=== PATIENT | female | born 1935 | race African-American/Black ===

== ENCOUNTER 2017-02-20 21:25 | Inpatient (IN) | payer OTHER ==
[2017-02-21] MEDS ORDERED: NS 1000 ML 1,000 ML ONE (01:34)
[2017-02-21] MEDS: NS 1000 ML 1,000 ML IV SCH ×3 (02:50→23:30)
[2017-02-21 07:20] VITALS: BMI 49.9
[2017-02-22] MEDS ORDERED: DUONEB 0.5 MG/3 MG IN PRN (09:04)
[2017-02-22] MEDS ORDERED: HumuLIN R SC PRN (09:04)
[2017-02-22] MEDS: NS 1000 ML 1,000 ML IV SCH ×3 (09:09→19:15)
[2017-02-22] MEDS ORDERED: PATIENT'S HOME MEDICATION RESPIRATORY (Losartan Potassium [Losartan Potassium] 25 MG) PO SCH (09:15)
[2017-02-22] MEDS: TAB-A-VITE PO SCH (10:04)
[2017-02-22] MEDS: COZAAR PO SCH (10:04)
[2017-02-22] MEDS: SYNTHROID 100 mcg TAB PO SCH (10:05)
[2017-02-22] MEDS: MIRALAX POWDER (1 DOSE 17GM) PO SCH (10:05)
[2017-02-22] MEDS: PROTONIX TAB 40 MG PO SCH (10:05)
[2017-02-22] MEDS: JUVEN PO SCH ×2 (10:05→20:39)
[2017-02-22] MEDS: ASPIRIN EC 81 MG PO SCH (10:05)
[2017-02-22] MEDS: ZYLOPRIM PO SCH (10:05)
[2017-02-22] MEDS: DUONEB 0.5 MG/3 MG IN PRN ×2 (12:30→17:22)
[2017-02-22 13:54] LABS: BASOPHILS % (AUTO) 0.7 % (0.2-1.0); EOSINOPHILS # (AUTO) 0.3 x10^3/uL (0.0-0.2); EOSINOPHILS % (AUTO) 5.8 % (0.9-2.9); LYMPHOCYTES # (AUTO) 1.3 X10^3/uL (1.3-2.9); MEAN CORPUSCULAR HEMOGLOBIN 26.5 pg (27.0-34.0); MEAN CORPUSCULAR HGB CONC 31.4 g/dL (33.0-35.0); MEAN CORPUSCULAR VOLUME 84.5 fL (80.0-100.0); MEAN PLATELET VOLUME 9.1 fL (7.4-11.0); MONOCYTES # (AUTO) 0.4 x10^3/uL (0.3-0.8); MONOCYTES % (AUTO) 8.6 % (0.0-13.0); NEUTROPHILS # (AUTO) 2.4 x10^3/uL (2.2-4.8); NEUTROPHILS % (AUTO) 54.9 % (42.0-75.0); PLATELET COUNT 179 X10^3/uL (150.0-450.0); RED BLOOD COUNT 3.79 X10^6/uL (3.5-5.4); RED CELL DISTRIBUTION WIDTH 18.9 % (11.6-16.5); WHITE BLOOD COUNT 4.3 X10^3/uL (3.6-10.0)
[2017-02-22 14:00] LABS: ALBUMIN 2.8 g/dL (3.4-5.0); CALCIUM 9.7 mg/dL (8.5-10.1); CARBON DIOXIDE 26.5 mmol/L (21-32); COR CA(FOR HYPOALB) 10.7 mg/dL (8.5-10.1); CREATININE 2.85 mg/dL (0.55-1.02); TOTAL PROTEIN 6.8 g/dL (6.4-8.2)
[2017-02-22] MEDS: LIPITOR TAB 40 MG PO SCH (20:36)
[2017-02-22] MEDS: COREG TAB 12.5 MG PO SCH (20:36)
[2017-02-22] MEDS: LEVEMIR SC SCH (20:38)
[2017-02-23 05:40] LABS: BASOPHILS % (AUTO) 0.5 % (0.2-1.0); EOSINOPHILS # (AUTO) 0.2 x10^3/uL (0.0-0.2); EOSINOPHILS % (AUTO) 5.8 % (0.9-2.9); HEMATOCRIT 29.7 % (36.0-47.0); HEMOGLOBIN 9.3 g/dL (12.0-16.0); LYMPHOCYTES # (AUTO) 1.1 X10^3/uL (1.3-2.9); MEAN CORPUSCULAR HEMOGLOBIN 26.6 pg (27.0-34.0); MEAN CORPUSCULAR HGB CONC 31.5 g/dL (33.0-35.0); MEAN CORPUSCULAR VOLUME 84.5 fL (80.0-100.0); MEAN PLATELET VOLUME 8.6 fL (7.4-11.0); MONOCYTES # (AUTO) 0.3 x10^3/uL (0.3-0.8); MONOCYTES % (AUTO) 7.9 % (0.0-13.0); NEUTROPHILS # (AUTO) 2.4 x10^3/uL (2.2-4.8); NEUTROPHILS % (AUTO) 58.8 % (42.0-75.0); PLATELET COUNT 173 X10^3/uL (150.0-450.0); RED BLOOD COUNT 3.51 X10^6/uL (3.5-5.4); RED CELL DISTRIBUTION WIDTH 19.1 % (11.6-16.5)
[2017-02-23 05:44] LABS: ALBUMIN 2.5 g/dL (3.4-5.0); CARBON DIOXIDE 25.6 mmol/L (21-32); COR CA(FOR HYPOALB) 10.2 mg/dL (8.5-10.1); CREATININE 2.6 mg/dL (0.55-1.02); TOTAL PROTEIN 6.1 g/dL (6.4-8.2)
[2017-02-23] MEDS: NS 1000 ML 1,000 ML IV SCH ×2 (05:46→17:23)
[2017-02-23] MEDS: COLACE CAP 100 MG PO SCH (09:38)
[2017-02-23] MEDS: ASPIRIN EC 81 MG PO SCH (09:38)
[2017-02-23] MEDS: COZAAR PO SCH (09:38)
[2017-02-23] MEDS: PROTONIX TAB 40 MG PO SCH (09:38)
[2017-02-23] MEDS: ZYLOPRIM PO SCH (09:38)
[2017-02-23] MEDS: TAB-A-VITE PO SCH (09:38)
[2017-02-23] MEDS: JUVEN PO SCH ×2 (09:39→20:51)
[2017-02-23] MEDS: SYNTHROID 100 mcg TAB PO SCH (09:39)
[2017-02-23] MEDS: MIRALAX POWDER (1 DOSE 17GM) PO SCH (09:39)
[2017-02-23] MEDS: COREG TAB 12.5 MG PO SCH ×2 (09:39→20:52)
[2017-02-23] MEDS: LEVEMIR SC SCH ×2 (09:41→20:53)
[2017-02-23] MEDS: PLAVIX PO SCH (09:42)
[2017-02-23] MEDS: DUONEB 0.5 MG/3 MG IN PRN (12:30)
[2017-02-23] MEDS: LIPITOR TAB 40 MG PO SCH (20:52)
[2017-02-24 05:27] LABS: BASOPHILS % (AUTO) 0.8 % (0.2-1.0); EOSINOPHILS # (AUTO) 0.3 x10^3/uL (0.0-0.2); EOSINOPHILS % (AUTO) 6.9 % (0.9-2.9); HEMATOCRIT 29.2 % (36.0-47.0); HEMOGLOBIN 9.3 g/dL (12.0-16.0); LYMPHOCYTES # (AUTO) 1.3 X10^3/uL (1.3-2.9); LYMPHOCYTES % (AUTO) 29.8 % (21.0-51.0); MEAN CORPUSCULAR HEMOGLOBIN 26.8 pg (27.0-34.0); MEAN CORPUSCULAR HGB CONC 31.8 g/dL (33.0-35.0); MEAN CORPUSCULAR VOLUME 84.3 fL (80.0-100.0); MEAN PLATELET VOLUME 9.2 fL (7.4-11.0); MONOCYTES # (AUTO) 0.3 x10^3/uL (0.3-0.8); MONOCYTES % (AUTO) 7.2 % (0.0-13.0); NEUTROPHILS # (AUTO) 2.4 x10^3/uL (2.2-4.8); NEUTROPHILS % (AUTO) 55.3 % (42.0-75.0); PLATELET COUNT 158 X10^3/uL (150.0-450.0); RED BLOOD COUNT 3.46 X10^6/uL (3.5-5.4); RED CELL DISTRIBUTION WIDTH 19.5 % (11.6-16.5); WHITE BLOOD COUNT 4.4 X10^3/uL (3.6-10.0)
[2017-02-24 05:38] LABS: ALBUMIN 2.4 g/dL (3.4-5.0); CALCIUM 8.9 mg/dL (8.5-10.1); CARBON DIOXIDE 25.7 mmol/L (21-32); COR CA(FOR HYPOALB) 10.2 mg/dL (8.5-10.1); CREATININE 2.29 mg/dL (0.55-1.02)
[2017-02-24] MEDS: NS 1000 ML 1,000 ML IV SCH ×2 (05:41→16:49)
[2017-02-24] MEDS: PLAVIX PO SCH (08:45)
[2017-02-24] MEDS: PROTONIX TAB 40 MG PO SCH (08:46)
[2017-02-24] MEDS: COREG TAB 12.5 MG PO SCH ×2 (08:46→21:43)
[2017-02-24] MEDS: TAB-A-VITE PO SCH (08:46)
[2017-02-24] MEDS: COZAAR PO SCH (08:47)
[2017-02-24] MEDS: SYNTHROID 100 mcg TAB PO SCH (08:47)
[2017-02-24] MEDS: COLACE CAP 100 MG PO SCH (08:49)
[2017-02-24] MEDS: ZYLOPRIM PO SCH (08:49)
[2017-02-24] MEDS: ASPIRIN EC 81 MG PO SCH (08:49)
[2017-02-24] MEDS: LEVEMIR SC SCH ×2 (08:50→21:46)
[2017-02-24] MEDS: JUVEN PO SCH ×2 (08:51→21:41)
[2017-02-24] MEDS: MIRALAX POWDER (1 DOSE 17GM) PO SCH (08:51)
[2017-02-24] MEDS: DUONEB 0.5 MG/3 MG IN PRN (11:34)
--- NOTE | 2017-02-24 18:00 | PCM.PROG ---
Progress Note - Progress Note for Day of Date: 02/24/17 - Subjective Subjective: patient is a 82-year-old black female who was admitted on 511 with acunic renal failur with lower extremity edema. Patient has had gradual improvement of BUN/creatinine with gentle IV hydration as well as improved lower extremity edema. Patient denies any respiratory distress or any new pain or symptoms. Patient resting quietly. Informed family we will continue gentle hydration for 2-3 more days as patient's renal function improves. Plan to repeat a.m. labs and chest x-ray - Past Medical Family Social History Past Med/Fam/Surg Hx: No changes since H&P Allergies: Allergies Tramadol [From Ultram] Allergy (Intermediate, Verified 11/20/16 10:06) hallucinations - Review of Systems ROS: No change since H&P - Vital Signs and I&O's Vital Signs: Temperature 97.6 F Pulse Rate [Right Brachial] 79 Respiratory Rate 20 Blood Pressure [Right Arm] 146/66 Blood Pressure [Left Arm] 120/67 Blood Pressure 120/67 O2 Sat by Pulse Oximetry 100 Intake and Output: Intake & Output 02/22/17 02/23/17 02/24/17 02/25/17 11:59 11:59 11:59 11:59 Intake Total 3315 2360 2135 480 Output Total 0 Balance 3315 2360 2135 480 - Physical Exam Oriented: Person Eyes: Normal Ear: Normal Nose: Normal Throat: Normal Respiratory: Diminished Cardiovascular: Edema (+1 BILATERAL LOWER EXTREMITY EDEMA TO [place]) Tenderness: Normal Skin: Decreased Turgur Musculoskeletal: Back:Lumbar, Motor Deficit (BILATERAL LOWER EXTREMITY WEAKNESS) Speech Pattern: Clear, Appropriate - Laboratory and Diagnostics Result Diagrams: 02/24/17 03:45 02/24/17 03:45 Labs: Laboratory WBC 4.4 X10^3/uL (3.6-10.0) 02/24/17 03:45 RBC 3.46 X10^6/uL (3.5-5.4) L 02/24/17 03:45 Hgb 9.3 g/dL (12.0-16.0) L 02/24/17 03:45 Hct 29.2 % (36.0-47.0) L 02/24/17 03:45 MCV 84.3 fL (80.0-100.0) 02/24/17 03:45 MCH 26.8 pg (27.0-34.0) L 02/24/17 03:45 MCHC 31.8 g/dL (33.0-35.0) L 02/24/17 03:45 RDW 19.5 % (11.6-16.5) H 02/24/17 03:45 Plt Count 158 X10^3/uL (150.0-450.0) 02/24/17 03:45 MPV 9.2 fL (7.4-11.0) 02/24/17 03:45 Neut % 55.3 % (42.0-75.0) 02/24/17 03:45 Lymph % 29.8 % (21.0-51.0) 02/24/17 03:45 [place] % 7.2 % (0.0-13.0) 02/24/17 03:45 Eos % 6.9 % (0.9-2.9) H 02/24/17 03:45 Baso % 0.8 % (0.2-1.0) 02/24/17 03:45 Neut # 2.4 x10^3/uL (2.2-4.8) 02/24/17 03:45 Lymph # 1.3 X10^3/uL (1.3-2.9) 02/24/17 03:45 [place] # 0.3 x10^3/uL (0.3-0.8) 02/24/17 03:45 Eos # 0.3 x10^3/uL (0.0-0.2) H 02/24/17 03:45 Baso # 0.0 X10^3/uL (0.0-0.1) 02/24/17 03:45 Absolute Nucleated RBC 0.1 /100WBC 02/24/17 03:45 Sodium 143 mmol/L (136-145) 02/24/17 03:45 Corrected Sodium 144 mmol/L (136-145) 02/24/17 03:45 Potassium 4.8 mmol/L (3.5-5.1) 02/24/17 03:45 Chloride 112 mmol/L (98-107) H 02/24/17 03:45 Carbon Dioxide 25.7 mmol/L (21-32) 02/24/17 03:45 BUN 104 mg/dL (7-18) H 02/24/17 03:45 Creatinine 2.29 mg/dL (0.55-1.02) H 02/24/17 03:45 Est GFR (MDRD) Af Amer 26 (>60) L 02/24/17 03:45 Est GFR (MDRD) Non-Af 22 (>60) L 02/24/17 03:45 Glucose 124 mg/dL (65-99) H 02/24/17 03:45 Calcium 8.9 mg/dL (8.5-10.1) 02/24/17 03:45 Corrected Calcium 10.2 mg/dL (8.5-10.1) H 02/24/17 03:45 Total Bilirubin 0.20 mg/dL (0.2-1.0) 02/24/17 03:45 AST 15 Units/L (15-37) 02/24/17 03:45 ALT 16 Units/L (12-78) 02/24/17 03:45 Alkaline Phosphatase 79 Units/L (46-116) 02/24/17 03:45 Total Protein 6.0 g/dL (6.4-8.2) L 02/24/17 03:45 Albumin 2.4 g/dL (3.4-5.0) L 02/24/17 03:45 Globulin 3.6 g/dL (2.5-4.5) 02/24/17 03:45 Albumin/Globulin Ratio 0.7 Ratio (1.1-2.1) L 02/24/17 03:45 - Plan (1) Acute on chronic renal failure Status: Acute Qualifiers: Acute renal failure type: A Chronic kidney disease stage: C Plan: CONTINUE GENTLY IV HYDRATION, REPEAT AM LABS, STRICT I & OS. AM CXR, CONTINUE CURRENT MEDICAITON. BP CONTROL (2) CHF (congestive heart failure) Status: Chronic Qualifiers: Congestive heart failure type: C Congestive heart failure chronicity: C (3) GERD (gastroesophageal reflux disease) Status: Chronic Qualifiers: Esophagitis presence: E (4) Hypertension Status: Chronic Qualifiers: Hypertension type: H
[2017-02-24] MEDS: SNACK - Diabetic Appropriate PO SCH (21:41)
[2017-02-24] MEDS: LIPITOR TAB 40 MG PO SCH (21:43)
[2017-02-25] MEDS: NS 1000 ML 1,000 ML IV SCH ×3 (05:53→19:08)
--- NOTE | 2017-02-25 06:06 | RAD ---
HISTORY: Chest pain, shortness of breath Study: Chest 1 view Comparison: November 26, 2016 Findings: The heart is enlarged. No congestive heart failure is noted. No acute alveolar infiltrates are ident ified. No pleural effusions are present. The bony thorax is unremarkable. IMPRESSION: Cardiomegaly without congestive heart failure Lungs clear Reported By:
[2017-02-25 06:21] LABS: BASOPHILS % (AUTO) 0.9 % (0.2-1.0); EOSINOPHILS # (AUTO) 0.3 x10^3/uL (0.0-0.2); EOSINOPHILS % (AUTO) 6.8 % (0.9-2.9); HEMATOCRIT 30.7 % (36.0-47.0); HEMOGLOBIN 9.5 g/dL (12.0-16.0); LYMPHOCYTES # (AUTO) 1.1 X10^3/uL (1.3-2.9); LYMPHOCYTES % (AUTO) 25.9 % (21.0-51.0); MEAN CORPUSCULAR HEMOGLOBIN 26.3 pg (27.0-34.0); MEAN CORPUSCULAR HGB CONC 30.9 g/dL (33.0-35.0); MEAN PLATELET VOLUME 9.2 fL (7.4-11.0); MONOCYTES # (AUTO) 0.3 x10^3/uL (0.3-0.8); MONOCYTES % (AUTO) 7.1 % (0.0-13.0); NEUTROPHILS # (AUTO) 2.5 x10^3/uL (2.2-4.8); NEUTROPHILS % (AUTO) 59.3 % (42.0-75.0); PLATELET COUNT 162 X10^3/uL (150.0-450.0); RED BLOOD COUNT 3.61 X10^6/uL (3.5-5.4); RED CELL DISTRIBUTION WIDTH 18.7 % (11.6-16.5); WHITE BLOOD COUNT 4.3 X10^3/uL (3.6-10.0)
[2017-02-25 06:45] LABS: ALBUMIN 2.4 g/dL (3.4-5.0); CARBON DIOXIDE 23.7 mmol/L (21-32); COR CA(FOR HYPOALB) 10.3 mg/dL (8.5-10.1); CREATININE 2.2 mg/dL (0.55-1.02); TOTAL PROTEIN 5.9 g/dL (6.4-8.2)
[2017-02-25] MEDS: TAB-A-VITE PO SCH (08:49)
[2017-02-25] MEDS: MIRALAX POWDER (1 DOSE 17GM) PO SCH (08:49)
[2017-02-25] MEDS: COREG TAB 12.5 MG PO SCH ×2 (08:49→22:14)
[2017-02-25] MEDS: COZAAR PO SCH (08:49)
[2017-02-25] MEDS: SYNTHROID 100 mcg TAB PO SCH (08:49)
[2017-02-25] MEDS: PROTONIX TAB 40 MG PO SCH (08:50)
[2017-02-25] MEDS: ASPIRIN EC 81 MG PO SCH (08:50)
[2017-02-25] MEDS: ZYLOPRIM PO SCH (08:50)
[2017-02-25] MEDS: COLACE CAP 100 MG PO SCH (08:50)
[2017-02-25] MEDS: JUVEN PO SCH ×2 (08:51→22:17)
[2017-02-25] MEDS: PLAVIX PO SCH (08:52)
[2017-02-25] MEDS: LEVEMIR SC SCH ×2 (09:01→22:17)
[2017-02-25] MEDS: DUONEB 0.5 MG/3 MG IN PRN (11:31)
--- NOTE | 2017-02-25 17:30 | PCM.PROG ---
Progress Note - Subjective Subjective: patient is a 82-year-old black female who was admitted on 511 with chronic renal failure with lower extremity edema. Patient has had gradual improvement of BUN/creatinine with gentle IV hydration as well as improved lower extremity edema. Patient denies any respiratory distress or any new pain or symptoms. Patient resting quietly. Informed family we will continue gentle hydration. Plan to repeat a.m. labs and chest x-ray - Past Medical Family Social History Past Med/Fam/Surg Hx: No changes since H&P Allergies: Allergies Tramadol [From Ultram] Allergy (Intermediate, Verified 11/20/16 10:06) hallucinations - Review of Systems ROS: No change since H&P - Vital Signs and I&O's Vital Signs: Temperature 97.8 F Pulse Rate [Right Brachial] 78 Pulse Rate 90 Respiratory Rate 18 Blood Pressure [Right Arm] 144/63 Blood Pressure [Left Arm] 120/67 Blood Pressure 120/67 O2 Sat by Pulse Oximetry 98 Intake and Output: Intake & Output 02/23/17 02/24/17 02/25/17 02/26/17 11:59 11:59 11:59 11:59 Intake Total 2360 2135 1050 600 Output Total 0 Balance 2360 2135 1050 600 - Physical Exam Oriented: Person Eyes: Normal Ear: Normal Nose: Normal Throat: Normal Respiratory: Diminished Cardiovascular: Edema (+1 BILATERAL LOWER EXTREMITY EDEMA TO [place]) Tenderness: Normal Skin: Decreased Turgur Musculoskeletal: Back:Lumbar, Motor Deficit (BILATERAL LOWER EXTREMITY WEAKNESS) Speech Pattern: Clear, Appropriate - Laboratory and Diagnostics Result Diagrams: 02/25/17 04:40 02/25/17 04:40 Labs: Laboratory WBC 4.3 X10^3/uL (3.6-10.0) 02/25/17 04:40 RBC 3.61 X10^6/uL (3.5-5.4) 02/25/17 04:40 Hgb 9.5 g/dL (12.0-16.0) L 02/25/17 04:40 Hct 30.7 % (36.0-47.0) L 02/25/17 04:40 MCV 85.0 fL (80.0-100.0) 02/25/17 04:40 MCH 26.3 pg (27.0-34.0) L 02/25/17 04:40 MCHC 30.9 g/dL (33.0-35.0) L 02/25/17 04:40 RDW 18.7 % (11.6-16.5) H 02/25/17 04:40 Plt Count 162 X10^3/uL (150.0-450.0) 02/25/17 04:40 MPV 9.2 fL (7.4-11.0) 02/25/17 04:40 Neut % 59.3 % (42.0-75.0) 02/25/17 04:40 Lymph % 25.9 % (21.0-51.0) 02/25/17 04:40 [place] % 7.1 % (0.0-13.0) 02/25/17 04:40 Eos % 6.8 % (0.9-2.9) H 02/25/17 04:40 Baso % 0.9 % (0.2-1.0) 02/25/17 04:40 Neut # 2.5 x10^3/uL (2.2-4.8) 02/25/17 04:40 Lymph # 1.1 X10^3/uL (1.3-2.9) L 02/25/17 04:40 [place] # 0.3 x10^3/uL (0.3-0.8) 02/25/17 04:40 Eos # 0.3 x10^3/uL (0.0-0.2) H 02/25/17 04:40 Baso # 0.0 X10^3/uL (0.0-0.1) 02/25/17 04:40 Absolute Nucleated RBC 0.1 /100WBC 02/25/17 04:40 Sodium 144 mmol/L (136-145) 02/25/17 04:40 Corrected Sodium 145 mmol/L (136-145) 02/25/17 04:40 Potassium 4.9 mmol/L (3.5-5.1) 02/25/17 04:40 Chloride 113 mmol/L (98-107) H 02/25/17 04:40 Carbon Dioxide 23.7 mmol/L (21-32) 02/25/17 04:40 BUN 88 mg/dL (7-18) H 02/25/17 04:40 Creatinine 2.20 mg/dL (0.55-1.02) H 02/25/17 04:40 Est GFR (MDRD) Af Amer 27 (>60) L 02/25/17 04:40 Est GFR (MDRD) Non-Af 23 (>60) L 02/25/17 04:40 Glucose 161 mg/dL (65-99) H 02/25/17 04:40 Calcium 9.0 mg/dL (8.5-10.1) 02/25/17 04:40 Corrected Calcium 10.3 mg/dL (8.5-10.1) H 02/25/17 04:40 Total Bilirubin 0.20 mg/dL (0.2-1.0) 02/25/17 04:40 AST 18 Units/L (15-37) 02/25/17 04:40 ALT 17 Units/L (12-78) 02/25/17 04:40 Alkaline Phosphatase 82 Units/L (46-116) 02/25/17 04:40 Total Protein 5.9 g/dL (6.4-8.2) L 02/25/17 04:40 Albumin 2.4 g/dL (3.4-5.0) L 02/25/17 04:40 Globulin 3.5 g/dL (2.5-4.5) 02/25/17 04:40 Albumin/Globulin Ratio 0.7 Ratio (1.1-2.1) L 02/25/17 04:40 - Plan (1) Acute on chronic renal failure Status: Acute Qualifiers: Acute renal failure type: A Chronic kidney disease stage: C Plan: CONTINUE GENTLY IV HYDRATION, REPEAT AM LABS, STRICT I & OS. AM CXR, CONTINUE CURRENT MEDICAITON. BP CONTROL (2) CHF (congestive heart failure) Status: Chronic Qualifiers: Congestive heart failure type: C Congestive heart failure chronicity: C Plan: continue bp and lipid control. repeat am cxr (3) GERD (gastroesophageal reflux disease) Status: Chronic Qualifiers: Esophagitis presence: E (4) Hypertension Status: Chronic Qualifiers: Hypertension type: H
[2017-02-25] MEDS: SNACK - Diabetic Appropriate PO SCH (22:12)
[2017-02-25] MEDS: LIPITOR TAB 40 MG PO SCH (22:14)
[2017-02-26] MEDS ORDERED: ROBITUSSIN DM PO PRN (05:44)
--- NOTE | 2017-02-26 06:26 | RAD ---
HISTORY: Follow up congestive heart failure, chest pain, shortness of breath Study: Chest one view Comparison: February 25, 2017 Findings: The patient is rotated to the right. The heart is enlarged. No congestive heart failure is noted. No acute alveolar infiltrates or pleural effusions are identified. The bony thorax is unremarkable. IMPRESSION: Cardiomegaly without congestive heart failure Lungs clear Reported By:
[2017-02-26 06:52] LABS: BASOPHILS % (AUTO) 0.7 % (0.2-1.0); EOSINOPHILS # (AUTO) 0.3 x10^3/uL (0.0-0.2); EOSINOPHILS % (AUTO) 6.8 % (0.9-2.9); HEMATOCRIT 29.8 % (36.0-47.0); HEMOGLOBIN 9.3 g/dL (12.0-16.0); LYMPHOCYTES # (AUTO) 1.3 X10^3/uL (1.3-2.9); LYMPHOCYTES % (AUTO) 26.3 % (21.0-51.0); MEAN CORPUSCULAR HEMOGLOBIN 26.5 pg (27.0-34.0); MEAN CORPUSCULAR HGB CONC 31.2 g/dL (33.0-35.0); MEAN PLATELET VOLUME 9.2 fL (7.4-11.0); MONOCYTES # (AUTO) 0.3 x10^3/uL (0.3-0.8); MONOCYTES % (AUTO) 6.4 % (0.0-13.0); NEUTROPHILS % (AUTO) 59.8 % (42.0-75.0); PLATELET COUNT 139 X10^3/uL (150.0-450.0); RED CELL DISTRIBUTION WIDTH 19.3 % (11.6-16.5)
[2017-02-26 07:01] LABS: ALBUMIN 2.3 g/dL (3.4-5.0); CALCIUM 9.1 mg/dL (8.5-10.1); CARBON DIOXIDE 23.4 mmol/L (21-32); COR CA(FOR HYPOALB) 10.5 mg/dL (8.5-10.1); CREATININE 2.07 mg/dL (0.55-1.02); TOTAL PROTEIN 5.8 g/dL (6.4-8.2)
[2017-02-26 07:35] LABS: WHITE BLOOD COUNT 5.1 X10^3/uL (3.6-10.0)
[2017-02-26 07:36] LABS: PLATELET MORPHOLOGY COMMENT NORMAL (NORMAL)
[2017-02-26] MEDS: TAB-A-VITE PO SCH (09:01)
[2017-02-26] MEDS: PROTONIX TAB 40 MG PO SCH (09:01)
[2017-02-26] MEDS: COZAAR PO SCH (09:01)
[2017-02-26] MEDS: COLACE CAP 100 MG PO SCH (09:01)
[2017-02-26] MEDS: SYNTHROID 100 mcg TAB PO SCH (09:02)
[2017-02-26] MEDS: ZYLOPRIM PO SCH (09:02)
[2017-02-26] MEDS: COREG TAB 12.5 MG PO SCH (09:02)
[2017-02-26] MEDS: ASPIRIN EC 81 MG PO SCH (09:02)
[2017-02-26] MEDS: PLAVIX PO SCH (09:03)
[2017-02-26] MEDS: MIRALAX POWDER (1 DOSE 17GM) PO SCH (09:03)
[2017-02-26] MEDS: JUVEN PO SCH (09:03)
[2017-02-26] MEDS: NS 1000 ML 1,000 ML IV SCH (09:08)
[2017-02-26] MEDS: LEVEMIR SC SCH ×2 (09:09→09:10)
[2017-02-26] MEDS: DUONEB 0.5 MG/3 MG IN PRN (12:59)
[2017-02-26 14:36] VITALS: BP 127/66
== END 2017-02-26 14:00 | DRG 684 ==
LOC: MED/SURG 21:25 → UNDOADMIN 21:25 → MED/SURG 02-21 01:30 → UNDODISIN 02-26 14:00
PROVIDERS: ADMIT Internal Medicine; ATTEND Internal Medicine
DX: N17.8 Other acute kidney failure (principal); R60.0 Localized edema; N18.9 Chronic kidney disease, unspecified; R68.89 Other general symptoms and signs; I50.9 Heart failure, unspecified; K21.9 Gastro-esophageal reflux disease without esophagitis; I12.9 Hypertensive chronic kidney disease with stage 1 through stage 4 chronic kidney disease, or unspecified chronic kidney disease; R26.89 Other abnormalities of gait and mobility
CPT/HCPCS: 36415; 71010; 80053; 85025; 94640; A4222; 1956; J1815; J7620

== ENCOUNTER → 2017-03-31 | Outpatient (CLI) | payer OTHER ==
--- NOTE | 2017-04-01 07:52 | RAD ---
HISTORY: Chest pain, congestion Study: Chest one view Comparison: February 26, 2017 Findings: The trachea is midline. The cardiac silhouette is upper limits normal in size. No congestive heart failure is noted. The aorta is ectatic.. The lungs are clear without focal infiltrate or effusion. The bony thorax is unremarkable. IMPRESSION: 1. No acute cardiopulmonary disease. Reported By:
--- NOTE | 2017-04-01 07:54 | RAD ---
HISTORY: Left shoulder pain, nontraumatic Study: Left shoulder three view Comparison: None Technique kevyn positioning is nonstandard. Findings: The clavicle, scapula, and proximal humerus appear intact as do the left upper ribs. There is poor v isualization of the AC joint. There is marked superior humeral migration suggestive of chronic rotat or cuff disease. There is degenerative joint disease in the glenohumeral joint. IMPRESSION: Superior humeral migration suggestive of chronic rotator cuff disease Glenohumeral degenerative joint disease Reported By:
== END ==
LOC: RAD 16:05
PROVIDERS: ATTEND Internal Medicine
DX: R07.89 Other chest pain (principal); R09.89 Other specified symptoms and signs involving the circulatory and respiratory systems
CPT/HCPCS: 71010; 73030

== ENCOUNTER → 2017-04-09 | Outpatient (CLI) | payer OTHER, MEDICAID ==
--- NOTE | 2017-04-10 08:17 | VAS ---
HISTORY: Right foot wound. Study: Bilateral lower extremity arterial ultrasound. Comparison: None. Technique: Multiple fernandes scale and color flow Doppler images of the right and left lower extremity a rterial system were obtained. Interrogation of the common femoral artery, superficial femoral arter y, popliteal artery, and tibial arteries was performed. Findings: Triphasic waveforms are seen throughout the right and left lower extremity from the common femoral a rterial system to the superficial femoral artery. Monophasic waveforms are seen from the popliteal a rtery down to the dorsalis pedis artery bilaterally with associated calcified plaque. This correspon ds to approximately 20-50% stenosis. The technology sales specialist was unable to obtain the ABIs secondary to technical difficulties. IMPRESSION: 1. Normal sonographic evaluation of the right and left lower extremity arterial system from the com mon femoral arteries to the superficial femoral arteries. 2. Approximately 20-50% stenosis from the bilateral popliteal arteries to the bilateral dorsalis ped is arteries. Reported By:
== END | disposition home or self-care (01) ==
LOC: RAD 12:08
PROVIDERS: ATTEND Nurse Practitioner Family
DX: S91.301A Unspecified open wound, right foot, initial encounter (principal); X58.XXXA Exposure to other specified factors, initial encounter; I70.8 Atherosclerosis of other arteries; M79.89 Other specified soft tissue disorders
CPT/HCPCS: 93925

== ENCOUNTER 2017-06-09 17:34 | Inpatient (IN) | payer OTHER, MEDICAID ==
[2017-06-09 21:00] VITALS: BMI 46.5
[2017-06-09] MEDS: PROTONIX INJ 40 MG VIAL IVP SCH (21:14)
[2017-06-09] MEDS: NS 1000 ML 1,000 ML IV SCH (21:15)
[2017-06-09 21:21] LABS: ALBUMIN 2.9 g/dL (3.4-5.0); CALCIUM 9.1 mg/dL (8.5-10.1); CARBON DIOXIDE 27.5 mmol/L (21-32); CREATININE 3.45 mg/dL (0.55-1.02); MAGNESIUM 1.9 mg/dL (1.7-2.9); TOTAL PROTEIN 6.8 g/dL (6.4-8.2)
[2017-06-09 21:36] LABS: BASOPHILS % (AUTO) 0.6 % (0.2-1.0); EOSINOPHILS # (AUTO) 0.3 x10^3/uL (0.0-0.2); HEMATOCRIT 31.9 % (36.0-47.0); HEMOGLOBIN 10.2 g/dL (12.0-16.0); LYMPHOCYTES # (AUTO) 1.1 X10^3/uL (1.3-2.9); LYMPHOCYTES % (AUTO) 21.6 % (21.0-51.0); MEAN CORPUSCULAR HEMOGLOBIN 28.1 pg (27.0-34.0); MEAN CORPUSCULAR HGB CONC 31.8 g/dL (33.0-35.0); MEAN CORPUSCULAR VOLUME 88.3 fL (80.0-100.0); MEAN PLATELET VOLUME 8.8 fL (7.4-11.0); MONOCYTES # (AUTO) 0.4 x10^3/uL (0.3-0.8); MONOCYTES % (AUTO) 8.1 % (0.0-13.0); NEUTROPHILS # (AUTO) 3.3 x10^3/uL (2.2-4.8); NEUTROPHILS % (AUTO) 64.7 % (42.0-75.0); PLATELET COUNT 224 X10^3/uL (150.0-450.0); RED BLOOD COUNT 3.62 X10^6/uL (3.5-5.4); WHITE BLOOD COUNT 5.1 X10^3/uL (3.6-10.0)
[2017-06-09] MEDS: HumuLIN R SUBCUT PRN (22:13)
[2017-06-09] MEDS: SNACK - Diabetic Appropriate PO SCH (22:14)
[2017-06-10] MEDS: TYLENOL #3 TAB (W/CODEINE) PO PRN ×2 (00:11→14:18)
[2017-06-10 00:35] LABS: BILIRUBIN,URINE NEGATIVE (NEGATIVE); BLOOD/HEMOGLOBIN,URINE NEGATIVE (NEGATIVE); GLUCOSE, URINE NEGATIVE (NEGATIVE); KETONES,URINE NEGATIVE (NEGATIVE); LEUKOCYTE ESTERASE ,URINE 2+ (NEGATIVE); NITRITES,URINE NEGATIVE (NEGATIVE); PROTEIN,URINE NEGATIVE (NEGATIVE); UROBILINOGEN,URINE NORMAL (NORMAL)
[2017-06-10 00:47] LABS: COLOR,URINE PALE YELLOW (YELLOW)
[2017-06-10 00:48] LABS: APPEARANCE,URINE CLEAR (CLEAR); BACTERIA,URINE 2+ /HPF (NEGATIVE); RBC,URINE NONE SEEN /HPF (NEGATIVE); SQUAMOUS EPITHELIAL CELL,UR RARE /HPF (NEGATIVE)
[2017-06-10 05:24] LABS: BASOPHILS % (AUTO) 0.7 % (0.2-1.0); EOSINOPHILS # (AUTO) 0.3 x10^3/uL (0.0-0.2); EOSINOPHILS % (AUTO) 5.3 % (0.9-2.9); HEMATOCRIT 29.6 % (36.0-47.0); HEMOGLOBIN 9.5 g/dL (12.0-16.0); LYMPHOCYTES # (AUTO) 1.3 X10^3/uL (1.3-2.9); LYMPHOCYTES % (AUTO) 27.6 % (21.0-51.0); MEAN CORPUSCULAR HEMOGLOBIN 28.2 pg (27.0-34.0); MEAN CORPUSCULAR VOLUME 87.9 fL (80.0-100.0); MEAN PLATELET VOLUME 8.6 fL (7.4-11.0); MONOCYTES # (AUTO) 0.4 x10^3/uL (0.3-0.8); MONOCYTES % (AUTO) 8.6 % (0.0-13.0); NEUTROPHILS # (AUTO) 2.8 x10^3/uL (2.2-4.8); NEUTROPHILS % (AUTO) 57.8 % (42.0-75.0); PLATELET COUNT 194 X10^3/uL (150.0-450.0); RED BLOOD COUNT 3.37 X10^6/uL (3.5-5.4); RED CELL DISTRIBUTION WIDTH 15.2 % (11.6-16.5); WHITE BLOOD COUNT 4.9 X10^3/uL (3.6-10.0)
[2017-06-10 05:33] LABS: ALBUMIN 2.7 g/dL (3.4-5.0); CALCIUM 8.9 mg/dL (8.5-10.1); CARBON DIOXIDE 28.9 mmol/L (21-32); COR CA(FOR HYPOALB) 9.9 mg/dL (8.5-10.1); CREATININE 3.26 mg/dL (0.55-1.02); TOTAL PROTEIN 6.3 g/dL (6.4-8.2)
[2017-06-10] MEDS: HumuLIN R SUBCUT PRN ×4 (05:49→21:06)
--- NOTE | 2017-06-10 06:13 | RAD ---
HISTORY: Abdominal pain Study: KUB Comparison: None Findings: Examination is underpenetrated. The abdominal gas pattern is nonspecific and nonobstructive. No defin ite abnormal masses are identified. No definite abnormal calcifications are identified although small calcifications would be difficult to detect on this under penetrated examination. The bones are oste openic. IMPRESSION: Suboptimal examination technically No definite acute intra-abdominal abnormality Reported By:
--- NOTE | 2017-06-10 06:14 | RAD ---
HISTORY: Abdominal pain Study: AP chest Comparison: None Findings: The heart is enlarged. No congestive heart failure is noted. The aorta is calcified and mildly ectati c. The lung [place] are clear. No pleural effusions are identified. The bony thorax is unremarkable wi th the exception of chronic rotator cuff disease on the left. IMPRESSION: Cardiomegaly without congestive heart failure Lungs clear Reported By:
[2017-06-10] MEDS: PROTONIX INJ 40 MG VIAL IVP SCH (08:07)
[2017-06-10] MEDS: NS 1000 ML 1,000 ML IV SCH ×2 (08:08→17:50)
[2017-06-10] MEDS ORDERED: TYLENOL #3 TAB (W/CODEINE) PO PRN (09:27)
[2017-06-10] MEDS ORDERED: BUMETANIDE 2 MG PO SCH (09:30)
--- NOTE | 2017-06-10 13:31 | DR.H&P ---
H&P - History & Physical for Day of: H&P Date: 06/09/17 - Chief Complaint Chief Complaint: NAUSEA AND VOMITING, EPIGASTRIC PAIN, UTI - Allergies Allergies/Adverse Reactions: Allergies Allergy/AdvReac Type Severity Reaction Status Date / Time tramadol AdvReac Verified 04/28/17 14:27 - History of Present Illness History of Present Illness: 82 BF RESIDENT OF [facility] DIRECT ADMIT FOR TREATMENT OF N/V AND ABDOMINAL PAIN, RESULTING IN DEHYDRATION AND ACUTE ON CHRONIC RENAL FAILURE, PT HAS HX OF CHF WELL. PT HAS BEEN TREATED WITH ZOFRAN AT TO AND HAD ABD SERIES ONE WEEK AGO, HER LABS REVEALED INCREAED BUN CREAT FROM BASELINE. PLAN TO ADMIT FOR GENTLY IV HYDRATION, TREATMENT OF UTI AND FURTHER EVALUATION OF N/V ABDOMINAL PAIN - Past Medical History Past Medical History: Arthritis, Diabetes, Hypertension, Renal Disease - Past Surgical History Surgical History: Cholecystectomy, Ortho Surgery - Social History Does patient currently use any type of tobacco product: No Have you used tobacco products in the last 12 months: No Type of Tobacco Use: None Does any household member use tobacco: No Alcohol Use: None Drug Use: None - Medications Home Medications: Acetaminophen with Codeine [Tylenol with Codeine #3 Tablet] 1 tab PO BID PRN [History Confirmed 06/09/17] Amlodipine Besylate [NORVASC 5 MG *] 5 mg PO HS 06/09/17 [History Confirmed ] Bumetanide 2 mg PO DAILY 06/09/17 [History Confirmed 06/09/17] Ondansetron HCl [ZOFRAN TAB 4 MG *] 4 mg PO BID PRN 06/09/17 [History Confirmed 06/09/17] - Review of Systems Constitutional: Weakness Eyes: No Symptoms Reported ENT: No Symptoms Reported Respiratory: Shortness of Breath Cardiovascular: Edema Gastrointestinal: Nausea, Vomiting, Abdominal Pain Genitourinary: Incontinence Musculoskeletal: Back Pain, Leg Pain Skin: No Symptoms Reported Neurological: Weakness - Physical Exam Vital Signs: Temperature 97.5 F Pulse Rate [Right Brachial] 74 Pulse Rate [Left Brachial] 86 Respiratory Rate 20 Blood Pressure [Right Arm] 140/60 Blood Pressure [Left Arm] 120/67 Blood Pressure 127/66 O2 Sat by Pulse Oximetry 98 Oriented: Normal Eyes: Normal Ear: Normal Nose: Normal Throat: Normal Respiratory: RLL Diminished, LLL Diminished Cardiovascular: Normal, Edema : Normal Auscultation: Bowel Sounds: Normal Palpation: Normal Tenderness: RUQ, Epigastric Skin: Decreased Turgur Musculoskeletal: Back:Thoracic, Back:Lumbar, Motor Deficit Mood Description: Calm Speech Pattern: Clear, Appropriate - Assessment/Plan (1) Acute on chronic renal failure Status: Acute Plan: PLAN TO ADMIT FOR GENTLY IV HYDRATION, TREATMENT OF UTI AND FURTHER EVALUATION OF N/V ABDOMINAL PAIN. RESUME HOME MEDS. BLOOD SUGAR CONTROL (2) CHF (congestive heart failure) Status: Chronic (3) Nausea & vomiting Status: Acute (4) Dementia Status: Chronic (5) Diabetes Status: Chronic (6) GERD (gastroesophageal reflux disease) Status: Chronic (7) Hypertension Status: Chronic
--- NOTE | 2017-06-10 13:36 | PCM.PROG ---
Progress Note - Progress Note for Day of Date: 06/10/17 - Subjective Subjective: IMPROVING NAUSEA, CONTINUED EPIGASTRIC PAIN. WILL CONTINUE PPI THERAPY, IV ROCEPHIN FOR UIT, GENTLY HYDRATION - Past Medical Family Social History Past Med/Fam/Surg Hx: No changes since H&P Allergies: Allergies tramadol Adverse Reaction (Verified 04/28/17 14:27) - Vital Signs and I&O's Vital Signs: Temperature 97.5 F Pulse Rate [Right Brachial] 74 Pulse Rate [Left Brachial] 86 Respiratory Rate 20 Blood Pressure [Right Arm] 140/60 Blood Pressure [Left Arm] 120/67 Blood Pressure 127/66 O2 Sat by Pulse Oximetry 98 Intake and Output: Intake & Output 06/08/17 06/09/17 06/10/17 06/11/17 11:59 11:59 11:59 11:59 Intake Total 382 Balance 382 - Physical Exam Oriented: Normal Eyes: Normal Ear: Normal Nose: Normal Throat: Normal Respiratory: Diminished Cardiovascular: Normal, Edema : Normal Auscultation: Bowel Sounds: Normal Tenderness: RUQ, Epigastric Skin: Decreased Turgur Musculoskeletal: Back:Thoracic, Back:Lumbar, Motor Deficit Mood Description: Calm Speech Pattern: Clear, Appropriate - Laboratory and Diagnostics Result Diagrams: 06/10/17 05:00 06/10/17 05:00 Labs: Laboratory WBC 4.9 X10^3/uL (3.6-10.0) 06/10/17 05:00 RBC 3.37 X10^6/uL (3.5-5.4) L 06/10/17 05:00 Hgb 9.5 g/dL (12.0-16.0) L 06/10/17 05:00 Hct 29.6 % (36.0-47.0) L 06/10/17 05:00 MCV 87.9 fL (80.0-100.0) 06/10/17 05:00 MCH 28.2 pg (27.0-34.0) 06/10/17 05:00 MCHC 32.0 g/dL (33.0-35.0) L 06/10/17 05:00 RDW 15.2 % (11.6-16.5) 06/10/17 05:00 Plt Count 194 X10^3/uL (150.0-450.0) 06/10/17 05:00 MPV 8.6 fL (7.4-11.0) 06/10/17 05:00 Neut % 57.8 % (42.0-75.0) 06/10/17 05:00 Lymph % 27.6 % (21.0-51.0) 06/10/17 05:00 [place] % 8.6 % (0.0-13.0) 06/10/17 05:00 Eos % 5.3 % (0.9-2.9) H 06/10/17 05:00 Baso % 0.7 % (0.2-1.0) 06/10/17 05:00 Neut # 2.8 x10^3/uL (2.2-4.8) 06/10/17 05:00 Lymph # 1.3 X10^3/uL (1.3-2.9) 06/10/17 05:00 [place] # 0.4 x10^3/uL (0.3-0.8) 06/10/17 05:00 Eos # 0.3 x10^3/uL (0.0-0.2) H 06/10/17 05:00 Baso # 0.0 X10^3/uL (0.0-0.1) 06/10/17 05:00 Absolute Nucleated RBC 0.0 /100WBC 06/10/17 05:00 Sodium 137 mmol/L (136-145) 06/10/17 05:00 Corrected Sodium 138 mmol/L (136-145) 06/10/17 05:00 Potassium 4.9 mmol/L (3.5-5.1) 06/10/17 05:00 Chloride 101 mmol/L (98-107) 06/10/17 05:00 Carbon Dioxide 28.9 mmol/L (21-32) 06/10/17 05:00 BUN 87 mg/dL (7-18) H 06/10/17 05:00 Creatinine 3.26 mg/dL (0.55-1.02) H 06/10/17 05:00 Est GFR (MDRD) Af Amer 17 (>60) L 06/10/17 05:00 Est GFR (MDRD) Non-Af 14 (>60) L 06/10/17 05:00 Glucose 161 mg/dL (65-99) H 06/10/17 05:00 Calcium 8.9 mg/dL (8.5-10.1) 06/10/17 05:00 Corrected Calcium 9.9 mg/dL (8.5-10.1) 06/10/17 05:00 Magnesium 1.9 mg/dL (1.7-2.9) 06/09/17 20:59 Total Bilirubin 0.30 mg/dL (0.2-1.0) 06/10/17 05:00 AST 15 Units/L (15-37) 06/10/17 05:00 ALT 14 Units/L (12-78) 06/10/17 05:00 Alkaline Phosphatase 97 Units/L (46-116) 06/10/17 05:00 Total Protein 6.3 g/dL (6.4-8.2) L 06/10/17 05:00 Albumin 2.7 g/dL (3.4-5.0) L 06/10/17 05:00 Globulin 3.6 g/dL (2.5-4.5) 06/10/17 05:00 Albumin/Globulin Ratio 0.8 Ratio (1.1-2.1) L 06/10/17 05:00 Specimen Type Catherized urine 06/10/17 00:19 Urine Color Pale yellow (YELLOW) 06/10/17 00:19 Urine Appearance Clear (CLEAR) 06/10/17 00:19 Urine pH 7.0 (5.0 - 8.0) 06/10/17 00:19 Ur Specific [place] 1.010 (1.000-1.030) 06/10/17 00:19 Urine Protein Negative (NEGATIVE) 06/10/17 00:19 Urine Glucose (UA) Negative (NEGATIVE) 06/10/17 00:19 Urine Ketones Negative (NEGATIVE) 06/10/17 00:19 Urine Occult Blood Negative (NEGATIVE) 06/10/17 00:19 Urine Nitrite Negative (NEGATIVE) 06/10/17 00:19 Urine Bilirubin Negative (NEGATIVE) 06/10/17 00:19 Urine Urobilinogen Normal (NORMAL) 06/10/17 00:19 Ur Leukocyte Esterase 2+ (NEGATIVE) 06/10/17 00:19 Urine RBC None seen /HPF (NEGATIVE) 06/10/17 00:19 Urine WBC 6-8 /HPF (NEGATIVE) 06/10/17 00:19 Ur Squamous Epith Cells Rare /HPF (NEGATIVE) 06/10/17 00:19 Urine Bacteria 2+ /HPF (NEGATIVE) 06/10/17 00:19 Ur Culture Indicated? Yes/culture set up 06/10/17 00:19 - Plan (1) Acute on chronic renal failure Status: Acute Plan: GENTLY IV HYDRATION, REPEAT AM LABS. i & OS (2) CHF (congestive heart failure) Status: Chronic Plan: BP CONTROL AND CXR, SUPPLEMENTAL O2 (3) Nausea & vomiting Status: Acute Plan: ABD SERIES (4) Dementia Status: Chronic (5) Diabetes Status: Chronic (6) GERD (gastroesophageal reflux disease) Status: Chronic (7) Hypertension Status: Chronic
[2017-06-10] MEDS: ROCEPHIN VIAL 1 GM 1 GM in NS 50 ML IV + SPIKE MINIBAG* 50 ML IV SCH (14:18)
[2017-06-10] MEDS ORDERED: ZOFRAN INJ 4 MG VIAL IVP PRN (17:40)
[2017-06-10] MEDS: COREG TAB 12.5 MG PO SCH (20:15)
[2017-06-10] MEDS: BUMEX TAB 1 MG PO SCH (20:15)
[2017-06-10] MEDS: NORVASC TAB 5 MG PO SCH (20:15)
[2017-06-10] MEDS: SNACK - Diabetic Appropriate PO SCH (21:00)
[2017-06-11] MEDS: HumuLIN R SUBCUT PRN ×4 (05:41→20:32)
[2017-06-11] MEDS: NS 1000 ML 1,000 ML IV SCH ×2 (06:22→17:47)
[2017-06-11 06:27] LABS: ALBUMIN 2.5 g/dL (3.4-5.0); CALCIUM 8.8 mg/dL (8.5-10.1); CARBON DIOXIDE 28.9 mmol/L (21-32); CREATININE 3.12 mg/dL (0.55-1.02); TOTAL PROTEIN 6.1 g/dL (6.4-8.2)
[2017-06-11 06:54] LABS: BASOPHILS % (AUTO) 0.8 % (0.2-1.0); EOSINOPHILS # (AUTO) 0.3 x10^3/uL (0.0-0.2); EOSINOPHILS % (AUTO) 6.4 % (0.9-2.9); HEMATOCRIT 29.8 % (36.0-47.0); HEMOGLOBIN 9.6 g/dL (12.0-16.0); LYMPHOCYTES % (AUTO) 23.1 % (21.0-51.0); MEAN CORPUSCULAR HEMOGLOBIN 28.3 pg (27.0-34.0); MEAN CORPUSCULAR HGB CONC 32.1 g/dL (33.0-35.0); MEAN CORPUSCULAR VOLUME 88.2 fL (80.0-100.0); MEAN PLATELET VOLUME 8.9 fL (7.4-11.0); MONOCYTES # (AUTO) 0.3 x10^3/uL (0.3-0.8); MONOCYTES % (AUTO) 7.6 % (0.0-13.0); NEUTROPHILS # (AUTO) 2.7 x10^3/uL (2.2-4.8); NEUTROPHILS % (AUTO) 62.1 % (42.0-75.0); PLATELET COUNT 178 X10^3/uL (150.0-450.0); RED BLOOD COUNT 3.37 X10^6/uL (3.5-5.4); RED CELL DISTRIBUTION WIDTH 14.9 % (11.6-16.5); WHITE BLOOD COUNT 4.4 X10^3/uL (3.6-10.0)
[2017-06-11] MEDS: COZAAR PO SCH (08:19)
[2017-06-11] MEDS: ZYLOPRIM PO SCH (08:20)
[2017-06-11] MEDS: SYNTHROID 100 mcg TAB PO SCH (08:20)
[2017-06-11] MEDS: COREG TAB 12.5 MG PO SCH ×2 (08:20→20:31)
[2017-06-11] MEDS: PROTONIX INJ 40 MG VIAL IVP SCH (08:21)
[2017-06-11] MEDS: ROCEPHIN VIAL 1 GM 1 GM in NS 50 ML IV + SPIKE MINIBAG* 50 ML IV SCH (08:21)
[2017-06-11] MEDS: BUMEX TAB 1 MG PO SCH ×2 (08:21→20:31)
[2017-06-11] MEDS: LEVEMIR SC SCH (08:21)
[2017-06-11] MEDS: PLAVIX PO SCH (08:21)
[2017-06-11] MEDS: TYLENOL #3 TAB (W/CODEINE) PO PRN ×2 (08:23→20:31)
[2017-06-11] MEDS ORDERED: PATIENT'S HOME MEDICATION (Losartan Potassium [Losartan Potassium] 25 MG) PO SCH (09:00)
--- NOTE | 2017-06-11 10:04 | RAD ---
HISTORY: Cough Study: Single view of the chest Comparison: Date 08/29 Findings: The trachea is midline. The cardiac silhouette is unremarkable. Interstitial changes and mild bronc hial wall thickening are again noted within both lungs.. The aorta is partially calcified and tort uous IMPRESSION: 1. Cardiomegaly. 2. Interstitial changes and mild bronchial wall thickening. Reported By:
[2017-06-11] MEDS: NORVASC TAB 5 MG PO SCH (20:31)
[2017-06-11] MEDS: SNACK - Diabetic Appropriate PO SCH (20:36)
[2017-06-12] MEDS: NS 1000 ML 1,000 ML IV SCH ×2 (04:39→22:30)
[2017-06-12 06:08] LABS: BASOPHILS % (AUTO) 0.6 % (0.2-1.0); EOSINOPHILS # (AUTO) 0.3 x10^3/uL (0.0-0.2); EOSINOPHILS % (AUTO) 6.4 % (0.9-2.9); HEMATOCRIT 29.9 % (36.0-47.0); HEMOGLOBIN 9.5 g/dL (12.0-16.0); LYMPHOCYTES # (AUTO) 1.2 X10^3/uL (1.3-2.9); MEAN CORPUSCULAR HGB CONC 31.6 g/dL (33.0-35.0); MEAN CORPUSCULAR VOLUME 88.4 fL (80.0-100.0); MEAN PLATELET VOLUME 8.9 fL (7.4-11.0); MONOCYTES # (AUTO) 0.4 x10^3/uL (0.3-0.8); MONOCYTES % (AUTO) 9.1 % (0.0-13.0); NEUTROPHILS # (AUTO) 2.6 x10^3/uL (2.2-4.8); NEUTROPHILS % (AUTO) 57.9 % (42.0-75.0); PLATELET COUNT 195 X10^3/uL (150.0-450.0); RED BLOOD COUNT 3.38 X10^6/uL (3.5-5.4); RED CELL DISTRIBUTION WIDTH 15.1 % (11.6-16.5); WHITE BLOOD COUNT 4.5 X10^3/uL (3.6-10.0)
[2017-06-12 06:27] LABS: ALBUMIN 2.6 g/dL (3.4-5.0); CARBON DIOXIDE 28.7 mmol/L (21-32); COR CA(FOR HYPOALB) 10.1 mg/dL (8.5-10.1); CREATININE 3.08 mg/dL (0.55-1.02); TOTAL PROTEIN 6.2 g/dL (6.4-8.2)
[2017-06-12] MEDS: BUMEX TAB 1 MG PO SCH ×2 (08:31→20:45)
[2017-06-12] MEDS: COZAAR PO SCH (08:31)
[2017-06-12] MEDS: COREG TAB 12.5 MG PO SCH ×2 (08:31→20:46)
[2017-06-12] MEDS: PROTONIX INJ 40 MG VIAL IVP SCH (08:32)
[2017-06-12] MEDS: PLAVIX PO SCH (08:32)
[2017-06-12] MEDS: SYNTHROID 100 mcg TAB PO SCH (08:32)
[2017-06-12] MEDS: ZYLOPRIM PO SCH (08:32)
[2017-06-12] MEDS: LEVEMIR SC SCH (08:32)
[2017-06-12] MEDS: ROCEPHIN VIAL 1 GM 1 GM in NS 50 ML IV + SPIKE MINIBAG* 50 ML IV SCH (08:32)
[2017-06-12] MEDS ORDERED: DUONEB 0.5 MG/3 MG NEB PRN (09:42)
[2017-06-12] MEDS ORDERED: CONSULT PHARMACY - ANTIBIOTIC XX SCH (10:00)
[2017-06-12] MEDS: TYLENOL #3 TAB (W/CODEINE) PO PRN (10:14)
[2017-06-12] MEDS: INVANZ INJ 1 GM VIAL 0.5 GM in NS 50 ML IV 50 ML IV SCH (10:14)
[2017-06-12] MEDS: HumuLIN R SUBCUT PRN (11:34)
[2017-06-12] MEDS ORDERED: ZOFRAN TAB 4 MG PO PRN (16:38)
[2017-06-12] MEDS ORDERED: DUONEB 0.5 MG/3 MG IN PRN (16:38)
[2017-06-12] MEDS: ASPIRIN EC 81 MG PO SCH (18:10)
[2017-06-12] MEDS: TAB-A-VITE PO SCH (18:10)
[2017-06-12] MEDS: PROTONIX TAB 40 MG PO SCH (18:10)
[2017-06-12] MEDS: NORVASC TAB 5 MG PO SCH (20:46)
[2017-06-12] MEDS ORDERED: LIPITOR TAB 40 MG PO SCH (21:00)
[2017-06-12] MEDS: HumuLIN R SC PRN (21:19)
[2017-06-12] MEDS: SNACK - Diabetic Appropriate PO SCH (21:23)
[2017-06-13 05:48] LABS: ALBUMIN 2.6 g/dL (3.4-5.0); CALCIUM 9.1 mg/dL (8.5-10.1); CARBON DIOXIDE 27.4 mmol/L (21-32); COR CA(FOR HYPOALB) 10.2 mg/dL (8.5-10.1); CREATININE 2.98 mg/dL (0.55-1.02); TOTAL PROTEIN 6.1 g/dL (6.4-8.2)
[2017-06-13 05:50] LABS: BASOPHILS % (AUTO) 0.7 % (0.2-1.0); EOSINOPHILS # (AUTO) 0.3 x10^3/uL (0.0-0.2); HEMATOCRIT 28.5 % (36.0-47.0); HEMOGLOBIN 9.3 g/dL (12.0-16.0); LYMPHOCYTES # (AUTO) 1.3 X10^3/uL (1.3-2.9); LYMPHOCYTES % (AUTO) 27.9 % (21.0-51.0); MEAN CORPUSCULAR HEMOGLOBIN 28.6 pg (27.0-34.0); MEAN CORPUSCULAR HGB CONC 32.5 g/dL (33.0-35.0); MEAN CORPUSCULAR VOLUME 88.1 fL (80.0-100.0); MEAN PLATELET VOLUME 8.9 fL (7.4-11.0); MONOCYTES # (AUTO) 0.4 x10^3/uL (0.3-0.8); MONOCYTES % (AUTO) 8.6 % (0.0-13.0); NEUTROPHILS # (AUTO) 2.7 x10^3/uL (2.2-4.8); NEUTROPHILS % (AUTO) 56.8 % (42.0-75.0); PLATELET COUNT 190 X10^3/uL (150.0-450.0); RED BLOOD COUNT 3.23 X10^6/uL (3.5-5.4); RED CELL DISTRIBUTION WIDTH 14.7 % (11.6-16.5); WHITE BLOOD COUNT 4.8 X10^3/uL (3.6-10.0)
[2017-06-13] MEDS: NS 1000 ML 1,000 ML IV SCH (06:01)
[2017-06-13] MEDS: HumuLIN R SC PRN (06:04)
[2017-06-13] MEDS ORDERED: BUMEX TAB 1 MG PO SCH (09:00)
[2017-06-13] MEDS ORDERED: MIRALAX POWDER (1 DOSE 17GM) PO SCH (09:00)
[2017-06-13] MEDS ORDERED: COLACE CAP 100 MG PO SCH (09:00)
[2017-06-13] MEDS: ROCEPHIN VIAL 1 GM 1 GM in NS 50 ML IV + SPIKE MINIBAG* 50 ML IV SCH (09:44)
[2017-06-13] MEDS: INVANZ INJ 1 GM VIAL 0.5 GM in NS 50 ML IV 50 ML IV SCH (09:44)
[2017-06-13] MEDS: PLAVIX PO SCH (09:45)
[2017-06-13] MEDS: ZYLOPRIM PO SCH (09:45)
[2017-06-13] MEDS: ASPIRIN EC 81 MG PO SCH (09:45)
[2017-06-13] MEDS: PROTONIX TAB 40 MG PO SCH (09:46)
[2017-06-13] MEDS: TAB-A-VITE PO SCH (09:46)
[2017-06-13] MEDS: COREG TAB 12.5 MG PO SCH (09:46)
[2017-06-13] MEDS: SYNTHROID 100 mcg TAB PO SCH (09:46)
[2017-06-13] MEDS: COZAAR PO SCH (09:46)
[2017-06-13] MEDS: LEVEMIR SC SCH (09:47)
[2017-06-13] MEDS: BUMEX TAB 1 MG PO SCH (09:47)
[2017-06-13 10:07] VITALS: BP 125/62
== END 2017-06-13 12:48 | DRG 683 ==
LOC: MED/SURG 17:34
PROVIDERS: ADMIT Internal Medicine; ATTEND Internal Medicine
DX: N17.8 Other acute kidney failure (principal); N18.9 Chronic kidney disease, unspecified; R11.2 Nausea with vomiting, unspecified; R10.13 Epigastric pain; N39.0 Urinary tract infection, site not specified; B96.29 Other Escherichia coli [E. coli] as the cause of diseases classified elsewhere; R94.4 Abnormal results of kidney function studies; R26.89 Other abnormalities of gait and mobility; E86.0 Dehydration; M13.89 Other specified arthritis, multiple sites; E11.65 Type 2 diabetes mellitus with hyperglycemia; I12.9 Hypertensive chronic kidney disease with stage 1 through stage 4 chronic kidney disease, or unspecified chronic kidney disease; K21.9 Gastro-esophageal reflux disease without esophagitis; F03.90 Unspecified dementia, unspecified severity, without behavioral disturbance, psychotic disturbance, mood disturbance, and anxiety; I50.9 Heart failure, unspecified; E66.01 Morbid (severe) obesity due to excess calories; E03.8 Other specified hypothyroidism
CPT/HCPCS: 36415; 71010; 74000; 80053; 81001; 83735; 85025; 86677; 87086; 87088; 87186; 93005; 93010; 94760; 97535; A4222; C9113; 1956; J0696; J1335; J1815; J2405

== ENCOUNTER 2017-06-16 09:02 | Emergency (ER) | payer OTHER, MEDICAID ==
--- NOTE | 2017-06-16 09:39 | DR.AMS ---
HPI - Time Seen Time seen: 08:30 - Complaint Cheif Complaint Doctors Comments: History as stated. Patient referred to r/o intracranial abnormality Chief Complaint:: HUGO CALLED AND STAFF STATES " PT IS HAVING SLURRED SPEECH AND AMS".. - Source History Provided: [facility] - Mode of Arrival Mode of Arrival: Ambulatory - Timing Onset of Chief Complaint: 06/16/17 PMH - PMH Past Medical History: Yes Past Medical History: Arthritis, Diabetes, Hypertension, Renal Disease Past Surgical History: Yes Surgical History: Cholecystectomy, Ortho Surgery - Family History History of Family Medical Conditions: No - Social History Does patient currently use any type of tobacco product: No Have you used tobacco products in the last 12 months: No Type of Tobacco Use: None Does any household member use tobacco: No Alcohol Use: Rarely Do you use any recreational Drugs:: No Lives Where: [facility] - infectious screening In the last 2 months have you had wt loss of >10#?: NO Have you had fever, night sweats or hemotysis?: No Have you traveled outside the country in the last 6 months?: No Isolation: Standard ROS - Review of Systems Constitutional: No Symptoms Reported Eyes: No Symptoms Reported ENTM: No Symptoms Reported Respiratoy: No Symptoms Reported Cardiovascular: No Symptoms Reported Gastrointestinal/Abdominal: No Symptoms Reported Genitourinary: No Symptoms Reported Neurological: No Symptoms Reported Musculoskeletal: No Symptoms Reported Integumentary: No Symptoms Reported Hematologic/Lymphatic: No Symptoms Reported Endocrine: No Symptoms Reported Psychiatric: Other (AMS) All Other Systems: Reviewed and Negative PE - Vitals Vital Signs: Temp Pulse Pulse Resp BP BP BP 06/16/17 10:59 81 22 94/48 06/16/17 09:03 97.3 F L 86 18 118/58 06/13/17 08:00 125/62 125/62 06/11/17 16:00 127/62 Pulse Ox 06/16/17 10:59 96 06/16/17 09:03 92 L 06/13/17 08:00 06/11/17 16:00 - General Limitations: No Limitations General Appearance: Alert, In No Apparent Distress - Head Head Exam: Normal Inspection, Atraumatic Head Exam Physical: negative: Laceration, Abrasion, Contusion, Hematoma, Raccoon Eyes, Emerson's Sign, Tenderness of Temporal Artery, CSF Rhinorrhea, CSF Otorrhea, Other - Eyes Eye exam: Normal Appearance Pupils: Regular, Round: Bilateral - ENT ENT Exam: Normal Exam, Normal Oropharynx External Ear Exam: Normal External Inspection TM/Canal Exam: Bilateral Normal Mouth Exam: Normal Inspection Throat Exam: Normal Inspection - Neck Neck Exam: Normal Inspection, Full ROM - Chest Chest Inspection: Normal Inspection - Respiratory Respiratory Exam: Normal Lung Sounds Bilat Respiratory Exam: Bilateral Clear to Auscultation - Cardiovascular Cardiovascular Exam: Regular Rate, Normal Rhythm - Abdominal Exam Abdominal Exam: Normal Inspection Abdominal Tenderness: negative: RUQ, RLQ, LUQ, LLQ, Epigastrium, Suprapubic, Diffuse, Mild, Moderate, Severe, Other - Back Back Exam: Normal Inspection, Full ROM - Neurological Neurological Exam: Alert, Oriented X3, CN II-XII Intact Course - Reevaluation 1st: Unchanged - Consultation Called: 11:00 (Agreed to admit for further evaluation) ROR - Labs Reviewed Laboratory Results Reviewed?: Yes (Bun/Cr elevated, potassium upper limits of nl ) Result Diagrams: 06/16/17 10:05 06/16/17 10:05 Laboratory: WBC 5.6 X10^3/uL (3.6-10.0) 06/16/17 10:05 RBC 3.43 X10^6/uL (3.5-5.4) L 06/16/17 10:05 Hgb 9.7 g/dL (12.0-16.0) L 06/16/17 10:05 Hct 30.3 % (36.0-47.0) L 06/16/17 10:05 MCV 88.2 fL (80.0-100.0) 06/16/17 10:05 MCH 28.2 pg (27.0-34.0) 06/16/17 10:05 MCHC 31.9 g/dL (33.0-35.0) L 06/16/17 10:05 RDW 14.7 % (11.6-16.5) 06/16/17 10:05 Plt Count 185 X10^3/uL (150.0-450.0) 06/16/17 10:05 MPV 8.7 fL (7.4-11.0) 06/16/17 10:05 Neut % 72.7 % (42.0-75.0) 06/16/17 10:05 Lymph % 10.9 % (21.0-51.0) L 06/16/17 10:05 Wallace % 9.3 % (0.0-13.0) 06/16/17 10:05 Eos % 6.5 % (0.9-2.9) H 06/16/17 10:05 Baso % 0.6 % (0.2-1.0) 06/16/17 10:05 Neut # 4.1 x10^3/uL (2.2-4.8) 06/16/17 10:05 Lymph # 0.6 X10^3/uL (1.3-2.9) L 06/16/17 10:05 Wallace # 0.5 x10^3/uL (0.3-0.8) 06/16/17 10:05 Eos # 0.4 x10^3/uL (0.0-0.2) H 06/16/17 10:05 Baso # 0.0 X10^3/uL (0.0-0.1) 06/16/17 10:05 Absolute Nucleated RBC 0.2 /100WBC 06/16/17 10:05 Sodium 136 mmol/L (136-145) 06/16/17 10:05 Corrected Sodium TNP 06/16/17 10:05 Potassium 5.1 mmol/L (3.5-5.1) 06/16/17 10:05 Chloride 101 mmol/L (98-107) 06/16/17 10:05 Carbon Dioxide 26.8 mmol/L (21-32) 06/16/17 10:05 BUN 82 mg/dL (7-18) H 06/16/17 10:05 Creatinine 4.54 mg/dL (0.55-1.02) H 06/16/17 10:05 Est GFR (MDRD) Af Amer 12 (>60) L 06/16/17 10:05 Est GFR (MDRD) Non-Af 10 (>60) L 06/16/17 10:05 Glucose 77 mg/dL (65-99) 06/16/17 10:05 Calcium 8.8 mg/dL (8.5-10.1) 06/16/17 10:05 Corrected Calcium 9.7 mg/dL (8.5-10.1) 06/16/17 10:05 Total Bilirubin 0.40 mg/dL (0.2-1.0) 06/16/17 10:05 AST 20 Units/L (15-37) 06/16/17 10:05 ALT 15 Units/L (12-78) 06/16/17 10:05 Alkaline Phosphatase 94 Units/L (46-116) 06/16/17 10:05 Total Protein 6.8 g/dL (6.4-8.2) 06/16/17 10:05 Albumin 2.9 g/dL (3.4-5.0) L 06/16/17 10:05 Globulin 3.9 g/dL (2.5-4.5) 06/16/17 10:05 Albumin/Globulin Ratio 0.7 Ratio (1.1-2.1) L 06/16/17 10:05 - XRAY XRAY Interpreted by: Self - Diagnosis Discharge Problem: Dehydration Altered mental status, unspecified Qualifiers: Altered mental status type: unspecified Qualified Code(s): R41.82 - Altered mental status, unspecified - Discharge Plan Condition: Stable - Follow ups/Referrals Follow ups/Referrals: NFD,None [Primary Care Provider] - 3 days - Instructions
[2017-06-16 09:45] VITALS: BMI 32.3
--- NOTE | 2017-06-16 10:13 | CT ---
HISTORY: Altered mental status, right-sided facial drooping Study: CT brain without contrast Comparison: 11/22/2016 Technique: Multiple axial images of the brain were obtained from the skull base to the vertex without administra tion of IV contrast. Dose reduction techniques including Automated Exposure Control (AEC) and adjust ment of mA and kV were utilized. Findings: There is moderate chronic atrophy and nonspecific white matter hypoattenuation likely related to micr ovascular ischemic changes. Chronic mineralization is seen in the ventral bessy. No evidence of acute hemorrhage, midline shift, mass effect or abnormal extra-axial fluid collection. The ventricular sys tem is symmetric and nondilated. The soft tissues and osseous structures are unremarkable. The visua lized paranasal sinuses are clear. IMPRESSION: 1. Stable chronic volume loss and microvascular ischemic changes. No evidence of acute intracranial a bnormality. Reported By:
[2017-06-16 10:17] LABS: BASOPHILS % (AUTO) 0.6 % (0.2-1.0); EOSINOPHILS # (AUTO) 0.4 x10^3/uL (0.0-0.2); EOSINOPHILS % (AUTO) 6.5 % (0.9-2.9); HEMATOCRIT 30.3 % (36.0-47.0); HEMOGLOBIN 9.7 g/dL (12.0-16.0); LYMPHOCYTES # (AUTO) 0.6 X10^3/uL (1.3-2.9); LYMPHOCYTES % (AUTO) 10.9 % (21.0-51.0); MEAN CORPUSCULAR HEMOGLOBIN 28.2 pg (27.0-34.0); MEAN CORPUSCULAR HGB CONC 31.9 g/dL (33.0-35.0); MEAN CORPUSCULAR VOLUME 88.2 fL (80.0-100.0); MEAN PLATELET VOLUME 8.7 fL (7.4-11.0); MONOCYTES # (AUTO) 0.5 x10^3/uL (0.3-0.8); MONOCYTES % (AUTO) 9.3 % (0.0-13.0); NEUTROPHILS # (AUTO) 4.1 x10^3/uL (2.2-4.8); NEUTROPHILS % (AUTO) 72.7 % (42.0-75.0); PLATELET COUNT 185 X10^3/uL (150.0-450.0); RED BLOOD COUNT 3.43 X10^6/uL (3.5-5.4); RED CELL DISTRIBUTION WIDTH 14.7 % (11.6-16.5); WHITE BLOOD COUNT 5.6 X10^3/uL (3.6-10.0)
[2017-06-16 10:27] LABS: ALANINE AMINOTRANSFERASE 15 Units/L (12-78); ALBUMIN 2.9 g/dL (3.4-5.0); ALKALINE PHOSPHATASE 94 Units/L (46-116); ASPARTATE AMINO TRANSFERASE 20 Units/L (15-37); BLOOD UREA NITROGEN 82 mg/dL (7-18); CALCIUM 8.8 mg/dL (8.5-10.1); CARBON DIOXIDE 26.8 mmol/L (21-32); CHLORIDE 101 mmol/L (98-107); COR CA(FOR HYPOALB) 9.7 mg/dL (8.5-10.1); CREATININE 4.54 mg/dL (0.55-1.02); SODIUM 136 mmol/L (136-145); TOTAL PROTEIN 6.8 g/dL (6.4-8.2); eGFR BLACK RACES 12 (>60); eGFR NON BLACK RACES 10 (>60)
[2017-06-16] MEDS ORDERED: DUONEB 0.5 MG/3 MG ONE (10:43)
[2017-06-16] MEDS ORDERED: DUONEB 0.5 MG/3 MG NEB ONE ×2 (10:58→18:00)
[2017-06-16] MEDS ORDERED: NS 1000 ML 1,000 ML ONE (11:04)
[2017-06-16] MEDS ORDERED: ZOFRAN TAB 4 MG PO PRN (11:24)
[2017-06-16] MEDS ORDERED: HumuLIN R SC PRN (11:24)
[2017-06-16] MEDS ORDERED: DUONEB 0.5 MG/3 MG IN PRN (11:24)
[2017-06-16] MEDS ORDERED: TYLENOL #3 TAB (W/CODEINE) PO PRN ×2 (11:24→17:55)
[2017-06-16] MEDS ORDERED: DUONEB 0.5 MG/3 MG NEB PRN ×2 (12:00→17:53)
[2017-06-16] MEDS ORDERED: NS 1000 ML 1,000 ML IV SCH (12:00)
--- NOTE | 2017-06-16 13:31 | RAD ---
HISTORY: Congestive heart failure Study: Single view of the chest. Comparison: 06/11/2017 Findings: Cardiomegaly and pulmonary edema. No focal consolidations, pleural effusions or pneumothorax. Osseous structures demonstrate no acute abnormality. IMPRESSION: 1. Cardiomegaly and pulmonary edema Reported By:
[2017-06-16] MEDS ORDERED: LASIX IVP ONE (13:53)
[2017-06-16 15:12] LABS: BILIRUBIN,URINE NEGATIVE (NEGATIVE); BLOOD/HEMOGLOBIN,URINE NEGATIVE (NEGATIVE); GLUCOSE, URINE NEGATIVE (NEGATIVE); KETONES,URINE NEGATIVE (NEGATIVE); LEUKOCYTE ESTERASE ,URINE NEGATIVE (NEGATIVE); NITRITES,URINE NEGATIVE (NEGATIVE); PROTEIN,URINE NEGATIVE (NEGATIVE); UROBILINOGEN,URINE NORMAL (NORMAL)
[2017-06-16 15:19] LABS: APPEARANCE,URINE CLEAR (CLEAR); BACTERIA,URINE NEGATIVE /HPF (NEGATIVE); COLOR,URINE YELLOW (YELLOW); RBC,URINE NONE SEEN /HPF (NEGATIVE); SQUAMOUS EPITHELIAL CELL,UR RARE /HPF (NEGATIVE)
[2017-06-16] MEDS ORDERED: BACTRIM DS TAB PO SCH (21:00)
[2017-06-16] MEDS: NS 1000 ML 1,000 ML IV SCH (21:22)
[2017-06-16] MEDS: INVANZ INJ 1 GM VIAL 0.5 GM in NS 50 ML IV 50 ML IV SCH (21:22)
[2017-06-16] MEDS: COREG TAB 12.5 MG PO SCH (21:22)
[2017-06-16] MEDS: LIPITOR TAB 40 MG PO SCH (21:23)
[2017-06-16] MEDS: LEVEMIR SC SCH (21:23)
[2017-06-17 05:20] LABS: BASOPHILS % (AUTO) 0.6 % (0.2-1.0); EOSINOPHILS # (AUTO) 0.4 x10^3/uL (0.0-0.2); EOSINOPHILS % (AUTO) 8.7 % (0.9-2.9); HEMATOCRIT 28.7 % (36.0-47.0); HEMOGLOBIN 9.1 g/dL (12.0-16.0); LYMPHOCYTES # (AUTO) 0.5 X10^3/uL (1.3-2.9); LYMPHOCYTES % (AUTO) 11.7 % (21.0-51.0); MEAN CORPUSCULAR HEMOGLOBIN 28.5 pg (27.0-34.0); MEAN CORPUSCULAR HGB CONC 31.9 g/dL (33.0-35.0); MEAN CORPUSCULAR VOLUME 89.6 fL (80.0-100.0); MONOCYTES # (AUTO) 0.5 x10^3/uL (0.3-0.8); MONOCYTES % (AUTO) 10.9 % (0.0-13.0); NEUTROPHILS % (AUTO) 68.1 % (42.0-75.0); PLATELET COUNT 161 X10^3/uL (150.0-450.0); RED CELL DISTRIBUTION WIDTH 14.6 % (11.6-16.5); WHITE BLOOD COUNT 4.4 X10^3/uL (3.6-10.0)
[2017-06-17] MEDS: NS 1000 ML 1,000 ML IV SCH ×3 (05:34→23:08)
[2017-06-17 05:35] LABS: ALBUMIN 2.6 g/dL (3.4-5.0); CALCIUM 8.6 mg/dL (8.5-10.1); CARBON DIOXIDE 25.6 mmol/L (21-32); COR CA(FOR HYPOALB) 9.7 mg/dL (8.5-10.1); CREATININE 4.68 mg/dL (0.55-1.02); TOTAL PROTEIN 6.3 g/dL (6.4-8.2)
[2017-06-17] MEDS: SNACK - Diabetic Appropriate PO SCH ×2 (08:34→21:16)
[2017-06-17] MEDS: MIRALAX POWDER (1 DOSE 17GM) PO SCH (08:35)
[2017-06-17] MEDS: COZAAR PO SCH (08:35)
[2017-06-17] MEDS: TAB-A-VITE PO SCH (08:35)
[2017-06-17] MEDS: INVANZ INJ 1 GM VIAL 0.5 GM in NS 50 ML IV 50 ML IV SCH (08:35)
[2017-06-17] MEDS: ZYLOPRIM PO SCH (08:36)
[2017-06-17] MEDS: BUMEX TAB 1 MG PO SCH (08:36)
[2017-06-17] MEDS: PROTONIX TAB 40 MG PO SCH (08:36)
[2017-06-17] MEDS: ASPIRIN 81 MG CHEWTAB PO SCH (08:36)
[2017-06-17] MEDS: SYNTHROID 100 mcg TAB PO SCH (08:36)
[2017-06-17] MEDS: COLACE CAP 100 MG PO SCH (08:36)
[2017-06-17] MEDS: COREG TAB 12.5 MG PO SCH ×2 (08:37→21:11)
[2017-06-17] MEDS: LEVEMIR SC SCH ×2 (08:49→21:15)
[2017-06-17] MEDS: PLAVIX PO SCH (08:50)
[2017-06-17] MEDS ORDERED: PATIENT'S HOME MEDICATION (Aspirin [Aspirin] 81 MG) PO SCH (09:00)
[2017-06-17] MEDS ORDERED: PATIENT'S HOME MEDICATION (Losartan Potassium [Losartan Potassium] 25 MG) PO SCH (09:00)
[2017-06-17] MEDS ORDERED: BUMETANIDE 2 MG PO SCH (09:00)
[2017-06-17] MEDS ORDERED: MULTIPLE VITAMIN PO SCH (09:00)
[2017-06-17 17:24] LABS: BLOOD UREA NITROGEN 81 mg/dL (7-18); CALCIUM 8.7 mg/dL (8.5-10.1); CHLORIDE 102 mmol/L (98-107); CREATININE 4.73 mg/dL (0.55-1.02); SODIUM 137 mmol/L (136-145); eGFR BLACK RACES 11 (>60); eGFR NON BLACK RACES 9 (>60)
[2017-06-17] MEDS ORDERED: NORVASC TAB 5 MG PO SCH (21:00)
[2017-06-17] MEDS: LIPITOR TAB 40 MG PO SCH (21:11)
[2017-06-18 05:20] LABS: BASOPHILS % (AUTO) 0.5 % (0.2-1.0); EOSINOPHILS # (AUTO) 0.4 x10^3/uL (0.0-0.2); EOSINOPHILS % (AUTO) 9.2 % (0.9-2.9); HEMATOCRIT 30.7 % (36.0-47.0); HEMOGLOBIN 9.7 g/dL (12.0-16.0); LYMPHOCYTES # (AUTO) 0.7 X10^3/uL (1.3-2.9); LYMPHOCYTES % (AUTO) 18.3 % (21.0-51.0); MEAN CORPUSCULAR HEMOGLOBIN 28.2 pg (27.0-34.0); MEAN CORPUSCULAR HGB CONC 31.7 g/dL (33.0-35.0); MEAN CORPUSCULAR VOLUME 88.9 fL (80.0-100.0); MEAN PLATELET VOLUME 8.7 fL (7.4-11.0); MONOCYTES # (AUTO) 0.4 x10^3/uL (0.3-0.8); MONOCYTES % (AUTO) 9.9 % (0.0-13.0); NEUTROPHILS # (AUTO) 2.4 x10^3/uL (2.2-4.8); NEUTROPHILS % (AUTO) 62.1 % (42.0-75.0); PLATELET COUNT 181 X10^3/uL (150.0-450.0); RED BLOOD COUNT 3.45 X10^6/uL (3.5-5.4); WHITE BLOOD COUNT 3.8 X10^3/uL (3.6-10.0)
[2017-06-18] MEDS: NS 1000 ML 1,000 ML IV SCH (05:35)
[2017-06-18 05:51] LABS: ALBUMIN 2.7 g/dL (3.4-5.0); CALCIUM 8.9 mg/dL (8.5-10.1); CARBON DIOXIDE 24.5 mmol/L (21-32); COR CA(FOR HYPOALB) 9.9 mg/dL (8.5-10.1); CREATININE 4.46 mg/dL (0.55-1.02); TOTAL PROTEIN 6.4 g/dL (6.4-8.2)
[2017-06-18] MEDS: SYNTHROID 100 mcg TAB PO SCH (08:39)
[2017-06-18] MEDS: BUMEX TAB 1 MG PO SCH (08:39)
[2017-06-18] MEDS: PLAVIX PO SCH (08:40)
[2017-06-18] MEDS: COLACE CAP 100 MG PO SCH (08:40)
[2017-06-18] MEDS: ZYLOPRIM PO SCH (08:40)
[2017-06-18] MEDS: ASPIRIN 81 MG CHEWTAB PO SCH (08:40)
[2017-06-18] MEDS: COREG TAB 12.5 MG PO SCH (08:40)
[2017-06-18] MEDS: PROTONIX TAB 40 MG PO SCH (08:41)
[2017-06-18] MEDS: COZAAR PO SCH (08:41)
[2017-06-18] MEDS: TAB-A-VITE PO SCH (08:41)
[2017-06-18] MEDS: MIRALAX POWDER (1 DOSE 17GM) PO SCH (08:41)
[2017-06-18] MEDS: INVANZ INJ 1 GM VIAL 0.5 GM in NS 50 ML IV 50 ML IV SCH (08:41)
[2017-06-18] MEDS: LEVEMIR SC SCH (08:43)
--- NOTE | 2017-06-18 09:29 | RAD ---
HISTORY: Shortness of breath Study: AP chest Comparison: June 16, 2017 Findings: The heart is enlarged. No congestive heart failure is noted. No acute alveolar infiltrates or pleural effusions are identified. The bony thorax is unremarkable. IMPRESSION: Cardiomegaly without congestive heart failure Lungs clear Reported By:
[2017-06-18 10:21] LABS: ABG ALLEN TEST POS; ABG BASE EXCESS 1.3 mmol/L (-2.0-2.0); ABG HCO3 25.9 mmol/L (22-26)
--- NOTE | 2017-06-18 12:32 | CT ---
HISTORY: Altered mental status Study: CT brain without contrast Comparison: June 16, 2017 Technique: Multiple axial images of the brain were obtained from the skull base to the vertex withou t administration of IV contrast. AEC was utilized. Findings: No acute intraparenchymal hemorrhage or mass can be identified. No extra-axial fluid collections are seen. No alteration in the attenuation of the brain parenchyma can be identified to suggest acute o r subacute ischemic change. The ventricular system is symmetric and nondilated. There is chronic pe riventricular white matter disease observed and age-appropriate generalized atrophy. Extracranial st ructures are grossly unremarkable. IMPRESSION: 1. No acute intracranial process can be identified. 2. Chronic periventricular white matter disease likely on the basis of small vessel ischemic change. 3. Age-appropriate atrophic changes are seen. Reported By:
[2017-06-18 12:45] VITALS: BP 152/73
== END 2017-06-18 12:57 | disposition short-term general hospital (02) ==
LOC: ER 09:34 → MED/SURG 11:16
PROVIDERS: ADMIT Internal Medicine; ATTEND Internal Medicine
DX: E86.0 Dehydration (principal); R47.81 Slurred speech; R41.82 Altered mental status, unspecified; I12.9 Hypertensive chronic kidney disease with stage 1 through stage 4 chronic kidney disease, or unspecified chronic kidney disease; E11.65 Type 2 diabetes mellitus with hyperglycemia; I51.7 Cardiomegaly; N18.9 Chronic kidney disease, unspecified; N17.8 Other acute kidney failure; N39.0 Urinary tract infection, site not specified; I50.9 Heart failure, unspecified; J44.9 Chronic obstructive pulmonary disease, unspecified; M13.89 Other specified arthritis, multiple sites; D64.89 Other specified anemias; R94.4 Abnormal results of kidney function studies; E03.8 Other specified hypothyroidism
CPT/HCPCS: 36415; 36600; 70450; 71010; 80048; 80053; 81001; 82803; 85025; 94640; 94760; 96365; 96374; 99284; A4216; A4222; 1956; G0378; J1335; J1940; J7620

== ENCOUNTER → 2017-09-24 | Outpatient (CLI) | payer OTHER, MEDICAID ==
[2017-08-21 02:24] VITALS: BP 137/61
--- NOTE | 2017-09-26 10:35 | US ---
HISTORY: 82-year-old female with a palpable hard knot within the midline of the anterior neck. Study: Limited ultrasound of the anterior neck. Comparison: None. Technique: Multiple grayscale and color Doppler images were obtained of the anterior neck in the rené on of interest. Findings: Within the subcutaneous tissues of the anterior neck there is an 8 x 5 x 9 mm cystic lesion demonstra ting posterior acoustic enhancement without vascularity that is well-circumscribed and mildly complex . No other abnormality noted. IMPRESSION: Cystic lesion within the anterior neck measuring up to approximately 1 cm without vascularity and mil d complexity. Differential considerations include, but are not limited to, focal folliculitis or lymp h node. Consider percutaneous biopsy for definitive diagnosis. Reported By:
== END ==
LOC: RAD 09:03
PROVIDERS: ATTEND Internal Medicine
DX: R22.1 Localized swelling, mass and lump, neck (principal)
CPT/HCPCS: 76536

== ENCOUNTER → 2017-12-26 | Outpatient (CLI) | payer OTHER, MEDICAID ==
[2017-08-21 02:24] VITALS: BP 137/61
--- NOTE | 2017-12-26 16:27 | RAD ---
Examination: Right ankle, three views History: Pain in lower leg Findings: There is an intramedullary laurie in the distal half of the right fibula, as fixation for a di stal fibular fracture. There are transverse threaded surgical screws across the distal tibial-fibular syndesmosis. There is significant narrowing and deformity of the tibiotalar joint with lateral displ acement of the talus, widening the medial clear space. Significant subchondral sclerosis involves the dome of the talus. Impression: Status post ORIF of distal fibular fracture. 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 Follow-up sue ging with MR may provide additional diagnosis if clinically indicated. Reported By:
== END ==
LOC: RAD 15:10
PROVIDERS: ATTEND Internal Medicine
DX: M25.571 Pain in right ankle and joints of right foot (principal); Z98.890 Other specified postprocedural states
CPT/HCPCS: 73610

== ENCOUNTER → 2018-02-27 | Outpatient (CLI) | payer OTHER, MEDICAID ==
[2017-08-21 02:24] VITALS: BP 137/61
--- NOTE | 2018-02-27 13:07 | US ---
HISTORY: Heel pain Study: Heel ultrasound: Multiplanar ultrasonographic examination of the heel pad was performed. Comparison: None Findings: There is a moderate edema within the heel pad. No other abnormalities are noted IMPRESSION: 1. There is soft tissue edema within the heel pad. Reported By:
--- NOTE | 2018-02-27 13:08 | US ---
HISTORY: Heel pain. Study: Left heel ultrasound: Multiplanar ultrasonographic examination of the heel pad was performed . Comparison: None Findings: There is soft tissue edema within the heel pad. No other abnormalities are noted. IMPRESSION: 1. There is soft tissue edema within the heel pad. Reported By:
== END | disposition home or self-care (01) ==
LOC: RAD 10:00
PROVIDERS: ATTEND Internal Medicine
DX: L89.621 Pressure ulcer of left heel, stage 1 (principal); L89.611 Pressure ulcer of right heel, stage 1; M79.89 Other specified soft tissue disorders
CPT/HCPCS: 76881

== ENCOUNTER 2018-05-11 10:01 | Inpatient (IN) ==
[2018-05-11 13:55] LABS: BASOPHILS % (AUTO) 0.6 % (0.2-1.0); EOSINOPHILS # (AUTO) 0.2 x10^3/uL (0.0-0.2); HEMATOCRIT 39.4 % (36.0-47.0); HEMOGLOBIN 12.5 g/dL (12.0-16.0); LYMPHOCYTES # (AUTO) 1.1 X10^3/uL (1.3-2.9); LYMPHOCYTES % (AUTO) 22.3 % (21.0-51.0); MEAN CORPUSCULAR HEMOGLOBIN 27.1 pg (27.0-34.0); MEAN CORPUSCULAR HGB CONC 31.7 g/dL (33.0-35.0); MEAN CORPUSCULAR VOLUME 85.4 fL (80.0-100.0); MEAN PLATELET VOLUME 9.1 fL (7.4-11.0); MONOCYTES # (AUTO) 0.3 x10^3/uL (0.3-0.8); MONOCYTES % (AUTO) 6.5 % (0.0-13.0); NEUTROPHILS # (AUTO) 3.4 x10^3/uL (2.2-4.8); NEUTROPHILS % (AUTO) 66.6 % (42.0-75.0); PLATELET COUNT 178 X10^3/uL (150.0-450.0); RED BLOOD COUNT 4.61 X10^6/uL (3.5-5.4); RED CELL DISTRIBUTION WIDTH 16.9 % (11.6-16.5); WHITE BLOOD COUNT 5.2 X10^3/uL (3.6-10.0)
[2018-05-11 14:14] LABS: ALBUMIN 2.7 g/dL (3.4-5.0); CALCIUM 9.4 mg/dL (8.5-10.1); CARBON DIOXIDE 29.3 mmol/L (21-32); COR CA(FOR HYPOALB) 10.4 mg/dL (8.5-10.1); CREATININE 3.06 mg/dL (0.55-1.02); TOTAL PROTEIN 6.9 g/dL (6.4-8.2)
[2018-05-11] MEDS: NS 1000 ML 1,000 ML IV SCH (15:30)
[2018-05-11] MEDS: ROCEPHIN VIAL 1 GRAM 1 G in NS 100 ML IV + SPIKE MINIBAG* 100 ML IV SCH (15:30)
[2018-05-11 15:39] LABS: BILIRUBIN,URINE NEGATIVE (NEGATIVE); BLOOD/HEMOGLOBIN,URINE 1+ (NEGATIVE); GLUCOSE, URINE NEGATIVE (NEGATIVE); KETONES,URINE NEGATIVE (NEGATIVE); LEUKOCYTE ESTERASE ,URINE 3+ (NEGATIVE); NITRITES,URINE NEGATIVE (NEGATIVE); PROTEIN,URINE 2+ (NEGATIVE); UROBILINOGEN,URINE NORMAL (NORMAL)
[2018-05-11 15:49] LABS: APPEARANCE,URINE HAZY (CLEAR); COLOR,URINE YELLOW (YELLOW)
[2018-05-11 15:50] LABS: BACTERIA,URINE 3+ /HPF (NEGATIVE); MUCUS,URINE FEW /HPF (NEGATIVE); SQUAMOUS EPITHELIAL CELL,UR FEW /HPF (NEGATIVE)
--- NOTE | 2018-05-11 16:42 | RAD ---
HISTORY: AMS, CHF Study: Single view chest Comparison: 06/18/2017 Findings: Single portable view is submitted. Lung volumes are reduced. Mild chronic interstitial prominence is present without infiltrate, effusion or pneumothorax identified. Cardiac silhouette is within normal limits. There are degenerative changes of the bony thorax. IMPRESSION: 1. Negative portable chest radiograph. Reported By:
--- NOTE | 2018-05-11 17:02 | CT ---
HISTORY: Altered mental status Study: CT brain without contrast Comparison: June 16, 2017 Technique: Multiple axial images of the brain were obtained from the skull base to the vertex without administra tion of IV contrast. Findings: No acute intraparenchymal hemorrhage or mass can be identified. No extra-axial fluid collections are seen. No alteration in the attenuation of the brain parenchyma can be identified to suggest acute o r subacute ischemic change. The ventricles, sulci, and cisterns demonstrate an appearance consistent with a [id number] degree of generalized atrophy. Patchy areas of decreased attenuation within the periventricular, subcortical, and subinsular white matter suggest changes chronic small vessel is chemic disease. Calcifications are again noted within the bessy. If symptoms or clinical concern pers ist recommend continued follow-up for further evaluation. IMPRESSION: No acute intracranial process can be identified. Mild to moderate generalized atrophy with findings consistent with changes of chronic small vessel is chemic disease. Reported By:
--- NOTE | 2018-05-11 18:16 | DR.H&P ---
H&P - History & Physical for Day of: H&P Date: 05/11/18 - Chief Complaint Chief Complaint: AMS PER NURSING STAFF AT [facility] / [facility] - History of Present Illness History of Present Illness: 83 BF DIRECT ADMIT FROM [facility] / [facility] AFTER NURSING STAFF REPORTS PT HAD INCREASED CONFUSION, NOT ACTING HERSELF. PT HAD UA WITH UTI ONE DAY AGO. PT HAS PMH OF CHF, CRF, HTN, OA, MO, DM. PT ADMITTED FOR TREATMENT AND EVALUATION OF AMS. CT HEAD ON ADMISSION, BLOOD SUGAR CONTROL, ADMISSION LABS, IV ATBX - Past Medical History Past Medical History: Arthritis, Diabetes, Hypertension, Renal Disease - Past Surgical History Surgical History: Cholecystectomy, Ortho Surgery, Other - Social History Does patient currently use any type of tobacco product: No Have you used tobacco products in the last 12 months: No Type of Tobacco Use: None Does any household member use tobacco: No Alcohol Use: None Drug Use: Prescription Drugs - Medications Home Medications: tramadol Adverse Reaction (Verified 04/28/17 14:27) CONTINUE taking the following medications amino acids-protein hydrolys [Pro-Stat AWC] 1 pkg PO BID 05/11/18 [History] epoetin emiliano [Procrit] 1 unit SUB-Q QMONTH 05/11/18 [History] gabapentin 1 cap PO Q8H PRN 05/11/18 [History] iron-folic acid-mv, min cmb#15 [Hemocyte-Plus] 1 tab PO DAILY 05/11/18 [History] metoclopramide HCl [Reglan] 1 tab PO AC 05/11/18 [History] omeprazole 1 cap PO DAILY 05/11/18 [History] ranitidine HCl [Zantac] 1 tab PO HS 05/11/18 [History] - Review of Systems Constitutional: Weakness Eyes: No Symptoms Reported ENT: No Symptoms Reported Respiratory: No Symptoms Reported Cardiovascular: No Symptoms Reported, Edema Gastrointestinal: Nausea Genitourinary: No Symptoms Reported Musculoskeletal: Back Pain, Leg Pain Skin: No Symptoms Reported Neurological: Weakness, Confusion - Physical Exam Vital Signs: Temperature 98 F Pulse Rate [Left Radial] 73 Respiratory Rate 20 Blood Pressure [Right Arm] 129/66 Blood Pressure [Left Arm] 154/70 Blood Pressure 137/61 O2 Sat by Pulse Oximetry 96 Oriented: Time, Person, Place Eyes: Normal Ear: Normal Nose: Normal Throat: Dry Respiratory: RLL Diminished, LLL Diminished Cardiovascular: Normal, Edema : Normal Auscultation: Bowel Sounds: Normal Palpation: Normal Tenderness: Normal Skin: Normal Musculoskeletal: Right, Left, Knee, Ankle, Foot Psychiatric: Normal Mood Description: Calm Speech Pattern: Appropriate - Assessment/Plan (1) Altered mental status, unspecified Status: Acute Plan: ADMIT, CT HEAD ON ADMISSION. CXR, UA/UC BLOOD CULTURES. CBC CMP, BS CONTROL, I & OS, EKG ON ADMISSION. SSI, SUPPORTIVE CARE, VERIFY HOME MEDS. IV ATBX FOR UTI (2) UTI (urinary tract infection) Status: Acute (3) Acute on chronic renal failure Status: Acute (4) CHF (congestive heart failure) Status: Chronic (5) Hypertension Status: Chronic (6) Hypothyroidism Status: Chronic (7) Diabetes mellitus, type II Status: Chronic (8) Dementia Status: Chronic - Allergies Allergies/Adverse Reactions: Allergies Allergy/AdvReac Type Severity Reaction Status Date / Time tramadol AdvReac Verified 04/28/17 14:27
[2018-05-11] MEDS: SNACK - Diabetic Appropriate PO SCH (20:30)
[2018-05-11] MEDS: LIPITOR TAB 40 MG PO SCH (21:36)
[2018-05-11] MEDS: COREG TAB 12.5 MG PO SCH (21:37)
[2018-05-12 06:02] LABS: BASOPHILS % (AUTO) 0.9 % (0.2-1.0); EOSINOPHILS # (AUTO) 0.2 x10^3/uL (0.0-0.2); EOSINOPHILS % (AUTO) 3.4 % (0.9-2.9); HEMATOCRIT 38.8 % (36.0-47.0); HEMOGLOBIN 12.4 g/dL (12.0-16.0); LYMPHOCYTES # (AUTO) 0.6 X10^3/uL (1.3-2.9); LYMPHOCYTES % (AUTO) 10.6 % (21.0-51.0); MEAN CORPUSCULAR HEMOGLOBIN 26.8 pg (27.0-34.0); MEAN CORPUSCULAR VOLUME 83.9 fL (80.0-100.0); MEAN PLATELET VOLUME 8.9 fL (7.4-11.0); MONOCYTES # (AUTO) 0.3 x10^3/uL (0.3-0.8); MONOCYTES % (AUTO) 5.7 % (0.0-13.0); NEUTROPHILS # (AUTO) 4.4 x10^3/uL (2.2-4.8); NEUTROPHILS % (AUTO) 79.4 % (42.0-75.0); PLATELET COUNT 183 X10^3/uL (150.0-450.0); RED BLOOD COUNT 4.63 X10^6/uL (3.5-5.4); RED CELL DISTRIBUTION WIDTH 16.8 % (11.6-16.5); WHITE BLOOD COUNT 5.5 X10^3/uL (3.6-10.0)
[2018-05-12 06:29] LABS: ALANINE AMINOTRANSFERASE 12 Units/L (12-78); ALBUMIN 2.7 g/dL (3.4-5.0); ALKALINE PHOSPHATASE 118 Units/L (46-116); ASPARTATE AMINO TRANSFERASE 18 Units/L (15-37); BLOOD UREA NITROGEN 92 mg/dL (7-18); CALCIUM 9.4 mg/dL (8.5-10.1); CARBON DIOXIDE 25.2 mmol/L (21-32); CHLORIDE 103 mmol/L (98-107); COR CA(FOR HYPOALB) 10.4 mg/dL (8.5-10.1); CREATININE 2.89 mg/dL (0.55-1.02); SODIUM 136 mmol/L (136-145); TOTAL PROTEIN 6.8 g/dL (6.4-8.2); eGFR NON BLACK RACES 16 (>60)
[2018-05-12 07:22] VITALS: BMI 42.5
[2018-05-12] MEDS: LEVEMIR SC SCH (08:21)
[2018-05-12] MEDS: ROCEPHIN VIAL 1 GRAM 1 G in NS 100 ML IV + SPIKE MINIBAG* 100 ML IV SCH (08:22)
[2018-05-12] MEDS: PLAVIX PO SCH (08:24)
[2018-05-12] MEDS: SYNTHROID 100 mcg TAB PO SCH (08:25)
[2018-05-12] MEDS: ASPIRIN EC 81 MG PO SCH (08:26)
[2018-05-12] MEDS: PROTONIX TAB 40 MG PO SCH (08:27)
[2018-05-12] MEDS: COREG TAB 12.5 MG PO SCH ×2 (08:27→21:51)
[2018-05-12] MEDS: TYLENOL #3 TAB (W/CODEINE) PO PRN (10:35)
[2018-05-12] MEDS ORDERED: CONSULT PHARMACY - ANTIBIOTIC XX SCH (11:00)
[2018-05-12] MEDS: INVANZ INJ 1 GM VIAL 0.5 GM in NS 100 ML IV 100 ML IV SCH (11:43)
[2018-05-12] MEDS: HumuLIN R SUBCUT PRN ×3 (12:31→16:22)
[2018-05-12] MEDS: BUMEX TAB 1 MG PO SCH (12:33)
[2018-05-12] MEDS: NS 1000 ML 1,000 ML IV SCH (15:27)
--- NOTE | 2018-05-12 17:46 | PCM.PROG ---
Progress Note - Progress Note for Day of Date of Exam: 05/12/18 - Subjective Subjective: 83 BF DIRECT ADMIT ONE DAY AGO FROM [facility] WITH INCREASED CONFUSION, UTI AND ACUTE ON CHRONIC RENAL FAILURE. PT URINE CULTURE + FOR GRAM - RODS, PT STARTED ON ROCEPHIN YESTERDAY ON ADMISSION, PT HAS MILD ANGIOEDEMA THIS MORNING, ROCEPHIN D/C AND PHARMACY CONSULTED FOR LUKE IV. PT MORE AWAKE AND ALERT THIS AM. CO PAIN TO JOINTS, SHOULDERS. PT RENAL FUNCTION SLIGHTLY IMPROVING. - Past Medical Family Social History Past Med/Fam/Surg Hx: No changes since H&P Allergies: Allergies ceftriaxone [From Rocephin] Allergy (Verified 05/12/18 10:31) tramadol Adverse Reaction (Verified 04/28/17 14:27) - Review of Systems ROS: No change since H&P - Vital Signs and I&O's Vital Signs: Temperature 98.5 F Pulse Rate [Left Radial] 76 Respiratory Rate 20 Blood Pressure [Right Arm] 166/107 Blood Pressure [Left Arm] 137/64 Blood Pressure 137/61 O2 Sat by Pulse Oximetry 96 Intake and Output: Intake & Output 05/10/18 05/11/18 05/12/18 05/13/18 11:59 11:59 11:59 11:59 Intake Total 407 / 407 320 / 320 Output Total 2700 / 2700 Balance -2293 / -2293 320 / 320 - Physical Exam Oriented: Time, Person, Place Eyes: Normal Ear: Normal Nose: Normal Throat: Dry Cardiovascular: Normal, Edema : Normal Auscultation: Bowel Sounds: Normal Tenderness: Normal Skin: Decreased Turgur Musculoskeletal: Right, Left, Knee, Ankle, Foot Psychiatric: Normal Mood Description: Calm Speech Pattern: Unclear, Slurred - Laboratory and Diagnostics Result Diagrams: 05/12/18 05:37 05/12/18 05:37 Labs: 05/11/18 15:20 Urine,[place] Urine Culture - Preliminary Laboratory WBC 5.5 X10^3/uL (3.6-10.0) 05/12/18 05:37 RBC 4.63 X10^6/uL (3.5-5.4) 05/12/18 05:37 Hgb 12.4 g/dL (12.0-16.0) 05/12/18 05:37 Hct 38.8 % (36.0-47.0) 05/12/18 05:37 MCV 83.9 fL (80.0-100.0) 05/12/18 05:37 MCH 26.8 pg (27.0-34.0) L 05/12/18 05:37 MCHC 32.0 g/dL (33.0-35.0) L 05/12/18 05:37 RDW 16.8 % (11.6-16.5) H 05/12/18 05:37 Plt Count 183 X10^3/uL (150.0-450.0) 05/12/18 05:37 MPV 8.9 fL (7.4-11.0) 05/12/18 05:37 Neut % (Auto) 79.4 % (42.0-75.0) H 05/12/18 05:37 Lymph % (Auto) 10.6 % (21.0-51.0) L 05/12/18 05:37 [place] % (Auto) 5.7 % (0.0-13.0) 05/12/18 05:37 Eos % (Auto) 3.4 % (0.9-2.9) H 05/12/18 05:37 Baso % (Auto) 0.9 % (0.2-1.0) 05/12/18 05:37 Neut # (Auto) 4.4 x10^3/uL (2.2-4.8) 05/12/18 05:37 Lymph # (Auto) 0.6 X10^3/uL (1.3-2.9) L 05/12/18 05:37 Ralls # (Auto) 0.3 x10^3/uL (0.3-0.8) 05/12/18 05:37 Eos # (Auto) 0.2 x10^3/uL (0.0-0.2) 05/12/18 05:37 Baso # (Auto) 0.0 X10^3/uL (0.0-0.1) 05/12/18 05:37 Absolute Nucleated RBC 0.0 /100WBC 05/12/18 05:37 Sodium 136 mmol/L (136-145) 05/12/18 05:37 Corrected Sodium TNP 05/12/18 05:37 Potassium 5.6 mmol/L (3.5-5.1) H 05/12/18 05:37 Chloride 103 mmol/L (98-107) 05/12/18 05:37 Carbon Dioxide 25.2 mmol/L (21-32) 05/12/18 05:37 BUN 92 mg/dL (7-18) H 05/12/18 05:37 Creatinine 2.89 mg/dL (0.55-1.02) H 05/12/18 05:37 Est GFR (MDRD) Af Amer 20 (>60) L 05/12/18 05:37 Est GFR (MDRD) Non-Af 16 (>60) L 05/12/18 05:37 Glucose 107 mg/dL (65-99) H 05/12/18 05:37 POC Glucose (mg/dL) 156 mg/dL (65-99) H 05/12/18 16:11 Calcium 9.4 mg/dL (8.5-10.1) 05/12/18 05:37 Corrected Calcium 10.4 mg/dL (8.5-10.1) H 05/12/18 05:37 Total Bilirubin 0.40 mg/dL (0.2-1.0) 05/12/18 05:37 AST 18 Units/L (15-37) 05/12/18 05:37 ALT 12 Units/L (12-78) 05/12/18 05:37 Alkaline Phosphatase 118 Units/L (46-116) H 05/12/18 05:37 Total Protein 6.8 g/dL (6.4-8.2) 05/12/18 05:37 Albumin 2.7 g/dL (3.4-5.0) L 05/12/18 05:37 Globulin 4.1 g/dL (2.5-4.5) 05/12/18 05:37 Albumin/Globulin Ratio 0.7 Ratio (1.1-2.1) L 05/12/18 05:37 Specimen Type Catherized urine 05/11/18 15:20 Urine Color Yellow (YELLOW) 05/11/18 15:20 Urine Appearance Hazy (CLEAR) 05/11/18 15:20 Urine pH 7.0 (5.0 - 8.0) 05/11/18 15:20 Ur Specific [place] 1.010 (1.000-1.030) 05/11/18 15:20 Urine Protein 2+ (NEGATIVE) 05/11/18 15:20 Urine Glucose (UA) Negative (NEGATIVE) 05/11/18 15:20 Urine Ketones Negative (NEGATIVE) 05/11/18 15:20 Urine Occult Blood 1+ (NEGATIVE) 05/11/18 15:20 Urine Nitrite Negative (NEGATIVE) 05/11/18 15:20 Urine Bilirubin Negative (NEGATIVE) 05/11/18 15:20 Urine Urobilinogen Normal (NORMAL) 05/11/18 15:20 Ur Leukocyte Esterase 3+ (NEGATIVE) 05/11/18 15:20 Urine RBC 3-5 /HPF (NONE SEEN) 05/11/18 15:20 Urine WBC 20-30 /HPF (NONE SEEN) 05/11/18 15:20 Ur Squamous Epith Cells Few /HPF (NEGATIVE) 05/11/18 15:20 Urine Bacteria 3+ /HPF (NEGATIVE) 05/11/18 15:20 Urine Mucus Few /HPF (NEGATIVE) 05/11/18 15:20 Ur Culture Indicated? Yes/culture set up 05/11/18 15:20 - Plan (1) Altered mental status, unspecified Status: Acute Plan: CT HEAD ON ADMISSION NO ACUTE CHANGES. CXR, UA/UC BLOOD CULTURES COLLECTED ON ADMISSION. CBC CMP, BS CONTROL, I & OS, EKG ON ADMISSION. SSI, SUPPORTIVE CARE. IV ATBX FOR UTI (2) UTI (urinary tract infection) Status: Acute (3) Acute on chronic renal failure Status: Acute (4) CHF (congestive heart failure) Status: Chronic (5) Hypertension Status: Chronic (6) Hypothyroidism Status: Chronic (7) Diabetes mellitus, type II Status: Chronic (8) Dementia Status: Chronic (9) Hyperkalemia Status: Acute Plan: PO KAEXALATE X2, CONTINUE GENTLE ORAL HYDRATION. REPEAT AM CMP
[2018-05-12] MEDS ORDERED: BUMEX INJ 1 MG VIAL IVP SCH (18:00)
[2018-05-12] MEDS: KAYEXALATE SUSP PO SCH ×2 (18:15→21:51)
[2018-05-12] MEDS: SNACK - Diabetic Appropriate PO SCH (21:00)
[2018-05-12] MEDS: LIPITOR TAB 40 MG PO SCH (21:51)
[2018-05-13 06:28] LABS: BASOPHILS % (AUTO) 0.4 % (0.2-1.0); EOSINOPHILS # (AUTO) 0.4 x10^3/uL (0.0-0.2); EOSINOPHILS % (AUTO) 7.8 % (0.9-2.9); HEMATOCRIT 38.1 % (36.0-47.0); HEMOGLOBIN 12.2 g/dL (12.0-16.0); LYMPHOCYTES # (AUTO) 1.1 X10^3/uL (1.3-2.9); LYMPHOCYTES % (AUTO) 23.8 % (21.0-51.0); MEAN CORPUSCULAR HEMOGLOBIN 26.9 pg (27.0-34.0); MEAN CORPUSCULAR HGB CONC 31.9 g/dL (33.0-35.0); MEAN CORPUSCULAR VOLUME 84.3 fL (80.0-100.0); MEAN PLATELET VOLUME 8.9 fL (7.4-11.0); MONOCYTES # (AUTO) 0.5 x10^3/uL (0.3-0.8); MONOCYTES % (AUTO) 11.5 % (0.0-13.0); NEUTROPHILS # (AUTO) 2.6 x10^3/uL (2.2-4.8); NEUTROPHILS % (AUTO) 56.5 % (42.0-75.0); PLATELET COUNT 167 X10^3/uL (150.0-450.0); RED BLOOD COUNT 4.52 X10^6/uL (3.5-5.4); RED CELL DISTRIBUTION WIDTH 16.5 % (11.6-16.5); WHITE BLOOD COUNT 4.6 X10^3/uL (3.6-10.0)
[2018-05-13 06:37] LABS: ALBUMIN 2.5 g/dL (3.4-5.0); CALCIUM 9.2 mg/dL (8.5-10.1); CARBON DIOXIDE 27.1 mmol/L (21-32); COR CA(FOR HYPOALB) 10.4 mg/dL (8.5-10.1); CREATININE 3.05 mg/dL (0.55-1.02); TOTAL PROTEIN 6.4 g/dL (6.4-8.2)
--- NOTE | 2018-05-13 06:37 | RAD ---
HISTORY: CHF, hypertension Study: Single-view chest Comparison: 05/11/2018. Findings: There is slight syla-as-hmbfe deviation of the trachea secondary to aortic uncoiling. Heart size norm al. Stable, chronic increased interstitial markings are present bilaterally without infiltrate, CHF, pleural fluid or pneumothorax. Osseous structures displayed no acute abnormality. There is degenerati ve change present involving both glenohumeral joints. IMPRESSION: No acute cardiopulmonary disease. Reported By:
[2018-05-13] MEDS: INVANZ INJ 1 GM VIAL 0.5 GM in NS 100 ML IV 100 ML IV SCH (08:32)
[2018-05-13] MEDS: BUMEX TAB 1 MG PO SCH (08:32)
[2018-05-13] MEDS: ASPIRIN EC 81 MG PO SCH (08:33)
[2018-05-13] MEDS: PLAVIX PO SCH (08:33)
[2018-05-13] MEDS: PROTONIX TAB 40 MG PO SCH (08:33)
[2018-05-13] MEDS: SYNTHROID 100 mcg TAB PO SCH (08:33)
[2018-05-13] MEDS: KAYEXALATE SUSP PO SCH ×2 (08:34→21:22)
[2018-05-13] MEDS: LEVEMIR SC SCH (08:34)
[2018-05-13] MEDS: COREG TAB 12.5 MG PO SCH ×2 (08:40→21:22)
[2018-05-13] MEDS: NS 1000 ML 1,000 ML IV SCH (16:03)
[2018-05-13] MEDS: HumuLIN R SUBCUT PRN (16:31)
--- NOTE | 2018-05-13 17:13 | PCM.PROG ---
Progress Note - Progress Note for Day of Date of Exam: 05/13/18 - Subjective Subjective: 83 BF DIRECT ADMIT ONE DAY AGO FROM [place] WITH INCREASED CONFUSION, UTI AND ACUTE ON CHRONIC RENAL FAILURE. PT URINE CULTURE + FOR GRAM - RODS, PT STARTED ON ROCEPHIN YESTERDAY ON ADMISSION, PT HAS MILD ANGIOEDEMA THIS MORNING, ROCEPHIN D/C AND PHARMACY CONSULTED FOR MEROPENEM. PT FAMILY REPORTS CONTINUED EPISODES OF CONFUSION. PT HAS INCREASED CHEST CONGESTION AND CO COUGH THIS AM. PT HAS CONTINUE LOWER EXTREMITY EDEMA AND DIFFUSE WEAKNESS. - Past Medical Family Social History Past Med/Fam/Surg Hx: No changes since H&P Allergies: Allergies ceftriaxone [From Rocephin] Allergy (Verified 05/12/18 10:31) tramadol Adverse Reaction (Verified 04/28/17 14:27) - Review of Systems ROS: No change since H&P - Vital Signs and I&O's Vital Signs: Temperature 98.2 F Pulse Rate [Left Radial] 96 Respiratory Rate 20 Blood Pressure [Right Arm] 166/107 Blood Pressure [Left Arm] 167/71 Blood Pressure 137/61 O2 Sat by Pulse Oximetry 97 Intake and Output: Intake & Output 05/11/18 05/12/18 05/13/18 05/14/18 11:59 11:59 11:59 11:59 Intake Total 407 / 407 980 / 980 1500 / 1500 Output Total 2700 / 2700 Balance -2293 / -2293 980 / 980 1500 / 1500 - Physical Exam Oriented: Time, Person, Place Eyes: Normal Ear: Normal Nose: Normal Throat: Dry Respiratory: Diminished, Rhonchi Cardiovascular: Normal, Edema : Normal Auscultation: Bowel Sounds: Normal Tenderness: Normal Skin: Decreased Turgur Musculoskeletal: Right, Left, Knee, Ankle, Foot Psychiatric: Normal Mood Description: Calm Speech Pattern: Unclear, Slurred - Laboratory and Diagnostics Result Diagrams: 05/13/18 05:38 05/13/18 05:38 Labs: 05/11/18 13:38 Blood Blood Culture - Preliminary 05/11/18 13:18 Blood Blood Culture - Preliminary 05/11/18 15:20 Urine,[place] Urine Culture - Final Escherichia Coli Laboratory WBC 4.6 X10^3/uL (3.6-10.0) 05/13/18 05:38 RBC 4.52 X10^6/uL (3.5-5.4) 05/13/18 05:38 Hgb 12.2 g/dL (12.0-16.0) 05/13/18 05:38 Hct 38.1 % (36.0-47.0) 05/13/18 05:38 MCV 84.3 fL (80.0-100.0) 05/13/18 05:38 MCH 26.9 pg (27.0-34.0) L 05/13/18 05:38 MCHC 31.9 g/dL (33.0-35.0) L 05/13/18 05:38 RDW 16.5 % (11.6-16.5) 05/13/18 05:38 Plt Count 167 X10^3/uL (150.0-450.0) 05/13/18 05:38 MPV 8.9 fL (7.4-11.0) 05/13/18 05:38 Neut % (Auto) 56.5 % (42.0-75.0) 05/13/18 05:38 Lymph % (Auto) 23.8 % (21.0-51.0) 05/13/18 05:38 [place] % (Auto) 11.5 % (0.0-13.0) 05/13/18 05:38 Eos % (Auto) 7.8 % (0.9-2.9) H 05/13/18 05:38 Baso % (Auto) 0.4 % (0.2-1.0) 05/13/18 05:38 Neut # (Auto) 2.6 x10^3/uL (2.2-4.8) 05/13/18 05:38 Lymph # (Auto) 1.1 X10^3/uL (1.3-2.9) L 05/13/18 05:38 [place] # (Auto) 0.5 x10^3/uL (0.3-0.8) 05/13/18 05:38 Eos # (Auto) 0.4 x10^3/uL (0.0-0.2) H 05/13/18 05:38 Baso # (Auto) 0.0 X10^3/uL (0.0-0.1) 05/13/18 05:38 Absolute Nucleated RBC 0.1 /100WBC 05/13/18 05:38 Sodium 141 mmol/L (136-145) 05/13/18 05:38 Corrected Sodium 142 mmol/L (136-145) 05/13/18 05:38 Potassium 4.7 mmol/L (3.5-5.1) 05/13/18 05:38 Chloride 105 mmol/L (98-107) 05/13/18 05:38 Carbon Dioxide 27.1 mmol/L (21-32) 05/13/18 05:38 BUN 89 mg/dL (7-18) H 05/13/18 05:38 Creatinine 3.05 mg/dL (0.55-1.02) H 05/13/18 05:38 Est GFR (MDRD) Af Amer 19 (>60) L 05/13/18 05:38 Est GFR (MDRD) Non-Af 15 (>60) L 05/13/18 05:38 Glucose 135 mg/dL (65-99) H 05/13/18 05:38 POC Glucose (mg/dL) 193 mg/dL (65-99) H 05/13/18 16:25 Calcium 9.2 mg/dL (8.5-10.1) 05/13/18 05:38 Corrected Calcium 10.4 mg/dL (8.5-10.1) H 05/13/18 05:38 Total Bilirubin 0.20 mg/dL (0.2-1.0) 05/13/18 05:38 AST 20 Units/L (15-37) 05/13/18 05:38 ALT 10 Units/L (12-78) L 05/13/18 05:38 Alkaline Phosphatase 110 Units/L (46-116) 05/13/18 05:38 Total Protein 6.4 g/dL (6.4-8.2) 05/13/18 05:38 Albumin 2.5 g/dL (3.4-5.0) L 05/13/18 05:38 Globulin 3.9 g/dL (2.5-4.5) 05/13/18 05:38 Albumin/Globulin Ratio 0.6 Ratio (1.1-2.1) L 05/13/18 05:38 Specimen Type Catherized urine 05/11/18 15:20 Urine Color Yellow (YELLOW) 05/11/18 15:20 Urine Appearance Hazy (CLEAR) 05/11/18 15:20 Urine pH 7.0 (5.0 - 8.0) 05/11/18 15:20 Ur Specific [place] 1.010 (1.000-1.030) 05/11/18 15:20 Urine Protein 2+ (NEGATIVE) 05/11/18 15:20 Urine Glucose (UA) Negative (NEGATIVE) 05/11/18 15:20 Urine Ketones Negative (NEGATIVE) 05/11/18 15:20 Urine Occult Blood 1+ (NEGATIVE) 05/11/18 15:20 Urine Nitrite Negative (NEGATIVE) 05/11/18 15:20 Urine Bilirubin Negative (NEGATIVE) 05/11/18 15:20 Urine Urobilinogen Normal (NORMAL) 05/11/18 15:20 Ur Leukocyte Esterase 3+ (NEGATIVE) 05/11/18 15:20 Urine RBC 3-5 /HPF (NONE SEEN) 05/11/18 15:20 Urine WBC 20-30 /HPF (NONE SEEN) 05/11/18 15:20 Ur Squamous Epith Cells Few /HPF (NEGATIVE) 05/11/18 15:20 Urine Bacteria 3+ /HPF (NEGATIVE) 05/11/18 15:20 Urine Mucus Few /HPF (NEGATIVE) 05/11/18 15:20 Ur Culture Indicated? Yes/culture set up 05/11/18 15:20 - Plan (1) Altered mental status, unspecified Status: Acute Plan: CT HEAD ON ADMISSION NO ACUTE CHANGES. CXR, UA/UC BLOOD CULTURES COLLECTED ON ADMISSION. CBC CMP, BS CONTROL, I & OS, EKG ON ADMISSION. SSI, SUPPORTIVE CARE. IV ATBX FOR UTI (2) UTI (urinary tract infection) Status: Acute Plan: IV ATBX, I & OX. URINE CULTURE +ECOLI (3) Acute on chronic renal failure Status: Acute Plan: CONTINUE GENTLE HYDRATION, BP MONITORING. STRICT I & OS (4) CHF (congestive heart failure) Status: Chronic Plan: AM CXR, SUPPLEMENTAL O2. I & OS (5) Hypertension Status: Chronic (6) Hypothyroidism Status: Chronic (7) Diabetes mellitus, type II Status: Chronic (8) Dementia Status: Chronic (9) Hyperkalemia Status: Acute Plan: REPEAT AM CMP
[2018-05-13] MEDS: LIPITOR TAB 40 MG PO SCH (21:22)
[2018-05-13] MEDS: SNACK - Diabetic Appropriate PO SCH (21:23)
[2018-05-14 05:17] LABS: BASOPHILS % (AUTO) 0.6 % (0.2-1.0); EOSINOPHILS # (AUTO) 0.4 x10^3/uL (0.0-0.2); EOSINOPHILS % (AUTO) 8.2 % (0.9-2.9); HEMOGLOBIN 12.3 g/dL (12.0-16.0); LYMPHOCYTES # (AUTO) 1.1 X10^3/uL (1.3-2.9); LYMPHOCYTES % (AUTO) 20.9 % (21.0-51.0); MEAN CORPUSCULAR HEMOGLOBIN 26.9 pg (27.0-34.0); MEAN CORPUSCULAR HGB CONC 31.7 g/dL (33.0-35.0); MEAN CORPUSCULAR VOLUME 84.8 fL (80.0-100.0); MEAN PLATELET VOLUME 9.2 fL (7.4-11.0); MONOCYTES # (AUTO) 0.6 x10^3/uL (0.3-0.8); MONOCYTES % (AUTO) 12.1 % (0.0-13.0); NEUTROPHILS % (AUTO) 58.2 % (42.0-75.0); PLATELET COUNT 179 X10^3/uL (150.0-450.0); RED BLOOD COUNT 4.59 X10^6/uL (3.5-5.4); RED CELL DISTRIBUTION WIDTH 17.2 % (11.6-16.5); WHITE BLOOD COUNT 5.1 X10^3/uL (3.6-10.0)
[2018-05-14 05:41] LABS: ALANINE AMINOTRANSFERASE 12 Units/L (12-78); ALBUMIN 2.6 g/dL (3.4-5.0); ALKALINE PHOSPHATASE 114 Units/L (46-116); ASPARTATE AMINO TRANSFERASE 19 Units/L (15-37); BLOOD UREA NITROGEN 80 mg/dL (7-18); CARBON DIOXIDE 28.9 mmol/L (21-32); CHLORIDE 106 mmol/L (98-107); COR CA(FOR HYPOALB) 10.1 mg/dL (8.5-10.1); SODIUM 144 mmol/L (136-145); TOTAL PROTEIN 6.6 g/dL (6.4-8.2); eGFR NON BLACK RACES 16 (>60)
[2018-05-14] MEDS: TYLENOL #3 TAB (W/CODEINE) PO PRN (08:43)
[2018-05-14] MEDS: BUMEX TAB 1 MG PO SCH (08:43)
[2018-05-14] MEDS: ASPIRIN EC 81 MG PO SCH (08:43)
[2018-05-14] MEDS: SYNTHROID 100 mcg TAB PO SCH (08:44)
[2018-05-14] MEDS: COREG TAB 12.5 MG PO SCH ×2 (08:44→21:04)
[2018-05-14] MEDS: PROTONIX TAB 40 MG PO SCH (08:44)
[2018-05-14] MEDS: INVANZ INJ 1 GM VIAL 0.5 GM in NS 100 ML IV 100 ML IV SCH (08:44)
[2018-05-14] MEDS: PLAVIX PO SCH (08:44)
[2018-05-14] MEDS: LEVEMIR SC SCH (09:07)
[2018-05-14] MEDS: NYSTATIN SUSP MT SCH ×4 (10:29→21:06)
[2018-05-14] MEDS: HumuLIN R SUBCUT PRN (11:34)
--- NOTE | 2018-05-14 17:57 | PCM.PROG ---
Progress Note - Progress Note for Day of Date of Exam: 05/14/18 - Subjective Subjective: 83 BF DIRECT ADMIT ONE DAY AGO FROM [place] WITH INCREASED CONFUSION, UTI AND ACUTE ON CHRONIC RENAL FAILURE. PT URINE CULTURE + FOR GRAM - RODS, ON IV MEROPENEM. PT FAMILY REPORTS CONTINUED EPISODES OF CONFUSION. PT HAS INCREASED CHEST CONGESTION AND CO COUGH THIS AM. PT HAS CONTINUE LOWER EXTREMITY EDEMA AND DIFFUSE WEAKNESS. PT ASKING FOR COUGH SYRUP. PT BS DROPPING LOW DURING THE NIGHT PER NURSING STAFF, DECREASE BASAL INSULIN DOSE - Past Medical Family Social History Past Med/Fam/Surg Hx: No changes since H&P Allergies: Allergies ceftriaxone [From Rocephin] Allergy (Verified 05/12/18 10:31) tramadol Adverse Reaction (Verified 04/28/17 14:27) - Review of Systems ROS: No change since H&P - Vital Signs and I&O's Vital Signs: Temperature 98.2 F Pulse Rate [Left Radial] 114 Respiratory Rate 20 Blood Pressure [Right Arm] 165/77 Blood Pressure [Left Arm] 133/70 Blood Pressure 137/61 O2 Sat by Pulse Oximetry 93 Intake and Output: Intake & Output 05/12/18 05/13/18 05/14/18 05/15/18 11:59 11:59 11:59 11:59 Intake Total 407 / 407 980 / 980 2278 / 2278 600 / 600 Output Total 2700 / 2700 Balance -2293 / -2293 980 / 980 2278 / 2278 600 / 600 - Physical Exam Oriented: Time, Person, Place Eyes: Normal Ear: Normal Nose: Normal Throat: Dry Respiratory: Diminished, Rhonchi Cardiovascular: Normal, Edema : Normal Auscultation: Bowel Sounds: Normal Tenderness: Normal Skin: Decreased Turgur Musculoskeletal: Right, Left, Knee, Ankle, Foot Psychiatric: Normal Mood Description: Calm Speech Pattern: Clear - Laboratory and Diagnostics Result Diagrams: 05/14/18 04:18 05/14/18 04:18 Labs: 05/11/18 13:38 Blood Blood Culture - Preliminary 05/11/18 13:18 Blood Blood Culture - Preliminary 05/11/18 15:20 Urine,[place] Urine Culture - Final Escherichia Coli Laboratory WBC 5.1 X10^3/uL (3.6-10.0) 05/14/18 04:18 RBC 4.59 X10^6/uL (3.5-5.4) 05/14/18 04:18 Hgb 12.3 g/dL (12.0-16.0) 05/14/18 04:18 Hct 39.0 % (36.0-47.0) 05/14/18 04:18 MCV 84.8 fL (80.0-100.0) 05/14/18 04:18 MCH 26.9 pg (27.0-34.0) L 05/14/18 04:18 MCHC 31.7 g/dL (33.0-35.0) L 05/14/18 04:18 RDW 17.2 % (11.6-16.5) H 05/14/18 04:18 Plt Count 179 X10^3/uL (150.0-450.0) 05/14/18 04:18 MPV 9.2 fL (7.4-11.0) 05/14/18 04:18 Neut % (Auto) 58.2 % (42.0-75.0) 05/14/18 04:18 Lymph % (Auto) 20.9 % (21.0-51.0) L 05/14/18 04:18 [place] % (Auto) 12.1 % (0.0-13.0) 05/14/18 04:18 Eos % (Auto) 8.2 % (0.9-2.9) H 05/14/18 04:18 Baso % (Auto) 0.6 % (0.2-1.0) 05/14/18 04:18 Neut # (Auto) 3.0 x10^3/uL (2.2-4.8) 05/14/18 04:18 Lymph # (Auto) 1.1 X10^3/uL (1.3-2.9) L 05/14/18 04:18 [place] # (Auto) 0.6 x10^3/uL (0.3-0.8) 05/14/18 04:18 Eos # (Auto) 0.4 x10^3/uL (0.0-0.2) H 05/14/18 04:18 Baso # (Auto) 0.0 X10^3/uL (0.0-0.1) 08/02/18 04:18 Absolute Nucleated RBC 0.0 /100WBC 05/14/18 04:18 Sodium 144 mmol/L (136-145) 05/14/18 04:18 Corrected Sodium TNP 05/14/18 04:18 Potassium 4.2 mmol/L (3.5-5.1) 05/14/18 04:18 Chloride 106 mmol/L (98-107) 05/14/18 04:18 Carbon Dioxide 28.9 mmol/L (21-32) 05/14/18 04:18 BUN 80 mg/dL (7-18) H 05/14/18 04:18 Creatinine 3.00 mg/dL (0.55-1.02) H 05/14/18 04:18 Est GFR (MDRD) Af Amer 19 (>60) L 05/14/18 04:18 Est GFR (MDRD) Non-Af 16 (>60) L 05/14/18 04:18 Glucose 93 mg/dL (65-99) 05/14/18 04:18 POC Glucose (mg/dL) 151 mg/dL (65-99) H 05/14/18 16:38 Calcium 9.0 mg/dL (8.5-10.1) 05/14/18 04:18 Corrected Calcium 10.1 mg/dL (8.5-10.1) 05/14/18 04:18 Total Bilirubin 0.40 mg/dL (0.2-1.0) 05/14/18 04:18 AST 19 Units/L (15-37) 05/14/18 04:18 ALT 12 Units/L (12-78) 05/14/18 04:18 Alkaline Phosphatase 114 Units/L (46-116) 05/14/18 04:18 Total Protein 6.6 g/dL (6.4-8.2) 05/14/18 04:18 Albumin 2.6 g/dL (3.4-5.0) L 05/14/18 04:18 Globulin 4.0 g/dL (2.5-4.5) 05/14/18 04:18 Albumin/Globulin Ratio 0.7 Ratio (1.1-2.1) L 05/14/18 04:18 Specimen Type Catherized urine 05/11/18 15:20 Urine Color Yellow (YELLOW) 05/11/18 15:20 Urine Appearance Hazy (CLEAR) 05/11/18 15:20 Urine pH 7.0 (5.0 - 8.0) 05/11/18 15:20 Ur Specific [place] 1.010 (1.000-1.030) 05/11/18 15:20 Urine Protein 2+ (NEGATIVE) 05/11/18 15:20 Urine Glucose (UA) Negative (NEGATIVE) 05/11/18 15:20 Urine Ketones Negative (NEGATIVE) 05/11/18 15:20 Urine Occult Blood 1+ (NEGATIVE) 05/11/18 15:20 Urine Nitrite Negative (NEGATIVE) 05/11/18 15:20 Urine Bilirubin Negative (NEGATIVE) 05/11/18 15:20 Urine Urobilinogen Normal (NORMAL) 05/11/18 15:20 Ur Leukocyte Esterase 3+ (NEGATIVE) 05/11/18 15:20 Urine RBC 3-5 /HPF (NONE SEEN) 05/11/18 15:20 Urine WBC 20-30 /HPF (NONE SEEN) 05/11/18 15:20 Ur Squamous Epith Cells Few /HPF (NEGATIVE) 05/11/18 15:20 Urine Bacteria 3+ /HPF (NEGATIVE) 05/11/18 15:20 Urine Mucus Few /HPF (NEGATIVE) 05/11/18 15:20 Ur Culture Indicated? Yes/culture set up 05/11/18 15:20 - Plan (1) Altered mental status, unspecified Status: Acute Plan: CT HEAD ON ADMISSION NO ACUTE CHANGES. CXR, UA/UC BLOOD CULTURES COLLECTED ON ADMISSION. CBC CMP, BS CONTROL, I & OS, EKG ON ADMISSION. SSI, SUPPORTIVE CARE. IV ATBX FOR UTI (2) UTI (urinary tract infection) Status: Acute Plan: IV ATBX, I & OX. URINE CULTURE +ECOLI (3) Acute on chronic renal failure Status: Acute Plan: CONTINUE GENTLE HYDRATION, BP MONITORING. STRICT I & OS (4) CHF (congestive heart failure) Status: Chronic Plan: AM CXR, SUPPLEMENTAL O2. I & OS (5) Hypertension Status: Chronic (6) Hypothyroidism Status: Chronic (7) Diabetes mellitus, type II Status: Chronic Plan: BS CONTROL MONITORING FOR HYPOGLYCEMIA (8) Dementia Status: Chronic (9) Hyperkalemia Status: Acute Plan: STABLE. REPEAT AM CMP (10) Acute bronchitis Status: Acute Plan: CONTINUE RESP THERAPY, ROBITUSSIN
[2018-05-14] MEDS: SNACK - Diabetic Appropriate PO SCH (21:04)
[2018-05-14] MEDS: LIPITOR TAB 40 MG PO SCH (21:05)
[2018-05-14] MEDS: NS 1000 ML 1,000 ML IV SCH (21:05)
[2018-05-15 05:30] LABS: BASOPHILS % (AUTO) 0.4 % (0.2-1.0); EOSINOPHILS # (AUTO) 0.1 x10^3/uL (0.0-0.2); EOSINOPHILS % (AUTO) 1.8 % (0.9-2.9); HEMATOCRIT 39.8 % (36.0-47.0); HEMOGLOBIN 12.6 g/dL (12.0-16.0); LYMPHOCYTES # (AUTO) 0.8 X10^3/uL (1.3-2.9); LYMPHOCYTES % (AUTO) 11.4 % (21.0-51.0); MEAN CORPUSCULAR HEMOGLOBIN 26.9 pg (27.0-34.0); MEAN CORPUSCULAR HGB CONC 31.6 g/dL (33.0-35.0); MEAN CORPUSCULAR VOLUME 85.4 fL (80.0-100.0); MEAN PLATELET VOLUME 8.9 fL (7.4-11.0); MONOCYTES # (AUTO) 0.6 x10^3/uL (0.3-0.8); MONOCYTES % (AUTO) 8.1 % (0.0-13.0); NEUTROPHILS # (AUTO) 5.7 x10^3/uL (2.2-4.8); NEUTROPHILS % (AUTO) 78.3 % (42.0-75.0); PLATELET COUNT 182 X10^3/uL (150.0-450.0); RED BLOOD COUNT 4.66 X10^6/uL (3.5-5.4); RED CELL DISTRIBUTION WIDTH 17.1 % (11.6-16.5); WHITE BLOOD COUNT 7.3 X10^3/uL (3.6-10.0)
[2018-05-15 05:35] LABS: ALBUMIN 2.6 g/dL (3.4-5.0); CARBON DIOXIDE 27.5 mmol/L (21-32); COR CA(FOR HYPOALB) 10.1 mg/dL (8.5-10.1); CREATININE 2.76 mg/dL (0.55-1.02); TOTAL PROTEIN 6.8 g/dL (6.4-8.2)
[2018-05-15] MEDS: PROTONIX TAB 40 MG PO SCH (09:35)
[2018-05-15] MEDS: SYNTHROID 100 mcg TAB PO SCH (09:35)
[2018-05-15] MEDS: PLAVIX PO SCH (09:35)
[2018-05-15] MEDS: COREG TAB 12.5 MG PO SCH (09:35)
[2018-05-15] MEDS: BUMEX TAB 1 MG PO SCH (09:35)
[2018-05-15] MEDS: ASPIRIN EC 81 MG PO SCH (09:36)
[2018-05-15] MEDS: INVANZ INJ 1 GM VIAL 0.5 GM in NS 100 ML IV 100 ML IV SCH (09:36)
[2018-05-15] MEDS: NYSTATIN SUSP MT SCH (09:37)
[2018-05-15 13:23] VITALS: BP 106/66
--- NOTE | 2018-05-15 14:15 | PCM.PROG ---
Progress Note - Progress Note for Day of Date of Exam: 05/15/18 - Subjective Subjective: 83 BF DIRECT ADMIT ONE DAY AGO FROM [place] WITH INCREASED CONFUSION, UTI AND ACUTE ON CHRONIC RENAL FAILURE. PT URINE CULTURE + FOR GRAM - RODS, ON IV MEROPENEM. PT FAMILY REPORTS CONTINUED EPISODES OF CONFUSION. PT HAS INCREASED CHEST CONGESTION AND CO COUGH CONTINUED. PT HAS GRADUAL IMPROVEMENT IN RENAL FUNCTION. FAMILY REQUESTING PT BE TRANSFERRED TO [facility] - Past Medical Family Social History Past Med/Fam/Surg Hx: No changes since H&P Allergies: Allergies ceftriaxone [From Rocephin] Allergy (Verified 05/12/18 10:31) tramadol Adverse Reaction (Verified 04/28/17 14:27) - Review of Systems ROS: No change since H&P - Vital Signs and I&O's Vital Signs: Temperature 98.3 F Pulse Rate [Left Radial] 86 Respiratory Rate 20 Blood Pressure [Right Arm] 106/66 Blood Pressure [Left Arm] 133/70 Blood Pressure 137/61 O2 Sat by Pulse Oximetry 96 Intake and Output: Intake & Output 05/13/18 05/14/18 05/15/18 05/16/18 11:59 11:59 11:59 11:59 Intake Total 980 / 980 2278 / 2278 840 / 840 Balance 980 / 980 2278 / 2278 840 / 840 - Physical Exam Oriented: Time, Person, Place Eyes: Normal Ear: Normal Nose: Normal Throat: Dry Respiratory: Diminished, Rhonchi Cardiovascular: Normal, Edema : Normal Auscultation: Bowel Sounds: Normal Tenderness: Normal Skin: Decreased Turgur Musculoskeletal: Right, Left, Knee, Ankle, Foot Psychiatric: Normal Mood Description: Calm Speech Pattern: Clear - Laboratory and Diagnostics Result Diagrams: 05/15/18 04:20 05/15/18 04:20 Labs: 05/11/18 13:38 Blood Blood Culture - Preliminary 05/11/18 13:18 Blood Blood Culture - Preliminary 05/11/18 15:20 Urine,[place] Urine Culture - Final Escherichia Coli Laboratory WBC 7.3 X10^3/uL (3.6-10.0) 05/15/18 04:20 RBC 4.66 X10^6/uL (3.5-5.4) 05/15/18 04:20 Hgb 12.6 g/dL (12.0-16.0) 05/15/18 04:20 Hct 39.8 % (36.0-47.0) 05/15/18 04:20 MCV 85.4 fL (80.0-100.0) 05/15/18 04:20 MCH 26.9 pg (27.0-34.0) L 05/15/18 04:20 MCHC 31.6 g/dL (33.0-35.0) L 05/15/18 04:20 RDW 17.1 % (11.6-16.5) H 05/15/18 04:20 Plt Count 182 X10^3/uL (150.0-450.0) 05/15/18 04:20 MPV 8.9 fL (7.4-11.0) 05/15/18 04:20 Neut % (Auto) 78.3 % (42.0-75.0) H 05/15/18 04:20 Lymph % (Auto) 11.4 % (21.0-51.0) L 05/15/18 04:20 [place] % (Auto) 8.1 % (0.0-13.0) 05/15/18 04:20 Eos % (Auto) 1.8 % (0.9-2.9) 05/15/18 04:20 Baso % (Auto) 0.4 % (0.2-1.0) 05/15/18 04:20 Neut # (Auto) 5.7 x10^3/uL (2.2-4.8) H 05/15/18 04:20 Lymph # (Auto) 0.8 X10^3/uL (1.3-2.9) L 05/15/18 04:20 [place] # (Auto) 0.6 x10^3/uL (0.3-0.8) 05/15/18 04:20 Eos # (Auto) 0.1 x10^3/uL (0.0-0.2) 05/15/18 04:20 Baso # (Auto) 0.0 X10^3/uL (0.0-0.1) 05/15/18 04:20 Absolute Nucleated RBC 0.1 /100WBC 05/15/18 04:20 Sodium 141 mmol/L (136-145) 05/15/18 04:20 Corrected Sodium 143 mmol/L (136-145) 05/15/18 04:20 Potassium 4.1 mmol/L (3.5-5.1) 05/15/18 04:20 Chloride 104 mmol/L (98-107) 05/15/18 04:20 Carbon Dioxide 27.5 mmol/L (21-32) 05/15/18 04:20 BUN 69 mg/dL (7-18) H 05/15/18 04:20 Creatinine 2.76 mg/dL (0.55-1.02) H 05/15/18 04:20 Est GFR (MDRD) Af Amer 21 (>60) L 05/15/18 04:20 Est GFR (MDRD) Non-Af 17 (>60) L 05/15/18 04:20 Glucose 167 mg/dL (65-99) H 05/15/18 04:20 POC Glucose (mg/dL) 161 mg/dL (65-99) H 05/15/18 12:09 Calcium 9.0 mg/dL (8.5-10.1) 05/15/18 04:20 Corrected Calcium 10.1 mg/dL (8.5-10.1) 05/15/18 04:20 Total Bilirubin 0.50 mg/dL (0.2-1.0) 05/15/18 04:20 AST 20 Units/L (15-37) 05/15/18 04:20 ALT 9 Units/L (12-78) L 05/15/18 04:20 Alkaline Phosphatase 119 Units/L (46-116) H 05/15/18 04:20 Total Protein 6.8 g/dL (6.4-8.2) 05/15/18 04:20 Albumin 2.6 g/dL (3.4-5.0) L 05/15/18 04:20 Globulin 4.2 g/dL (2.5-4.5) 05/15/18 04:20 Albumin/Globulin Ratio 0.6 Ratio (1.1-2.1) L 05/15/18 04:20 Specimen Type Catherized urine 05/11/18 15:20 Urine Color Yellow (YELLOW) 05/11/18 15:20 Urine Appearance Hazy (CLEAR) 05/11/18 15:20 Urine pH 7.0 (5.0 - 8.0) 05/11/18 15:20 Ur Specific [place] 1.010 (1.000-1.030) 05/11/18 15:20 Urine Protein 2+ (NEGATIVE) 05/11/18 15:20 Urine Glucose (UA) Negative (NEGATIVE) 05/11/18 15:20 Urine Ketones Negative (NEGATIVE) 05/11/18 15:20 Urine Occult Blood 1+ (NEGATIVE) 05/11/18 15:20 Urine Nitrite Negative (NEGATIVE) 05/11/18 15:20 Urine Bilirubin Negative (NEGATIVE) 05/11/18 15:20 Urine Urobilinogen Normal (NORMAL) 05/11/18 15:20 Ur Leukocyte Esterase 3+ (NEGATIVE) 05/11/18 15:20 Urine RBC 3-5 /HPF (NONE SEEN) 05/11/18 15:20 Urine WBC 20-30 /HPF (NONE SEEN) 05/11/18 15:20 Ur Squamous Epith Cells Few /HPF (NEGATIVE) 05/11/18 15:20 Urine Bacteria 3+ /HPF (NEGATIVE) 05/11/18 15:20 Urine Mucus Few /HPF (NEGATIVE) 05/11/18 15:20 Ur Culture Indicated? Yes/culture set up 05/11/18 15:20 - Plan (1) Altered mental status, unspecified Status: Acute Plan: CT HEAD ON ADMISSION NO ACUTE CHANGES. CXR, UA/UC BLOOD CULTURES COLLECTED ON ADMISSION. CBC CMP, BS CONTROL, I & OS, EKG ON ADMISSION. SSI, SUPPORTIVE CARE. IV ATBX FOR UTI (2) UTI (urinary tract infection) Status: Acute Plan: IV ATBX, I & OX. URINE CULTURE +ECOLI (3) Acute on chronic renal failure Status: Acute Plan: CONTINUE GENTLE HYDRATION, BP MONITORING. STRICT I & OS (4) CHF (congestive heart failure) Status: Chronic Plan: AM CXR, SUPPLEMENTAL O2. I & OS (5) Hypertension Status: Chronic (6) Hypothyroidism Status: Chronic (7) Diabetes mellitus, type II Status: Chronic Plan: BS CONTROL MONITORING FOR HYPOGLYCEMIA (8) Dementia Status: Chronic (9) Hyperkalemia Status: Acute Plan: STABLE. REPEAT AM CMP (10) Acute bronchitis Status: Acute Plan: CONTINUE RESP THERAPY, ROBITUSSIN
--- NOTE | 2018-05-24 21:39 | PCM.DCPLAN ---
Discharge Summary - Admission Date Date of Admission: 05/11/18 - Discharge Date Discharge Date: 05/15/18 - Admission Diagnoses (1) Acute on chronic renal failure Status: Acute (2) Altered mental status, unspecified Status: Acute (3) Dehydration Status: Acute (4) Dementia Status: Chronic (5) Diabetes mellitus, type II Status: Chronic (6) Hypertension Status: Chronic (7) UTI (urinary tract infection) Status: Acute - Discharge Diagnoses Discharge Diagnosis: SAME ADMISSION DIAGNOSIS - Discharge Medications Discharge Medications: Home Medication List amino acids-protein hydrolys [Pro-Stat AWC] 1 pkg PO BID 05/11/18 [History] epoetin emiliano [Procrit] 1 unit SUB-Q QMONTH 05/11/18 [History] gabapentin 1 cap PO Q8H PRN 05/11/18 [History] iron-folic acid-mv, min cmb#15 [Hemocyte-Plus] 1 tab PO DAILY 05/11/18 [History] metoclopramide HCl [Reglan] 1 tab PO AC 05/11/18 [History] omeprazole 1 cap PO DAILY 05/11/18 [History] ranitidine HCl [Zantac] 1 tab PO HS 05/11/18 [History] Prescriptions: - Hospital Course Vital Signs: Temperature 98.3 F Pulse Rate [Left Radial] 86 Respiratory Rate 20 Blood Pressure [Right Arm] 106/66 Blood Pressure [Left Arm] 133/70 Blood Pressure 137/61 O2 Sat by Pulse Oximetry 96 Latest Lab Results: Laboratory Last Values WBC 7.3 X10^3/uL (3.6-10.0) 05/15/18 04:20 RBC 4.66 X10^6/uL (3.5-5.4) 05/15/18 04:20 Hgb 12.6 g/dL (12.0-16.0) 05/15/18 04:20 Hct 39.8 % (36.0-47.0) 05/15/18 04:20 MCV 85.4 fL (80.0-100.0) 05/15/18 04:20 MCH 26.9 pg (27.0-34.0) L 05/15/18 04:20 MCHC 31.6 g/dL (33.0-35.0) L 05/15/18 04:20 RDW 17.1 % (11.6-16.5) H 05/15/18 04:20 Plt Count 182 X10^3/uL (150.0-450.0) 05/15/18 04:20 MPV 8.9 fL (7.4-11.0) 05/15/18 04:20 Neut % (Auto) 78.3 % (42.0-75.0) H 05/15/18 04:20 Lymph % (Auto) 11.4 % (21.0-51.0) L 05/15/18 04:20 [place] % (Auto) 8.1 % (0.0-13.0) 05/15/18 04:20 Eos % (Auto) 1.8 % (0.9-2.9) 05/15/18 04:20 Baso % (Auto) 0.4 % (0.2-1.0) 05/15/18 04:20 Neut # (Auto) 5.7 x10^3/uL (2.2-4.8) H 05/15/18 04:20 Lymph # (Auto) 0.8 X10^3/uL (1.3-2.9) L 05/15/18 04:20 [place] # (Auto) 0.6 x10^3/uL (0.3-0.8) 05/15/18 04:20 Eos # (Auto) 0.1 x10^3/uL (0.0-0.2) 05/15/18 04:20 Baso # (Auto) 0.0 X10^3/uL (0.0-0.1) 05/15/18 04:20 Absolute Nucleated RBC 0.1 /100WBC 05/15/18 04:20 Sodium 141 mmol/L (136-145) 05/15/18 04:20 Corrected Sodium 143 mmol/L (136-145) 05/15/18 04:20 Potassium 4.1 mmol/L (3.5-5.1) 05/15/18 04:20 Chloride 104 mmol/L (98-107) 05/15/18 04:20 Carbon Dioxide 27.5 mmol/L (21-32) 05/15/18 04:20 BUN 69 mg/dL (7-18) H 05/15/18 04:20 Creatinine 2.76 mg/dL (0.55-1.02) H 05/15/18 04:20 Est GFR (MDRD) Af Amer 21 (>60) L 05/15/18 04:20 Est GFR (MDRD) Non-Af 17 (>60) L 05/15/18 04:20 Glucose 167 mg/dL (65-99) H 05/15/18 04:20 POC Glucose (mg/dL) 161 mg/dL (65-99) H 05/15/18 12:09 Calcium 9.0 mg/dL (8.5-10.1) 05/15/18 04:20 Corrected Calcium 10.1 mg/dL (8.5-10.1) 05/15/18 04:20 Total Bilirubin 0.50 mg/dL (0.2-1.0) 05/15/18 04:20 AST 20 Units/L (15-37) 05/15/18 04:20 ALT 9 Units/L (12-78) L 05/15/18 04:20 Alkaline Phosphatase 119 Units/L (46-116) H 05/15/18 04:20 Total Protein 6.8 g/dL (6.4-8.2) 05/15/18 04:20 Albumin 2.6 g/dL (3.4-5.0) L 05/15/18 04:20 Globulin 4.2 g/dL (2.5-4.5) 05/15/18 04:20 Albumin/Globulin Ratio 0.6 Ratio (1.1-2.1) L 05/15/18 04:20 Specimen Type Catherized urine 05/11/18 15:20 Urine Color Yellow (YELLOW) 05/11/18 15:20 Urine Appearance Hazy (CLEAR) 05/11/18 15:20 Urine pH 7.0 (5.0 - 8.0) 05/11/18 15:20 Ur Specific [place] 1.010 (1.000-1.030) 05/11/18 15:20 Urine Protein 2+ (NEGATIVE) 05/11/18 15:20 Urine Glucose (UA) Negative (NEGATIVE) 05/11/18 15:20 Urine Ketones Negative (NEGATIVE) 05/11/18 15:20 Urine Occult Blood 1+ (NEGATIVE) 05/11/18 15:20 Urine Nitrite Negative (NEGATIVE) 05/11/18 15:20 Urine Bilirubin Negative (NEGATIVE) 05/11/18 15:20 Urine Urobilinogen Normal (NORMAL) 05/11/18 15:20 Ur Leukocyte Esterase 3+ (NEGATIVE) 05/11/18 15:20 Urine RBC 3-5 /HPF (NONE SEEN) 05/11/18 15:20 Urine WBC 20-30 /HPF (NONE SEEN) 05/11/18 15:20 Ur Squamous Epith Cells Few /HPF (NEGATIVE) 05/11/18 15:20 Urine Bacteria 3+ /HPF (NEGATIVE) 05/11/18 15:20 Urine Mucus Few /HPF (NEGATIVE) 05/11/18 15:20 Ur Culture Indicated? Yes/culture set up 05/11/18 15:20 Hospital Course: 83 BF DIRECT ADMIT ONE DAY AGO FROM [facility] WITH INCREASED CONFUSION, UTI AND ACUTE ON CHRONIC RENAL FAILURE. PT URINE CULTURE + FOR E COLI, GIVEN IV MEROPENEM. PT HAS INCREASED CHEST CONGESTION AND CO COUGH CONTINUED. PT HAS GRADUAL IMPROVEMENT IN RENAL FUNCTION. SYMPTOMS DID IMPROVE. PATIENT WAS DISCHARGED HOME TO BE FOLLOWED ON OP BASIS. - Discharge Plan Disposition: 01 HOME, SELF-CARE Condition: Stable - Follow ups/Referrals Follow ups/Referrals: THAIS PINEDA [Primary Care Provider] - 1 WEEK - Instructions Additional Instructions: CONTINUE ATBX THERAPY FOR UTI RESUME HOME MEDS BP CONTROL, ENCOURAGE ORAL HYDRATION ELEVATED LOWER EXTREMITIES REPEAT CBC CMP Q 2 WEEKS Forms: Patient Portal
== END 2018-05-15 14:45 | disposition home or self-care (01) | DRG 690 ==
LOC: MED/SURG
PROVIDERS: ADMIT Internal Medicine; ATTEND Internal Medicine
DX: E87.5 Hyperkalemia; I50.9 Heart failure, unspecified; I12.9 Hypertensive chronic kidney disease with stage 1 through stage 4 chronic kidney disease, or unspecified chronic kidney disease; M62.81 Muscle weakness (generalized); N18.9 Chronic kidney disease, unspecified; N39.0 Urinary tract infection, site not specified; B96.29 Other Escherichia coli [E. coli] as the cause of diseases classified elsewhere; N17.8 Other acute kidney failure; E03.8 Other specified hypothyroidism; R41.82 Altered mental status, unspecified; J20.8 Acute bronchitis due to other specified organisms; E11.65 Type 2 diabetes mellitus with hyperglycemia
CPT/HCPCS: 36415; 70450; 71010; 71045; 80053; 81001; 85025; 87040; 87086; 87088; 87186; 93005; 93010; 97110; 97112; 97163; 97167; 97535; A4222; S0171; G0378; J0696; J1335; J1815; J7030; J7050

== ENCOUNTER 2019-05-13 14:57 | Inpatient (IN) ==
[2019-05-13] MEDS ORDERED: NS 1000 ML 1,000 ML ONE (15:43)
[2019-05-13] MEDS: NS 1000 ML 1,000 ML IV SCH (16:01)
[2019-05-13] MEDS ORDERED: TYLENOL #3 TAB (W/CODEINE) PO PRN (18:31)
--- NOTE | 2019-05-13 18:40 | DR.H&P ---
H&P - History & Physical for Day of: H&P Date: 05/13/19 - Chief Complaint Chief Complaint: AMS PER SNF STAFF - History of Present Illness History of Present Illness: PT IS 84 BF RESIDENT OF [place] WHO WAS REPORTS FOR CO NEW ONSET ALTERED MENTAL STATUS, UTI. PT HAS PMH OF DM, HTN, CRF, OA, GOUT, CHF. PT UA OBTAINED PRIOR TO ADMISSION WITH +NITRITES, INDICATED C&S. PT ADMITTED FOR TREATMENT OF AMS SUSPECTED DUE TO UTI WITH DEHYDRATION. - Past Medical History Past Medical History: Arthritis, Diabetes, Hypertension, Renal Disease - Past Surgical History Surgical History: Cholecystectomy, Ortho Surgery, Other - Social History Does patient currently use any type of tobacco product: No Have you used tobacco products in the last 12 months: No Type of Tobacco Use: None Does any household member use tobacco: No Alcohol Use: None Drug Use: None - Medications Home Medications: ceftriaxone [From Rocephin] Allergy (Verified 05/12/18 10:31) tramadol Adverse Reaction (Verified 04/28/17 14:27) CONTINUE taking the following medications ascorbic acid (vitamin C) 1 tab PO DAILY 05/13/19 [History] cholecalciferol (vitamin D3) [Vitamin D3] 2 tab PO DAILY 05/13/19 [History] diclofenac sodium [Voltaren] 1 applic TOPICAL QID 05/13/19 [History] ferrous fumarate [Ferrocite] 324 mg PO DAILY 05/13/19 [History] sennosides [Senokot] 1 tab PO DAILY 05/13/19 [History] zinc 1 tab PO DAILY 05/13/19 [History] - Review of Systems Constitutional: Weakness Eyes: No Symptoms Reported ENT: No Symptoms Reported Respiratory: No Symptoms Reported Cardiovascular: Edema Gastrointestinal: No Symptoms Reported Genitourinary: No Symptoms Reported Musculoskeletal: Leg Pain Skin: No Symptoms Reported Neurological: Confusion - Physical Exam Vital Signs: Temperature 97.9 F Pulse Rate [Brachial] 83 Respiratory Rate 20 Blood Pressure [Right Arm] 169/72 Blood Pressure [Left Arm] 133/70 Blood Pressure 106/66 O2 Sat by Pulse Oximetry 94 Oriented: Not Oriented Ear: Normal Nose: Normal Throat: Dry Respiratory: RLL Diminished, LLL Diminished Cardiovascular: Edema. negative: Tachycardia : Normal Auscultation: Bowel Sounds: Normal Palpation: Normal Tenderness: Normal Skin: Decreased Turgur Musculoskeletal: Right, Left, Leg, Back:Lumbar, Swelling Speech Pattern: Inappropriate, Delayed - Assessment/Plan (1) Altered mental status, unspecified Status: Acute Plan: ADMIT, CT HEAD ON ADMISSION. UC AND BLOOD CULTURES. IV HYDRATION WITH STRICT I & S. CXR ON ADMISSION, VERIFY HOME MEDICATION. SSI CONTROL, FSBS. RE PEAT AM LABS, BP AND CARDIAC MONITORING (2) UTI (urinary tract infection) Status: Acute (3) Dehydration Status: Acute (4) Acute on chronic renal failure Status: Acute (5) CHF (congestive heart failure) Status: Chronic (6) Hypertension Status: Chronic - Allergies Allergies/Adverse Reactions: Allergies Allergy/AdvReac Type Severity Reaction Status Date / Time ceftriaxone [From Rocephin] Allergy Verified 05/12/18 10:31 tramadol AdvReac Verified 04/28/17 14:27
[2019-05-13] MEDS ORDERED: INVANZ INJ 1 GM VIAL 1 GM in NS 100 ML IV + SPIKE MINIBAG* 100 ML IV SCH (20:00)
[2019-05-13] MEDS: LIPITOR TAB 40 MG PO SCH (20:53)
[2019-05-13] MEDS: COREG TAB 12.5 MG PO SCH (20:54)
[2019-05-14] MEDS: NS 1000 ML 1,000 ML IV SCH ×2 (05:15→20:29)
[2019-05-14 06:04] LABS: BASOPHILS % (AUTO) 0.4 % (0.2-1.0); EOSINOPHILS # (AUTO) 0.3 x10^3/uL (0.0-0.2); EOSINOPHILS % (AUTO) 7.1 % (0.9-2.9); HEMATOCRIT 36.6 % (36.0-47.0); HEMOGLOBIN 11.7 g/dL (12.0-16.0); LYMPHOCYTES # (AUTO) 1.4 X10^3/uL (1.3-2.9); MEAN CORPUSCULAR HEMOGLOBIN 28.2 pg (27.0-34.0); MEAN CORPUSCULAR HGB CONC 31.9 g/dL (33.0-35.0); MEAN CORPUSCULAR VOLUME 88.3 fL (80.0-100.0); MONOCYTES # (AUTO) 0.4 x10^3/uL (0.3-0.8); MONOCYTES % (AUTO) 8.4 % (0.0-13.0); NEUTROPHILS # (AUTO) 2.2 x10^3/uL (2.2-4.8); NEUTROPHILS % (AUTO) 52.1 % (42.0-75.0); PLATELET COUNT 207 X10^3/uL (150.0-450.0); RED BLOOD COUNT 4.15 X10^6/uL (3.5-5.4); WHITE BLOOD COUNT 4.2 X10^3/uL (3.6-10.0)
[2019-05-14 06:21] LABS: ALBUMIN 2.4 g/dL (3.4-5.0); ALKALINE PHOSPHATASE 102 Units/L (46-116); ASPARTATE AMINO TRANSFERASE 14 Units/L (15-37); BLOOD UREA NITROGEN 69 mg/dL (7-18); CALCIUM 8.9 mg/dL (8.5-10.1); CARBON DIOXIDE 27.1 mmol/L (21-32); CHLORIDE 102 mmol/L (98-107); COR CA(FOR HYPOALB) 10.2 mg/dL (8.5-10.1); CREATININE 3.26 mg/dL (0.55-1.02); SODIUM 137 mmol/L (136-145); TOTAL PROTEIN 6.1 g/dL (6.4-8.2); eGFR NON BLACK RACES 14 (>60)
[2019-05-14 06:28] VITALS: BMI 38.6
[2019-05-14 06:30] LABS: ALANINE AMINOTRANSFERASE 7 Units/L (12-78)
[2019-05-14] MEDS ORDERED: NS 100 ML IV + SPIKE MINIBAG* 100 ML ONE (08:32)
[2019-05-14] MEDS: ASPIRIN EC 81 MG PO SCH (08:37)
[2019-05-14] MEDS: FERROUS GLUCONATE PO SCH (08:37)
[2019-05-14] MEDS: COREG TAB 12.5 MG PO SCH ×2 (08:37→20:31)
[2019-05-14] MEDS: COLACE CAP 100 MG PO SCH (08:38)
[2019-05-14] MEDS: PLAVIX PO SCH (08:38)
[2019-05-14] MEDS: PROTONIX TAB 40 MG PO SCH (08:40)
[2019-05-14] MEDS: SYNTHROID 100 mcg TAB PO SCH (08:46)
[2019-05-14] MEDS: INVANZ INJ 1 GM VIAL 0.5 GM in NS 50 ML IV 50 ML IV SCH (09:31)
[2019-05-14] MEDS: HumuLIN R SUBCUT PRN ×3 (10:48→20:32)
--- NOTE | 2019-05-14 13:27 | PCM.PROG ---
Progress Note - Progress Note for Day of Date of Exam: 05/14/19 - Subjective Subjective: 84 BF ADMITTED ON 05/13 FROM [facility] / [facility] WITH AMS DUE TO UTI AND DEHYDRATION WITH ACUTE ON CHRONIC RENAL FAILURE. PT WAS STARTED ON GENTLE IV HYDRATION WITH STRICT I & OS, IV INVANZ WITH BLOOD AND URINE CULTURES PENDING. PT IS MORE AWAKE AND ALERT THIS AM, RECOGNIZED ME ON EXAMINATION. PT HAD IMPROVING BILATERAL LE EDEMA. PT [id number], CREAT 3.26 - Past Medical Family Social History Past Med/Fam/Surg Hx: No changes since H&P Allergies: Allergies ceftriaxone [From Rocephin] Allergy (Verified 05/12/18 10:31) tramadol Adverse Reaction (Verified 04/28/17 14:27) - Review of Systems ROS: No change since H&P - Vital Signs and I&O's Vital Signs: Temperature 97.6 F Pulse Rate [Brachial] 90 Respiratory Rate 19 Blood Pressure [Right Arm] 131/61 Blood Pressure [Left Arm] 177/80 Blood Pressure 106/66 O2 Sat by Pulse Oximetry 100 Intake and Output: Intake & Output 05/12/19 05/13/19 05/14/19 05/15/19 11:59 11:59 11:59 11:59 Intake Total 290 / 290 Balance 290 / 290 - Physical Exam Oriented: Not Oriented Ear: Normal Nose: Normal Throat: Dry Respiratory: Diminished Cardiovascular: Edema. negative: Tachycardia : Normal Auscultation: Bowel Sounds: Normal Tenderness: Normal Skin: Decreased Turgur Musculoskeletal: Right, Left, Leg, Back:Lumbar, Swelling Psychiatric: Anxiety Mood Description: Calm Speech Pattern: Clear, Appropriate - Laboratory and Diagnostics Result Diagrams: 05/14/19 05:17 05/14/19 05:17 Labs: Laboratory WBC 4.2 X10^3/uL (3.6-10.0) 05/14/19 05:17 RBC 4.15 X10^6/uL (3.5-5.4) 05/14/19 05:17 Hgb 11.7 g/dL (12.0-16.0) L 05/14/19 05:17 Hct 36.6 % (36.0-47.0) 05/14/19 05:17 MCV 88.3 fL (80.0-100.0) 05/14/19 05:17 MCH 28.2 pg (27.0-34.0) 05/14/19 05:17 MCHC 31.9 g/dL (33.0-35.0) L 05/14/19 05:17 RDW 19.0 % (11.6-16.5) H 05/14/19 05:17 Plt Count 207 X10^3/uL (150.0-450.0) 05/14/19 05:17 MPV 8.0 fL (7.4-11.0) 05/14/19 05:17 Neut % (Auto) 52.1 % (42.0-75.0) 05/14/19 05:17 Lymph % (Auto) 32.0 % (21.0-51.0) 05/14/19 05:17 [place] % (Auto) 8.4 % (0.0-13.0) 05/14/19 05:17 Eos % (Auto) 7.1 % (0.9-2.9) H 05/14/19 05:17 Baso % (Auto) 0.4 % (0.2-1.0) 05/14/19 05:17 Neut # (Auto) 2.2 x10^3/uL (2.2-4.8) 05/14/19 05:17 Lymph # (Auto) 1.4 X10^3/uL (1.3-2.9) 05/14/19 05:17 [place] # (Auto) 0.4 x10^3/uL (0.3-0.8) 05/14/19 05:17 Eos # (Auto) 0.3 x10^3/uL (0.0-0.2) H 05/14/19 05:17 Baso # (Auto) 0.0 X10^3/uL (0.0-0.1) 05/14/19 05:17 Absolute Nucleated RBC 0.2 /100WBC 05/14/19 05:17 INR Target Range - 05/13/19 16:30 INR 1.04 (0.8-1.3) 05/13/19 16:30 Sodium 137 mmol/L (136-145) 05/14/19 05:17 Corrected Sodium TNP 05/14/19 05:17 Potassium 4.6 mmol/L (3.5-5.1) 05/14/19 05:17 Chloride 102 mmol/L (98-107) 05/14/19 05:17 Carbon Dioxide 27.1 mmol/L (21-32) 05/14/19 05:17 BUN 69 mg/dL (7-18) H 05/14/19 05:17 Creatinine 3.26 mg/dL (0.55-1.02) H 05/14/19 05:17 Est GFR (MDRD) Af Amer 17 (>60) L 05/14/19 05:17 Est GFR (MDRD) Non-Af 14 (>60) L 05/14/19 05:17 Glucose 100 mg/dL (65-99) H 05/14/19 05:17 Lactic Acid 1.3 mmol/L (0.4-2.0) 05/13/19 16:30 Calcium 8.9 mg/dL (8.5-10.1) 05/14/19 05:17 Corrected Calcium 10.2 mg/dL (8.5-10.1) H 05/14/19 05:17 Total Bilirubin 0.30 mg/dL (0.2-1.0) 05/14/19 05:17 AST 14 Units/L (15-37) L 05/14/19 05:17 ALT 7 Units/L (12-78) L 05/14/19 05:17 Alkaline Phosphatase 102 Units/L (46-116) 05/14/19 05:17 Total Protein 6.1 g/dL (6.4-8.2) L 05/14/19 05:17 Albumin 2.4 g/dL (3.4-5.0) L 05/14/19 05:17 Globulin 3.7 g/dL (2.5-4.5) 05/14/19 05:17 Albumin/Globulin Ratio 0.6 Ratio (1.1-2.1) L 05/14/19 05:17 - Plan (1) Altered mental status, unspecified Status: Acute Plan: CT HEAD ON ADMISSION NEGATIVE FOR ACUTE FINDINGS. UC AND BLOOD CULTURES. IV HYDRATION WITH STRICT I & S. CXR Q AM,. VERIFY HOME MEDICATION. SSI CONTROL, FSBS. REPEAT AM LABS, BP AND CARDIAC MONITORING (2) UTI (urinary tract infection) Status: Acute (3) Dehydration Status: Acute (4) Acute on chronic renal failure Status: Acute (5) CHF (congestive heart failure) Status: Chronic (6) Hypertension Status: Chronic
[2019-05-14] MEDS ORDERED: PHARMACY CONSULT - DOSE _____ XX SCH (14:00)
[2019-05-14] MEDS ORDERED: LOVENOX INJ 40 MG SYR SC SCH (15:00)
[2019-05-14] MEDS: LOVENOX INJ 30 MG SYR SC SCH (15:53)
[2019-05-14] MEDS: XOPENEX 1.25 MG/3 ML NEBULE NEB SCH ×2 (17:00→20:27)
[2019-05-14] MEDS: LIPITOR TAB 40 MG PO SCH (20:31)
[2019-05-14] MEDS: SNACK - Diabetic Appropriate PO SCH (20:32)
[2019-05-15] MEDS: XOPENEX 1.25 MG/3 ML NEBULE NEB SCH ×4 (05:00→21:00)
[2019-05-15] MEDS: HumuLIN R SUBCUT PRN ×2 (05:30→11:12)
[2019-05-15 06:11] LABS: BASOPHILS % (AUTO) 0.8 % (0.2-1.0); EOSINOPHILS # (AUTO) 0.2 x10^3/uL (0.0-0.2); EOSINOPHILS % (AUTO) 4.5 % (0.9-2.9); HEMATOCRIT 38.4 % (36.0-47.0); HEMOGLOBIN 12.1 g/dL (12.0-16.0); LYMPHOCYTES # (AUTO) 1.1 X10^3/uL (1.3-2.9); LYMPHOCYTES % (AUTO) 22.4 % (21.0-51.0); MEAN CORPUSCULAR HEMOGLOBIN 28.6 pg (27.0-34.0); MEAN CORPUSCULAR HGB CONC 31.6 g/dL (33.0-35.0); MEAN CORPUSCULAR VOLUME 90.4 fL (80.0-100.0); MEAN PLATELET VOLUME 8.3 fL (7.4-11.0); MONOCYTES # (AUTO) 0.4 x10^3/uL (0.3-0.8); MONOCYTES % (AUTO) 8.3 % (0.0-13.0); NEUTROPHILS # (AUTO) 3.3 x10^3/uL (2.2-4.8); PLATELET COUNT 192 X10^3/uL (150.0-450.0); RED BLOOD COUNT 4.24 X10^6/uL (3.5-5.4); RED CELL DISTRIBUTION WIDTH 19.2 % (11.6-16.5); WHITE BLOOD COUNT 5.1 X10^3/uL (3.6-10.0)
[2019-05-15 06:28] LABS: ALANINE AMINOTRANSFERASE < 6 Units/L (12-78); ALBUMIN 2.4 g/dL (3.4-5.0); ALKALINE PHOSPHATASE 104 Units/L (46-116); ASPARTATE AMINO TRANSFERASE 16 Units/L (15-37); BLOOD UREA NITROGEN 67 mg/dL (7-18); CARBON DIOXIDE 22.7 mmol/L (21-32); CHLORIDE 102 mmol/L (98-107); COR CA(FOR HYPOALB) 10.3 mg/dL (8.5-10.1); COR NA(FOR HYPERGLY) 137 mmol/L (136-145); CREATININE 3.21 mg/dL (0.55-1.02); SODIUM 135 mmol/L (136-145); TOTAL PROTEIN 6.1 g/dL (6.4-8.2); eGFR NON BLACK RACES 15 (>60)
[2019-05-15] MEDS: LOVENOX INJ 30 MG SYR SC SCH (09:03)
[2019-05-15] MEDS: COREG TAB 12.5 MG PO SCH ×2 (09:03→23:01)
[2019-05-15] MEDS: COLACE CAP 100 MG PO SCH (09:03)
[2019-05-15] MEDS: PLAVIX PO SCH (09:03)
[2019-05-15] MEDS: ASPIRIN EC 81 MG PO SCH (09:04)
[2019-05-15] MEDS: MILK OF MAGNESIA PO SCH ×2 (09:04→23:01)
[2019-05-15] MEDS: SYNTHROID 100 mcg TAB PO SCH (09:04)
[2019-05-15] MEDS: PROTONIX TAB 40 MG PO SCH (09:04)
[2019-05-15] MEDS: FERROUS GLUCONATE PO SCH (09:04)
[2019-05-15] MEDS: INVANZ INJ 1 GM VIAL 0.5 GM in NS 50 ML IV 50 ML IV SCH (09:04)
[2019-05-15] MEDS: NS 1000 ML 1,000 ML IV SCH ×2 (13:30→14:31)
[2019-05-15 15:25] LABS: BILIRUBIN,URINE NEGATIVE (NEGATIVE); BLOOD/HEMOGLOBIN,URINE 1+ (NEGATIVE); GLUCOSE, URINE NEGATIVE (NEGATIVE); KETONES,URINE NEGATIVE (NEGATIVE); LEUKOCYTE ESTERASE ,URINE 3+ (NEGATIVE); NITRITES,URINE NEGATIVE (NEGATIVE); PROTEIN,URINE 2+ (NEGATIVE); UROBILINOGEN,URINE NORMAL (NORMAL)
[2019-05-15 15:32] LABS: APPEARANCE,URINE HAZY (CLEAR); COLOR,URINE PALE YELLOW (YELLOW)
[2019-05-15 15:39] LABS: BACTERIA,URINE 1+ /HPF (NEGATIVE); SQUAMOUS EPITHELIAL CELL,UR FEW /HPF (NEGATIVE)
[2019-05-15] MEDS: SNACK - Diabetic Appropriate PO SCH (23:00)
[2019-05-15] MEDS: LIPITOR TAB 40 MG PO SCH (23:01)
[2019-05-16] MEDS: NS 1000 ML 1,000 ML IV SCH ×2 (02:32→13:20)
[2019-05-16 05:18] LABS: BASOPHILS % (AUTO) 0.6 % (0.2-1.0); EOSINOPHILS # (AUTO) 0.2 x10^3/uL (0.0-0.2); EOSINOPHILS % (AUTO) 4.5 % (0.9-2.9); HEMATOCRIT 38.1 % (36.0-47.0); HEMOGLOBIN 11.8 g/dL (12.0-16.0); LYMPHOCYTES # (AUTO) 1.1 X10^3/uL (1.3-2.9); LYMPHOCYTES % (AUTO) 22.4 % (21.0-51.0); MEAN CORPUSCULAR HEMOGLOBIN 27.9 pg (27.0-34.0); MEAN CORPUSCULAR HGB CONC 30.9 g/dL (33.0-35.0); MEAN CORPUSCULAR VOLUME 90.4 fL (80.0-100.0); MEAN PLATELET VOLUME 8.7 fL (7.4-11.0); MONOCYTES # (AUTO) 0.4 x10^3/uL (0.3-0.8); MONOCYTES % (AUTO) 8.7 % (0.0-13.0); NEUTROPHILS % (AUTO) 63.8 % (42.0-75.0); PLATELET COUNT 201 X10^3/uL (150.0-450.0); RED BLOOD COUNT 4.21 X10^6/uL (3.5-5.4); RED CELL DISTRIBUTION WIDTH 18.8 % (11.6-16.5); WHITE BLOOD COUNT 4.8 X10^3/uL (3.6-10.0)
[2019-05-16] MEDS: XOPENEX 1.25 MG/3 ML NEBULE NEB SCH ×3 (05:30→16:48)
[2019-05-16 05:38] LABS: ALANINE AMINOTRANSFERASE < 6 Units/L (12-78); ALBUMIN 2.4 g/dL (3.4-5.0); ALKALINE PHOSPHATASE 105 Units/L (46-116); BLOOD UREA NITROGEN 66 mg/dL (7-18); CARBON DIOXIDE 22.5 mmol/L (21-32); CHLORIDE 102 mmol/L (98-107); COR CA(FOR HYPOALB) 10.3 mg/dL (8.5-10.1); COR NA(FOR HYPERGLY) 138 mmol/L (136-145); CREATININE 3.07 mg/dL (0.55-1.02); SODIUM 137 mmol/L (136-145); TOTAL PROTEIN 6.2 g/dL (6.4-8.2); eGFR NON BLACK RACES 15 (>60)
[2019-05-16 06:04] LABS: ASPARTATE AMINO TRANSFERASE 26 Units/L (15-37)
[2019-05-16] MEDS: COREG TAB 12.5 MG PO SCH (08:43)
[2019-05-16] MEDS: SYNTHROID 100 mcg TAB PO SCH (08:43)
[2019-05-16] MEDS: ASPIRIN EC 81 MG PO SCH (08:43)
[2019-05-16] MEDS: PROTONIX TAB 40 MG PO SCH (08:43)
[2019-05-16] MEDS: INVANZ INJ 1 GM VIAL 0.5 GM in NS 50 ML IV 50 ML IV SCH (08:43)
[2019-05-16] MEDS: COLACE CAP 100 MG PO SCH (08:43)
[2019-05-16] MEDS: FERROUS GLUCONATE PO SCH (08:43)
[2019-05-16] MEDS: MILK OF MAGNESIA PO SCH (08:46)
[2019-05-16] MEDS: LOVENOX INJ 30 MG SYR SC SCH (08:52)
[2019-05-16] MEDS: PLAVIX PO SCH (08:52)
[2019-05-16 17:01] VITALS: BP 124/60
[2019-05-16] MEDS ORDERED: COLACE CAP 100 MG PO SCH (21:00)
== END 2019-05-16 17:35 | disposition short-term general hospital (02) | DRG 690 ==
LOC: MED/SURG → OBSVTOIN 05-15 08:00 → INTOOBSV 05-15 08:00 → UNDODISIN 05-16 17:35
PROVIDERS: ADMIT Internal Medicine; ATTEND Internal Medicine
DX: R41.82 Altered mental status, unspecified; N39.0 Urinary tract infection, site not specified; M19.90 Unspecified osteoarthritis, unspecified site; E11.22 Type 2 diabetes mellitus with diabetic chronic kidney disease; E87.1 Hypo-osmolality and hyponatremia; R94.4 Abnormal results of kidney function studies; E11.65 Type 2 diabetes mellitus with hyperglycemia; N18.9 Chronic kidney disease, unspecified; N17.8 Other acute kidney failure; I12.9 Hypertensive chronic kidney disease with stage 1 through stage 4 chronic kidney disease, or unspecified chronic kidney disease; E86.0 Dehydration
CPT/HCPCS: 36415; 70450; 71010; 71045; 80053; 81001; 83605; 85025; 85610; 87040; 87086; 87088; 87186; 93005; 94640; 94760; A4222; G0378; J1335; J1650; J1815; J7030; J7050

== ENCOUNTER 2019-07-12 11:31 | Inpatient (IN) ==
[2019-07-12 14:18] LABS: BILIRUBIN,URINE NEGATIVE (NEGATIVE); BLOOD/HEMOGLOBIN,URINE 4+ (NEGATIVE); GLUCOSE, URINE NEGATIVE (NEGATIVE); KETONES,URINE NEGATIVE (NEGATIVE); LEUKOCYTE ESTERASE ,URINE 3+ (NEGATIVE); NITRITES,URINE NEGATIVE (NEGATIVE); PROTEIN,URINE 3+ (NEGATIVE); UROBILINOGEN,URINE NORMAL (NORMAL)
[2019-07-12] MEDS ORDERED: XOPENEX 1.25 MG/3 ML NEBULE NEB PRN (14:25)
[2019-07-12 14:30] LABS: APPEARANCE,URINE CLOUDY (CLEAR); COLOR,URINE YELLOW (YELLOW); RBC,URINE 20-30 /HPF (0-3); SQUAMOUS EPITHELIAL CELL,UR RARE /HPF (NEGATIVE)
[2019-07-12 14:31] LABS: BACTERIA,URINE 3+ /HPF (NEGATIVE); CALCIUM OXALATE CRYSTALS,UR FEW /HPF (NEGATIVE)
[2019-07-12 14:48] VITALS: BMI 44.1
[2019-07-12 14:53] LABS: BASOPHILS % (AUTO) 0.3 % (0.2-1.0); EOSINOPHILS # (AUTO) 0.1 x10^3/uL (0.0-0.2); HEMOGLOBIN 8.8 g/dL (12.0-16.0); LYMPHOCYTES # (AUTO) 0.8 X10^3/uL (1.3-2.9); LYMPHOCYTES % (AUTO) 15.5 % (21.0-51.0); MEAN CORPUSCULAR HEMOGLOBIN 27.7 pg (27.0-34.0); MEAN CORPUSCULAR HGB CONC 31.3 g/dL (33.0-35.0); MEAN CORPUSCULAR VOLUME 88.4 fL (80.0-100.0); MEAN PLATELET VOLUME 8.7 fL (7.4-11.0); MONOCYTES # (AUTO) 0.4 x10^3/uL (0.3-0.8); MONOCYTES % (AUTO) 8.4 % (0.0-13.0); NEUTROPHILS # (AUTO) 3.7 x10^3/uL (2.2-4.8); NEUTROPHILS % (AUTO) 73.8 % (42.0-75.0); PLATELET COUNT 150 X10^3/uL (150.0-450.0); RED BLOOD COUNT 3.17 X10^6/uL (3.5-5.4); RED CELL DISTRIBUTION WIDTH 17.4 % (11.6-16.5)
[2019-07-12 14:57] LABS: ALBUMIN 2.3 g/dL (3.4-5.0); CARBON DIOXIDE 26.3 mmol/L (21-32); COR CA(FOR HYPOALB) 10.4 mg/dL (8.5-10.1); CREATININE 3.52 mg/dL (0.55-1.02)
[2019-07-12] MEDS: NS 1000 ML 1,000 ML IV SCH (15:13)
--- NOTE | 2019-07-12 17:55 | DR.H&P ---
H&P - History & Physical for Day of: H&P Date: 07/12/19 - Chief Complaint Chief Complaint: AMS, DIFFICULT TO AROUSE, LABORED RESPIRATIONS, CHEST CONGESTION - History of Present Illness History of Present Illness: 84 BF RESIDENT OF [facility] / [facility], DIRECT ADMIT FOR CO AMS, DIFFICULT TO AROUSE PER FAMILY AND NURSING STAFF. PT HAD OUTPT LABS ON FRIDAY PER DR PINEDA WITH ABG AND CHEST XRAY. PT HAS HX OF END STAGE RENAL DISEASE. PT HAS HAD INCREASED CHEST CONGESTION, ON CURRENTLY COMPLETED ANTIBIOTICS, ON DIURETICS AND SUPPLEMENTAL O2. PT HAD INCREASED DIFFUSE LOWER EXTREMITY EDEMA. PT HAD CT HEAD W/O ACUTE FINDINGS. - Past Medical History Past Medical History: Arthritis, Diabetes, Hypertension, Renal Disease - Past Surgical History Surgical History: Cholecystectomy, Ortho Surgery, Other - Social History Does patient currently use any type of tobacco product: No Have you used tobacco products in the last 12 months: No Type of Tobacco Use: None Alcohol Use: None Drug Use: None - Medications Home Medications: ceftriaxone [From Rocephin] Allergy (Verified 05/12/18 10:31) tramadol Adverse Reaction (Verified 04/28/17 14:27) CONTINUE taking the following medications budesonide 0.5 mg INHALATION BID 07/12/19 [History] dextromethorphan-guaifenesin [Robitussin Cough-Chest Brock DM] 10 ml PO Q4-8H PRN 07/12/19 [History] doxycycline hyclate 100 mg PO BID 07/12/19 [History] enoxaparin [Lovenox] 30 mg SUBCUT DAILY 07/12/19 [History] famotidine [Pepcid] 20 mg PO BID 07/12/19 [History] furosemide [Lasix] 40 mg PO QAM 07/12/19 [History] ipratropium-albuterol 3 ml INHALATION QID 07/12/19 [History] - Review of Systems Constitutional: Weakness, Malaise Eyes: No Symptoms Reported ENT: No Symptoms Reported Respiratory: Cough, Shortness of Breath, Wheezing Cardiovascular: Edema Gastrointestinal: Nausea Musculoskeletal: No Symptoms Reported Skin: No Symptoms Reported Neurological: Weakness, Confusion, Other (LETHARGIC) - Physical Exam Vital Signs: Temperature 96.9 F Pulse Rate 63 Respiratory Rate 10 Blood Pressure [Right Arm] 124/60 Blood Pressure [Left Arm] 156/74 Blood Pressure 110/53 O2 Sat by Pulse Oximetry 100 Oriented: Person (OPENS EYE TO HER NAME) Eyes: Normal Ear: Normal Nose: Normal Throat: Dry Respiratory: Diminished Throughout Cardiovascular: Edema : Normal Auscultation: Bowel Sounds: Normal Palpation: Normal Tenderness: Normal Skin: Decreased Turgur Musculoskeletal: Right, Left, Shoulder, Leg, Tender (RIGHT SHOULDER), Motor Deficit, Sensory Deficit Psychiatric: Depression Affect: Flat Speech Pattern: Inappropriate, Delayed - Assessment/Plan (1) Altered mental status, unspecified Status: Acute Plan: ADMIT, CT HEAD OBTAINED ON 07/11. BLOOD AND URINE CULTURES. REPEAT AM CXR. JIMENEZ CATH, STRICT I & OS. GENTLE IV HYDRATION, IV DIURETICS PRN. TELEMETRY, REPEAT ABD ON 07/12 PRIOR TO ADMISSION, PRN BIPAP THERAPY (2) Acute on chronic renal failure Status: Acute (3) CHF (congestive heart failure) Status: Chronic (4) Chronic kidney disease (CKD) Status: Chronic (5) GERD (gastroesophageal reflux disease) Status: Chronic (6) Hypertension Status: Chronic (7) Hypothyroidism Status: Chronic - Allergies Allergies/Adverse Reactions: Allergies Allergy/AdvReac Type Severity Reaction Status Date / Time ceftriaxone [From Rocephin] Allergy Verified 05/12/18 10:31 tramadol AdvReac Verified 04/28/17 14:27
[2019-07-12] MEDS ORDERED: LASIX IVP SCH (18:00)
[2019-07-12 18:17] LABS: CKMB % 4.6 % (<4); CREATINE KINASE 22 Units/L (26-192); CREATINE KINASE MB < 1.0 ng/mL (0-4.0); TROPONIN I < 0.02 ng/mL (0-1.5)
[2019-07-12] MEDS ORDERED: PHARMACY CONSULT - DOSE _____ XX SCH (19:00)
[2019-07-12] MEDS: DUONEB 0.5 MG/3 MG IN SCH (20:49)
[2019-07-12] MEDS: PULMICORT NEB TX 0.5 MG NEB SCH (20:49)
[2019-07-12] MEDS: COREG TAB 12.5 MG PO SCH (20:51)
[2019-07-12] MEDS: LIPITOR TAB 40 MG PO SCH (20:52)
[2019-07-12] MEDS ORDERED: MERREM VIAL ONE (20:57)
[2019-07-12] MEDS ORDERED: MERREM PREMIX IV 500 MG 500 MG/50 ML BAG IV SCH (21:00)
[2019-07-12] MEDS: MERREM VIAL IVP SCH (21:03)
[2019-07-13] MEDS: NS 1000 ML 1,000 ML IV SCH ×2 (02:14→20:18)
--- NOTE | 2019-07-13 06:18 | RAD ---
HISTORY: Shortness of breath Study: Chest AP portable Comparison: 07/11/2019 Findings: The heart remains enlarged. Pulmonary venous congestion is present. Mild volume loss is present in the right upper lobe as evidence by upward bowing of the minor fissure. No right lung infiltrates are present. There is left perihilar infiltrate and left basilar infiltrates now present. A left pleural effusion is suspected. The bony thorax is unremarkable. IMPRESSION: Moderate cardiomegaly with pulmonary venous congestion Left perihilar and left basilar infiltrates more prominent Mild right upper lobe volume loss as evidence by upward bowing of the minor fissure Reported By:
[2019-07-13 06:32] LABS: ALBUMIN 2.1 g/dL (3.4-5.0); CALCIUM 8.9 mg/dL (8.5-10.1); COR CA(FOR HYPOALB) 10.4 mg/dL (8.5-10.1); CREATININE 3.45 mg/dL (0.55-1.02)
[2019-07-13 06:48] LABS: BASOPHILS % (AUTO) 0.4 % (0.2-1.0); EOSINOPHILS # (AUTO) 0.1 x10^3/uL (0.0-0.2); EOSINOPHILS % (AUTO) 2.5 % (0.9-2.9); HEMATOCRIT 29.7 % (36.0-47.0); HEMOGLOBIN 9.2 g/dL (12.0-16.0); LYMPHOCYTES # (AUTO) 0.9 X10^3/uL (1.3-2.9); LYMPHOCYTES % (AUTO) 19.9 % (21.0-51.0); MEAN CORPUSCULAR HEMOGLOBIN 27.5 pg (27.0-34.0); MEAN CORPUSCULAR HGB CONC 30.9 g/dL (33.0-35.0); MEAN PLATELET VOLUME 9.6 fL (7.4-11.0); MONOCYTES # (AUTO) 0.4 x10^3/uL (0.3-0.8); MONOCYTES % (AUTO) 10.2 % (0.0-13.0); NEUTROPHILS # (AUTO) 2.9 x10^3/uL (2.2-4.8); PLATELET COUNT 127 X10^3/uL (150.0-450.0); RED BLOOD COUNT 3.34 X10^6/uL (3.5-5.4); RED CELL DISTRIBUTION WIDTH 17.7 % (11.6-16.5); WHITE BLOOD COUNT 4.3 X10^3/uL (3.6-10.0)
[2019-07-13] MEDS: DUONEB 0.5 MG/3 MG IN SCH ×4 (09:17→20:19)
[2019-07-13] MEDS: PULMICORT NEB TX 0.5 MG NEB SCH ×2 (09:17→20:19)
[2019-07-13] MEDS: MERREM VIAL IVP SCH ×2 (09:29→20:43)
[2019-07-13] MEDS: PLAVIX PO SCH (09:29)
[2019-07-13] MEDS: COLACE CAP 100 MG PO SCH (09:29)
[2019-07-13] MEDS: COREG TAB 12.5 MG PO SCH ×2 (09:29→20:43)
[2019-07-13] MEDS: SYNTHROID 100 mcg TAB PO SCH (09:30)
[2019-07-13] MEDS ORDERED: PHARMACY CONSULT - DOSE _____ XX SCH (11:00)
[2019-07-13] MEDS ORDERED: LASIX IVP SCH (13:00)
[2019-07-13] MEDS: LOVENOX INJ 30 MG SYR SC SCH (13:32)
[2019-07-13] MEDS ORDERED: SALINE 3% 15 ML NEB TX NEB ONE (13:54)
[2019-07-13] MEDS ORDERED: XYLOCAINE 1 % (PLAIN) ONE (14:00)
[2019-07-13] MEDS: ZITHROMAX INJ 500 MG VIAL 250 MG in NS 250 ML IV 250 ML IV SCH (14:41)
--- NOTE | 2019-07-13 14:58 | RAD ---
History: Central line placement Study: AP chest Comparison: This morning at 6:18 a.m. Findings: There is a new right subclavian line the tip in the distal SVC, projecting into the right atrium. There is limited inspiration overall with subsegmental atelectasis in the left mid lung and chronic diffuse interstitial changes. The heart is enlarged. There is mild vascular congestion. Impression: 1. Satisfactory right central line placement 2. Unchanged cardiomegaly and vascular congestion and left mid lung subsegmental atelectasis with overall limited inspiration. Reported By:
[2019-07-13] MEDS ORDERED: BUTT CREAM (COMPOUND) ONE (17:40)
[2019-07-13] MEDS ORDERED: BUTT CREAM (COMPOUND) TOP PRN (17:43)
[2019-07-13] MEDS: LIPITOR TAB 40 MG PO SCH (20:43)
[2019-07-14] MEDS: NS 1000 ML 1,000 ML IV SCH ×3 (05:24→20:42)
[2019-07-14 06:11] LABS: BASOPHILS % (AUTO) 0.4 % (0.2-1.0); EOSINOPHILS # (AUTO) 0.1 x10^3/uL (0.0-0.2); EOSINOPHILS % (AUTO) 2.5 % (0.9-2.9); HEMATOCRIT 27.1 % (36.0-47.0); HEMOGLOBIN 8.6 g/dL (12.0-16.0); LYMPHOCYTES # (AUTO) 0.7 X10^3/uL (1.3-2.9); LYMPHOCYTES % (AUTO) 21.9 % (21.0-51.0); MEAN CORPUSCULAR HEMOGLOBIN 27.8 pg (27.0-34.0); MEAN CORPUSCULAR HGB CONC 31.6 g/dL (33.0-35.0); MEAN PLATELET VOLUME 8.8 fL (7.4-11.0); MONOCYTES # (AUTO) 0.3 x10^3/uL (0.3-0.8); MONOCYTES % (AUTO) 7.5 % (0.0-13.0); NEUTROPHILS # (AUTO) 2.3 x10^3/uL (2.2-4.8); NEUTROPHILS % (AUTO) 67.7 % (42.0-75.0); PLATELET COUNT 137 X10^3/uL (150.0-450.0); RED BLOOD COUNT 3.08 X10^6/uL (3.5-5.4); RED CELL DISTRIBUTION WIDTH 17.3 % (11.6-16.5); WHITE BLOOD COUNT 3.4 X10^3/uL (3.6-10.0)
[2019-07-14 06:20] LABS: CALCIUM 8.5 mg/dL (8.5-10.1); CARBON DIOXIDE 25.3 mmol/L (21-32); COR CA(FOR HYPOALB) 10.1 mg/dL (8.5-10.1); CREATININE 3.57 mg/dL (0.55-1.02); TOTAL PROTEIN 5.5 g/dL (6.4-8.2)
[2019-07-14] MEDS ORDERED: NS 100 ML IV + SPIKE MINIBAG* 100 ML IV ONE (08:40)
[2019-07-14] MEDS: DUONEB 0.5 MG/3 MG IN SCH ×4 (08:55→20:30)
[2019-07-14] MEDS: PULMICORT NEB TX 0.5 MG NEB SCH ×2 (08:55→20:30)
[2019-07-14] MEDS: COLACE CAP 100 MG PO SCH (09:26)
[2019-07-14] MEDS: LOVENOX INJ 30 MG SYR SC SCH (09:26)
[2019-07-14] MEDS: COREG TAB 12.5 MG PO SCH ×2 (09:26→20:30)
[2019-07-14] MEDS: SYNTHROID 100 mcg TAB PO SCH (09:28)
[2019-07-14] MEDS: MERREM VIAL IVP SCH ×2 (09:28→20:30)
[2019-07-14] MEDS: ZITHROMAX INJ 500 MG VIAL 250 MG in NS 250 ML IV 250 ML IV SCH (09:29)
[2019-07-14] MEDS: PLAVIX PO SCH (09:29)
[2019-07-14] MEDS: ROBITUSSIN DM PO PRN (18:02)
[2019-07-14] MEDS: LIPITOR TAB 40 MG PO SCH (20:29)
[2019-07-15 06:24] LABS: BASOPHILS % (AUTO) 0.3 % (0.2-1.0); EOSINOPHILS # (AUTO) 0.1 x10^3/uL (0.0-0.2); EOSINOPHILS % (AUTO) 2.2 % (0.9-2.9); HEMATOCRIT 26.9 % (36.0-47.0); HEMOGLOBIN 8.5 g/dL (12.0-16.0); LYMPHOCYTES # (AUTO) 0.9 X10^3/uL (1.3-2.9); LYMPHOCYTES % (AUTO) 27.3 % (21.0-51.0); MEAN CORPUSCULAR HEMOGLOBIN 27.7 pg (27.0-34.0); MEAN CORPUSCULAR HGB CONC 31.6 g/dL (33.0-35.0); MEAN CORPUSCULAR VOLUME 87.8 fL (80.0-100.0); MONOCYTES # (AUTO) 0.3 x10^3/uL (0.3-0.8); MONOCYTES % (AUTO) 8.2 % (0.0-13.0); PLATELET COUNT 142 X10^3/uL (150.0-450.0); RED BLOOD COUNT 3.07 X10^6/uL (3.5-5.4); WHITE BLOOD COUNT 3.3 X10^3/uL (3.6-10.0)
[2019-07-15 06:35] LABS: ALANINE AMINOTRANSFERASE 12 Units/L (12-78); ALKALINE PHOSPHATASE 91 Units/L (46-116); ASPARTATE AMINO TRANSFERASE 12 Units/L (15-37); BLOOD UREA NITROGEN 57 mg/dL (7-18); CALCIUM 8.3 mg/dL (8.5-10.1); CARBON DIOXIDE 25.4 mmol/L (21-32); CHLORIDE 100 mmol/L (98-107); SODIUM 133 mmol/L (136-145); TOTAL PROTEIN 5.5 g/dL (6.4-8.2); eGFR NON BLACK RACES 12 (>60)
[2019-07-15 06:40] LABS: COR CA(FOR HYPOALB) 9.9 mg/dL (8.5-10.1)
[2019-07-15] MEDS ORDERED: NS 100 ML IV + SPIKE MINIBAG* 100 ML IV ONE (08:15)
[2019-07-15] MEDS: PULMICORT NEB TX 0.5 MG NEB SCH ×2 (08:41→20:08)
[2019-07-15] MEDS: DUONEB 0.5 MG/3 MG IN SCH ×4 (08:41→20:08)
[2019-07-15] MEDS: COREG TAB 12.5 MG PO SCH ×2 (09:24→21:11)
[2019-07-15] MEDS: SYNTHROID 100 mcg TAB PO SCH (09:24)
[2019-07-15] MEDS: MERREM VIAL IVP SCH ×2 (09:24→21:11)
[2019-07-15] MEDS: COLACE CAP 100 MG PO SCH (09:25)
[2019-07-15] MEDS: PLAVIX PO SCH (09:26)
[2019-07-15] MEDS: LOVENOX INJ 30 MG SYR SC SCH (09:26)
[2019-07-15] MEDS: ROBITUSSIN DM PO PRN (09:47)
--- NOTE | 2019-07-15 11:36 | RAD ---
History: Shortness of breath Study: Upright portable AP chest Comparison: July 13, 2019 Findings: There is improvement in the lungs with resolution of atelectasis in the left mid lung. There is mild thickening of the minor fissure. The heart size is prominent. There is an unchanged right subclavian line. There is improved vascular congestion. The costophrenic angles are indistinct suggesting small effusions. Impression: Probable small bilateral pleural effusions. Improving vascular congestion. Reported By:
--- NOTE | 2019-07-15 13:32 | PCM.PROG ---
Progress Note - Progress Note for Day of Date of Exam: 07/13/19 - Subjective Subjective: 84 BF DIRECT ADMIT FROM [facility] / [facility] WITH REPORTS PER FAMILY AND NURSING STAFF PT HAS INCREASED LETHARGY AND AMS. PT HAD CT HEAD W/O ACUTE FINDINGS. PT HAD UC AND BC OBTAINED ON ADMISSION AND ABG. PT REFUSED REPEAT ABG THIS AM. PT WAS STARTED ON [place] FOR UTI WITH CULTURE PENDING. PT IS AWAKE AND ALERT THIS AM, HAS CO PAIN TO HER BUTTOCKS WITHOUT VISIBLE WOUND. PT HAD DIFFUSE DIMINISHED LUNGS SOUNDS AND CENTRAL RHONCHI. PT WAS ON BIPAP DURING THIS NIGHT AND NURSING STAFF REPORTS SHE TOLERATED WELL, D/C TO EAT THIS AM. PT CXR REVEALED POSSIBLE INFILTRATES. SHE IS ON DUO NEBS AND SPUTUM CULTURE ORDERED BUT UNCOLLECTED AT THIS TIME. PT STARTED ON IV ZITHROMAX. PT HAS HX OF CRF, BUN 58,C REAT 3.45 THIS AM. PT HAS JIMENEZ CATH FOR STRICT I & OS. - Past Medical Family Social History Past Med/Fam/Surg Hx: No changes since H&P Allergies: Allergies ceftriaxone [From Rocephin] Allergy (Verified 05/12/18 10:31) tramadol Adverse Reaction (Verified 04/28/17 14:27) - Review of Systems ROS: No change since H&P - Vital Signs and I&O's Vital Signs: Temperature 97.4 F Pulse Rate 75 Respiratory Rate 24 Blood Pressure [Right Arm] 124/60 Blood Pressure [Left Arm] 156/74 Blood Pressure 116/79 O2 Sat by Pulse Oximetry 98 Intake and Output: Intake & Output 07/13/19 07/14/19 07/15/19 07/16/19 11:59 11:59 11:59 11:59 Intake Total 691 / 691 1839 / 1839 1930 / 1930 Output Total 850 / 850 500 / 500 1050 / 1050 Balance -159 / -159 1339 / 1339 881 / 881 - Physical Exam Oriented: Person (OPENS EYE TO HER NAME) Eyes: Normal Ear: Normal Nose: Normal Throat: Dry Respiratory: Diminished, Wheezes, Rhonchi Cardiovascular: Edema : Normal Auscultation: Bowel Sounds: Normal Tenderness: Normal Skin: Decreased Turgur Musculoskeletal: Right, Left, Shoulder, Leg, Back:Lumbar, Tender (RIGHT SHOULDER), Motor Deficit, Sensory Deficit Psychiatric: Depression Affect: Flat Speech Pattern: Clear - Laboratory and Diagnostics Result Diagrams: 07/15/19 05:49 07/15/19 05:49 Labs: 07/13/19 14:22 Sputum - Expectorated Sputum Sputum Culture - Final 07/13/19 14:22 Sputum - Expectorated Sputum - Final 07/12/19 14:27 Blood Blood Culture - Preliminary 07/12/19 14:55 Blood Blood Culture - Preliminary 07/12/19 14:00 Urine,Catheterized Urine Culture - Final [facility] WBC 3.3 X10^3/uL (3.6-10.0) L 07/15/19 05:49 RBC 3.07 X10^6/uL (3.5-5.4) L 07/15/19 05:49 Hgb 8.5 g/dL (12.0-16.0) L 07/15/19 05:49 Hct 26.9 % (36.0-47.0) L 07/15/19 05:49 MCV 87.8 fL (80.0-100.0) 07/15/19 05:49 MCH 27.7 pg (27.0-34.0) 07/15/19 05:49 MCHC 31.6 g/dL (33.0-35.0) L 07/15/19 05:49 RDW 17.0 % (11.6-16.5) H 07/15/19 05:49 Plt Count 142 X10^3/uL (150.0-450.0) L 07/15/19 05:49 MPV 9.0 fL (7.4-11.0) 07/15/19 05:49 Neut % (Auto) 62.0 % (42.0-75.0) 07/15/19 05:49 Lymph % (Auto) 27.3 % (21.0-51.0) 07/15/19 05:49 [place] % (Auto) 8.2 % (0.0-13.0) 07/15/19 05:49 Eos % (Auto) 2.2 % (0.9-2.9) 07/15/19 05:49 Baso % (Auto) 0.3 % (0.2-1.0) 07/15/19 05:49 Neut # (Auto) 2.0 x10^3/uL (2.2-4.8) L 07/15/19 05:49 Lymph # (Auto) 0.9 X10^3/uL (1.3-2.9) L 07/15/19 05:49 [place] # (Auto) 0.3 x10^3/uL (0.3-0.8) 07/15/19 05:49 Eos # (Auto) 0.1 x10^3/uL (0.0-0.2) 07/15/19 05:49 Baso # (Auto) 0.0 X10^3/uL (0.0-0.1) 07/15/19 05:49 Absolute Nucleated RBC 0.5 /100WBC 07/15/19 05:49 Sodium 133 mmol/L (136-145) L 07/15/19 05:49 Corrected Sodium TNP 07/15/19 05:49 Potassium 4.4 mmol/L (3.5-5.1) 07/15/19 05:49 Chloride 100 mmol/L (98-107) 07/15/19 05:49 Carbon Dioxide 25.4 mmol/L (21-32) 07/15/19 05:49 BUN 57 mg/dL (7-18) H 07/15/19 05:49 Creatinine 3.70 mg/dL (0.55-1.02) H 07/15/19 05:49 Est GFR (MDRD) Af Amer 15 (>60) L 07/15/19 05:49 Est GFR (MDRD) Non-Af 12 (>60) L 07/15/19 05:49 Glucose 102 mg/dL (65-99) H 07/15/19 05:49 Calcium 8.3 mg/dL (8.5-10.1) L 07/15/19 05:49 Corrected Calcium 9.9 mg/dL (8.5-10.1) 07/15/19 05:49 Magnesium 2.0 mg/dL (1.7-2.9) 07/12/19 14:27 Total Bilirubin 0.20 mg/dL (0.2-1.0) 07/15/19 05:49 AST 12 Units/L (15-37) L 07/15/19 05:49 ALT 12 Units/L (12-78) 07/15/19 05:49 Alkaline Phosphatase 91 Units/L (46-116) 07/15/19 05:49 Creatine Kinase 22 Units/L (26-192) L 07/12/19 14:27 CK-MB (CK-2) < 1.0 ng/mL (0-4.0) 07/12/19 14:27 CK/CKMB % Calc 4.6 % (<4) 07/12/19 14:27 Troponin I < 0.02 ng/mL (0-1.5) 07/12/19 14:27 Total Protein 5.5 g/dL (6.4-8.2) L 07/15/19 05:49 Albumin 2.0 g/dL (3.4-5.0) L 07/15/19 05:49 Globulin 3.5 g/dL (2.5-4.5) 07/15/19 05:49 Albumin/Globulin Ratio 0.6 Ratio (1.1-2.1) L 07/15/19 05:49 Specimen Type Catherized urine 07/12/19 14:00 Urine Color Yellow (YELLOW) 07/12/19 14:00 Urine Appearance Cloudy (CLEAR) 07/12/19 14:00 Urine pH 8.0 (5.0 - 8.0) 07/12/19 14:00 Ur Specific [place] 1.010 (1.000-1.030) 07/12/19 14:00 Urine Protein 3+ (NEGATIVE) 07/12/19 14:00 Urine Glucose (UA) Negative (NEGATIVE) 07/12/19 14:00 Urine Ketones Negative (NEGATIVE) 07/12/19 14:00 Urine Occult Blood 4+ (NEGATIVE) 07/12/19 14:00 Urine Nitrite Negative (NEGATIVE) 07/12/19 14:00 Urine Bilirubin Negative (NEGATIVE) 07/12/19 14:00 Urine Urobilinogen Normal (NORMAL) 07/12/19 14:00 Ur Leukocyte Esterase 3+ (NEGATIVE) 07/12/19 14:00 Urine RBC 20-30 /HPF (0-3) A 07/12/19 14:00 Urine WBC Tntc /HPF (0-5) A 07/12/19 14:00 Ur Squamous Epith Cells Rare /HPF (NEGATIVE) 07/12/19 14:00 Calcium Oxalate Crystal Few /HPF (NEGATIVE) 07/12/19 14:00 Urine Bacteria 3+ /HPF (NEGATIVE) 07/12/19 14:00 Ur Culture Indicated? Yes/culture set up 07/12/19 14:00 - Plan (1) Altered mental status, unspecified Status: Acute Qualifiers: Qualified Code(s): R40.2411 - Mary Ann coma scale score 13-15, in the field [EMT or ambulance] Plan: ADMIT, CT HEAD OBTAINED ON 07/11. BLOOD AND URINE CULTURES OBTAINED ON ADMISSION. CXR THIS AM. JIMENEZ CATH, STRICT I & OS. GENTLE IV HYDRATION, IV DIURETICS PRN. TELEMETRY, REPEAT ABD ON 07/12 PRIOR TO ADMISSION, PRN BIPAP THERAPY (2) Acute on chronic renal failure Status: Acute (3) CHF (congestive heart failure) Status: Chronic Plan: SUPPLEMENTAL O2. BP CONTORL, STRICT I& OS. CXR (4) Chronic kidney disease (CKD) Status: Chronic Plan: BP CONTROL, DAILY CMP. STRICT I& OS (5) GERD (gastroesophageal reflux disease) Status: Chronic (6) Pneumonia Status: Acute Plan: IV ZITHROMAX, RESP THERAPY (7) Hypertension Status: Chronic (8) Hypothyroidism Status: Chronic (9) CHF (congestive heart failure) Status: Acute (10) UTI (urinary tract infection) Status: Acute
[2019-07-15] MEDS ORDERED: LASIX IVP ONE (13:35)
[2019-07-15] MEDS: LASIX IVP ONE ×2 (13:36→15:00)
--- NOTE | 2019-07-15 13:41 | PCM.PROG ---
Progress Note - Progress Note for Day of Date of Exam: 07/15/19 - Subjective Subjective: 84 BF DIRECT ADMIT FROM [facility] WITH REPORTS PER FAMILY AND NURSING STAFF PT HAS INCREASED LETHARGY AND AMS. PT HAD CT HEAD W/O ACUTE FINDINGS. PT HAD UC AND BC OBTAINED ON ADMISSION AND ABG. UC REVEALED PROTEUS SENSATIVE FOR MEROPENEM. PT WAS STARTED ON MEROPENEM FOR UTI WITH CULTURE PENDING. PT IS AWAKE AND ALERT THIS AM, HAS CO PAIN TO HER BUTTOCKS WITHOUT VISIBLE WOUND. SHE IS ON DUO NEBS AND SPUTUM CULTURE ORDERED BUT UNCOLLECTED AT THIS TIME. PT REPORTS SHE FEELS OK THIS AM, DENIES PAIN BUT CONTINUED WITH DIFFUSE RHONCHI AND DIMINISHED LUNG BASES AND BILATERAL LOWER EXTREMITY PITTING EDEMA.PT HAS HX OF CRF, BUN 57,C REAT 3.57 THIS AM. PT HAS JIMENEZ CATH FOR STRICT I & OS. - Past Medical Family Social History Past Med/Fam/Surg Hx: No changes since H&P Allergies: Allergies ceftriaxone [From Rocephin] Allergy (Verified 05/12/18 10:31) tramadol Adverse Reaction (Verified 04/28/17 14:27) - Review of Systems ROS: No change since H&P - Vital Signs and I&O's Vital Signs: Temperature 97.4 F Pulse Rate 75 Respiratory Rate 24 Blood Pressure [Right Arm] 124/60 Blood Pressure [Left Arm] 156/74 Blood Pressure 116/79 O2 Sat by Pulse Oximetry 98 Intake and Output: Intake & Output 07/13/19 07/14/19 07/15/19 07/16/19 11:59 11:59 11:59 11:59 Intake Total 691 / 691 1839 / 1839 193 / 1931 Output Total 850 / 850 500 / 500 1050 / 1050 Balance -159 / -159 1339 / 1339 881 / 881 - Physical Exam Oriented: Person (OPENS EYE TO HER NAME) Eyes: Normal Ear: Normal Nose: Normal Throat: Dry Respiratory: Diminished, Wheezes, Rhonchi Cardiovascular: Edema : Normal Auscultation: Bowel Sounds: Normal Tenderness: Normal Skin: Decreased Turgur Musculoskeletal: Right, Left, Shoulder, Leg, Back:Lumbar, Tender (RIGHT SHOULDER), Motor Deficit, Sensory Deficit Psychiatric: Depression Affect: Flat Speech Pattern: Clear - Laboratory and Diagnostics Result Diagrams: 07/15/19 05:49 07/15/19 05:49 Labs: 07/13/19 14:22 Sputum - Expectorated Sputum Sputum Culture - Final 07/13/19 14:22 Sputum - Expectorated Sputum - Final 07/12/19 14:27 Blood Blood Culture - Preliminary 07/12/19 14:55 Blood Blood Culture - Preliminary 07/12/19 14:00 Urine,Catheterized Urine Culture - Final [facility] WBC 3.3 X10^3/uL (3.6-10.0) L 07/15/19 05:49 RBC 3.07 X10^6/uL (3.5-5.4) L 07/15/19 05:49 Hgb 8.5 g/dL (12.0-16.0) L 07/15/19 05:49 Hct 26.9 % (36.0-47.0) L 07/15/19 05:49 MCV 87.8 fL (80.0-100.0) 07/15/19 05:49 MCH 27.7 pg (27.0-34.0) 07/15/19 05:49 MCHC 31.6 g/dL (33.0-35.0) L 07/15/19 05:49 RDW 17.0 % (11.6-16.5) H 07/15/19 05:49 Plt Count 142 X10^3/uL (150.0-450.0) L 07/15/19 05:49 MPV 9.0 fL (7.4-11.0) 07/15/19 05:49 Neut % (Auto) 62.0 % (42.0-75.0) 07/15/19 05:49 Lymph % (Auto) 27.3 % (21.0-51.0) 07/15/19 05:49 [place] % (Auto) 8.2 % (0.0-13.0) 07/15/19 05:49 Eos % (Auto) 2.2 % (0.9-2.9) 07/15/19 05:49 Baso % (Auto) 0.3 % (0.2-1.0) 07/15/19 05:49 Neut # (Auto) 2.0 x10^3/uL (2.2-4.8) L 07/15/19 05:49 Lymph # (Auto) 0.9 X10^3/uL (1.3-2.9) L 07/15/19 05:49 [place] # (Auto) 0.3 x10^3/uL (0.3-0.8) 07/15/19 05:49 Eos # (Auto) 0.1 x10^3/uL (0.0-0.2) 07/15/19 05:49 Baso # (Auto) 0.0 X10^3/uL (0.0-0.1) 07/15/19 05:49 Absolute Nucleated RBC 0.5 /100WBC 07/15/19 05:49 Sodium 133 mmol/L (136-145) L 07/15/19 05:49 Corrected Sodium TNP 07/15/19 05:49 Potassium 4.4 mmol/L (3.5-5.1) 07/15/19 05:49 Chloride 100 mmol/L (98-107) 07/15/19 05:49 Carbon Dioxide 25.4 mmol/L (21-32) 07/15/19 05:49 BUN 57 mg/dL (7-18) H 07/15/19 05:49 Creatinine 3.70 mg/dL (0.55-1.02) H 07/15/19 05:49 Est GFR (MDRD) Af Amer 15 (>60) L 07/15/19 05:49 Est GFR (MDRD) Non-Af 12 (>60) L 07/15/19 05:49 Glucose 102 mg/dL (65-99) H 07/15/19 05:49 Calcium 8.3 mg/dL (8.5-10.1) L 07/15/19 05:49 Corrected Calcium 9.9 mg/dL (8.5-10.1) 07/15/19 05:49 Magnesium 2.0 mg/dL (1.7-2.9) 07/12/19 14:27 Total Bilirubin 0.20 mg/dL (0.2-1.0) 07/15/19 05:49 AST 12 Units/L (15-37) L 07/15/19 05:49 ALT 12 Units/L (12-78) 07/15/19 05:49 Alkaline Phosphatase 91 Units/L (46-116) 07/15/19 05:49 Creatine Kinase 22 Units/L (26-192) L 07/12/19 14:27 CK-MB (CK-2) < 1.0 ng/mL (0-4.0) 07/12/19 14:27 CK/CKMB % Calc 4.6 % (<4) 07/12/19 14:27 Troponin I < 0.02 ng/mL (0-1.5) 07/12/19 14:27 Total Protein 5.5 g/dL (6.4-8.2) L 07/15/19 05:49 Albumin 2.0 g/dL (3.4-5.0) L 07/15/19 05:49 Globulin 3.5 g/dL (2.5-4.5) 07/15/19 05:49 Albumin/Globulin Ratio 0.6 Ratio (1.1-2.1) L 07/15/19 05:49 Specimen Type Catherized urine 07/12/19 14:00 Urine Color Yellow (YELLOW) 07/12/19 14:00 Urine Appearance Cloudy (CLEAR) 07/12/19 14:00 Urine pH 8.0 (5.0 - 8.0) 07/12/19 14:00 Ur Specific [place] 1.010 (1.000-1.030) 07/12/19 14:00 Urine Protein 3+ (NEGATIVE) 07/12/19 14:00 Urine Glucose (UA) Negative (NEGATIVE) 07/12/19 14:00 Urine Ketones Negative (NEGATIVE) 07/12/19 14:00 Urine Occult Blood 4+ (NEGATIVE) 07/12/19 14:00 Urine Nitrite Negative (NEGATIVE) 07/12/19 14:00 Urine Bilirubin Negative (NEGATIVE) 07/12/19 14:00 Urine Urobilinogen Normal (NORMAL) 07/12/19 14:00 Ur Leukocyte Esterase 3+ (NEGATIVE) 07/12/19 14:00 Urine RBC 20-30 /HPF (0-3) A 07/12/19 14:00 Urine WBC Tntc /HPF (0-5) A 07/12/19 14:00 Ur Squamous Epith Cells Rare /HPF (NEGATIVE) 07/12/19 14:00 Calcium Oxalate Crystal Few /HPF (NEGATIVE) 07/12/19 14:00 Urine Bacteria 3+ /HPF (NEGATIVE) 07/12/19 14:00 Ur Culture Indicated? Yes/culture set up 07/12/19 14:00 - Plan (1) Altered mental status, unspecified Status: Acute Qualifiers: Qualified Code(s): R40.2411 - [place] coma scale score 13-15, in the field [EMT or ambulance] Plan: ADMIT, CT HEAD OBTAINED ON 07/11. BLOOD AND URINE CULTURES OBTAINED ON ADMISSION. CXR THIS AM. JIMENEZ CATH, STRICT I & OS. GENTLE IV HYDRATION, IV DIURETICS PRN. TELEMETRY, REPEAT ABD ON 07/12 PRIOR TO ADMISSION, PRN BIPAP THERAPY (2) Acute on chronic renal failure Status: Acute (3) CHF (congestive heart failure) Status: Chronic Plan: SUPPLEMENTAL O2. BP CONTORL, STRICT I& OS. CXR (4) Chronic kidney disease (CKD) Status: Chronic Plan: BP CONTROL, DAILY CMP. STRICT I& OS (5) GERD (gastroesophageal reflux disease) Status: Chronic (6) Pneumonia Status: Acute Plan: IV ZITHROMAX, RESP THERAPY (7) Hypertension Status: Chronic (8) Hypothyroidism Status: Chronic (9) CHF (congestive heart failure) Status: Acute (10) UTI (urinary tract infection) Status: Acute
[2019-07-15] MEDS: NS 1000 ML 1,000 ML IV SCH (17:35)
[2019-07-15] MEDS: LIPITOR TAB 40 MG PO SCH (21:11)
[2019-07-16] MEDS: NS 1000 ML 1,000 ML IV SCH ×3 (01:00→20:32)
[2019-07-16 06:11] LABS: BASOPHILS % (AUTO) 0.5 % (0.2-1.0); EOSINOPHILS # (AUTO) 0.1 x10^3/uL (0.0-0.2); EOSINOPHILS % (AUTO) 3.7 % (0.9-2.9); HEMATOCRIT 25.9 % (36.0-47.0); HEMOGLOBIN 8.2 g/dL (12.0-16.0); LYMPHOCYTES # (AUTO) 0.9 X10^3/uL (1.3-2.9); LYMPHOCYTES % (AUTO) 28.8 % (21.0-51.0); MEAN CORPUSCULAR HEMOGLOBIN 27.9 pg (27.0-34.0); MEAN CORPUSCULAR HGB CONC 31.7 g/dL (33.0-35.0); MEAN CORPUSCULAR VOLUME 87.8 fL (80.0-100.0); MEAN PLATELET VOLUME 8.6 fL (7.4-11.0); MONOCYTES # (AUTO) 0.4 x10^3/uL (0.3-0.8); MONOCYTES % (AUTO) 12.5 % (0.0-13.0); NEUTROPHILS # (AUTO) 1.6 x10^3/uL (2.2-4.8); NEUTROPHILS % (AUTO) 54.5 % (42.0-75.0); PLATELET COUNT 136 X10^3/uL (150.0-450.0); RED BLOOD COUNT 2.95 X10^6/uL (3.5-5.4); RED CELL DISTRIBUTION WIDTH 17.1 % (11.6-16.5)
[2019-07-16 06:16] LABS: ALANINE AMINOTRANSFERASE 12 Units/L (12-78); ALBUMIN 1.9 g/dL (3.4-5.0); ALKALINE PHOSPHATASE 87 Units/L (46-116); ASPARTATE AMINO TRANSFERASE 14 Units/L (15-37); BLOOD UREA NITROGEN 61 mg/dL (7-18); CALCIUM 8.5 mg/dL (8.5-10.1); CHLORIDE 100 mmol/L (98-107); COR CA(FOR HYPOALB) 10.2 mg/dL (8.5-10.1); CREATININE 3.89 mg/dL (0.55-1.02); SODIUM 132 mmol/L (136-145); TOTAL PROTEIN 5.3 g/dL (6.4-8.2); eGFR NON BLACK RACES 12 (>60)
[2019-07-16] MEDS: SYNTHROID 100 mcg TAB PO SCH (08:13)
[2019-07-16] MEDS: COLACE CAP 100 MG PO SCH (08:13)
[2019-07-16] MEDS: COREG TAB 12.5 MG PO SCH ×2 (08:14→22:14)
[2019-07-16] MEDS: MERREM VIAL IVP SCH ×2 (08:15→20:34)
[2019-07-16] MEDS: PLAVIX PO SCH (08:15)
[2019-07-16] MEDS: LOVENOX INJ 30 MG SYR SC SCH (08:15)
[2019-07-16] MEDS: DUONEB 0.5 MG/3 MG IN SCH ×5 (08:27→19:59)
[2019-07-16] MEDS: PULMICORT NEB TX 0.5 MG NEB SCH ×2 (08:27→19:59)
[2019-07-16] MEDS ORDERED: LASIX IVP ONE ×2 (09:55→10:00)
[2019-07-16] MEDS: LIPITOR TAB 40 MG PO SCH (20:34)
[2019-07-16] MEDS: LASIX IV SCH (22:14)
[2019-07-17 04:44] LABS: BASOPHILS % (AUTO) 0.6 % (0.2-1.0); EOSINOPHILS # (AUTO) 0.1 x10^3/uL (0.0-0.2); HEMATOCRIT 25.9 % (36.0-47.0); HEMOGLOBIN 8.1 g/dL (12.0-16.0); LYMPHOCYTES # (AUTO) 0.8 X10^3/uL (1.3-2.9); LYMPHOCYTES % (AUTO) 29.7 % (21.0-51.0); MEAN CORPUSCULAR HEMOGLOBIN 27.7 pg (27.0-34.0); MEAN CORPUSCULAR HGB CONC 31.2 g/dL (33.0-35.0); MEAN CORPUSCULAR VOLUME 88.8 fL (80.0-100.0); MEAN PLATELET VOLUME 8.8 fL (7.4-11.0); MONOCYTES # (AUTO) 0.3 x10^3/uL (0.3-0.8); NEUTROPHILS # (AUTO) 1.4 x10^3/uL (2.2-4.8); NEUTROPHILS % (AUTO) 54.7 % (42.0-75.0); PLATELET COUNT 131 X10^3/uL (150.0-450.0); RED BLOOD COUNT 2.92 X10^6/uL (3.5-5.4); RED CELL DISTRIBUTION WIDTH 16.6 % (11.6-16.5); WHITE BLOOD COUNT 2.6 X10^3/uL (3.6-10.0)
[2019-07-17 05:02] LABS: ALANINE AMINOTRANSFERASE 11 Units/L (12-78); ALBUMIN 1.8 g/dL (3.4-5.0); ALKALINE PHOSPHATASE 81 Units/L (46-116); ASPARTATE AMINO TRANSFERASE 15 Units/L (15-37); BLOOD UREA NITROGEN 62 mg/dL (7-18); CALCIUM 8.4 mg/dL (8.5-10.1); CARBON DIOXIDE 23.3 mmol/L (21-32); CHLORIDE 101 mmol/L (98-107); COR CA(FOR HYPOALB) 10.2 mg/dL (8.5-10.1); CREATININE 4.04 mg/dL (0.55-1.02); SODIUM 134 mmol/L (136-145); TOTAL PROTEIN 5.2 g/dL (6.4-8.2); eGFR NON BLACK RACES 11 (>60)
--- NOTE | 2019-07-17 06:43 | RAD ---
Examination: AP chest History: SOB Comparison 07/15/2019 Findings: Continued cardiac enlargement. Increasing diffuse density in the lungs is suggestive of progressive congestion and perivascular edema. Evaluation is significantly limited by patient rotation, and motion artifact. There is no change in position of the central line. Impression: Stable cardiomegaly with suggestion of increasing congestion, infiltrates/edema. Technically limited study. Repeat recommended. Reported By:
[2019-07-17] MEDS: PULMICORT NEB TX 0.5 MG NEB SCH ×2 (09:22→20:24)
[2019-07-17] MEDS: DUONEB 0.5 MG/3 MG IN SCH ×4 (09:22→20:24)
[2019-07-17] MEDS: COREG TAB 12.5 MG PO SCH ×2 (09:58→21:36)
[2019-07-17] MEDS: LOVENOX INJ 30 MG SYR SC SCH (10:00)
[2019-07-17] MEDS: PLAVIX PO SCH (10:00)
[2019-07-17] MEDS: COLACE CAP 100 MG PO SCH (10:01)
[2019-07-17] MEDS: SYNTHROID 100 mcg TAB PO SCH (10:01)
[2019-07-17] MEDS: LASIX IV SCH (10:02)
[2019-07-17] MEDS: MERREM VIAL IVP SCH ×2 (10:02→20:57)
[2019-07-17] MEDS: ALBUMIN HUMAN 25%- 100 ML 100 ML IV SCH ×2 (17:53→22:00)
--- NOTE | 2019-07-17 19:02 | RAD ---
Examination: AP chest History: Pneumonia Comparison reference 07/17/2019 Findings: Continued cardiomegaly with pulmonary vascular congestion. There is slight apparent improvement in aeration of the lungs with decreasing perivascular edema. The lungs are not yet clear. There is persistent opacity in the retrocardiac area; the diaphragm is obscured. Impression: Stable cardiomegaly with persistent but improving perivascular edema. Opacity left base consistent with airspace disease in the left lower lobe. Continued follow-up suggested. Reported By:
[2019-07-17] MEDS: LASIX IVP SCH ×2 (19:30→22:00)
[2019-07-17] MEDS: LIPITOR TAB 40 MG PO SCH (20:56)
[2019-07-17] MEDS ORDERED: LASIX IV SCH (21:00)
[2019-07-18 04:48] LABS: BASOPHILS % (AUTO) 0.5 % (0.2-1.0); EOSINOPHILS # (AUTO) 0.1 x10^3/uL (0.0-0.2); EOSINOPHILS % (AUTO) 4.2 % (0.9-2.9); HEMATOCRIT 26.3 % (36.0-47.0); HEMOGLOBIN 8.2 g/dL (12.0-16.0); LYMPHOCYTES # (AUTO) 0.6 X10^3/uL (1.3-2.9); LYMPHOCYTES % (AUTO) 26.2 % (21.0-51.0); MEAN CORPUSCULAR HEMOGLOBIN 27.7 pg (27.0-34.0); MEAN CORPUSCULAR HGB CONC 31.1 g/dL (33.0-35.0); MEAN CORPUSCULAR VOLUME 88.8 fL (80.0-100.0); MEAN PLATELET VOLUME 8.7 fL (7.4-11.0); MONOCYTES # (AUTO) 0.2 x10^3/uL (0.3-0.8); MONOCYTES % (AUTO) 10.1 % (0.0-13.0); NEUTROPHILS # (AUTO) 1.4 x10^3/uL (2.2-4.8); PLATELET COUNT 131 X10^3/uL (150.0-450.0); RED BLOOD COUNT 2.97 X10^6/uL (3.5-5.4); RED CELL DISTRIBUTION WIDTH 16.9 % (11.6-16.5); WHITE BLOOD COUNT 2.4 X10^3/uL (3.6-10.0)
[2019-07-18 05:03] LABS: ALANINE AMINOTRANSFERASE 9 Units/L (12-78); ALBUMIN 2.3 g/dL (3.4-5.0); ALKALINE PHOSPHATASE 80 Units/L (46-116); ASPARTATE AMINO TRANSFERASE 15 Units/L (15-37); BLOOD UREA NITROGEN 63 mg/dL (7-18); CALCIUM 8.6 mg/dL (8.5-10.1); CARBON DIOXIDE 24.1 mmol/L (21-32); CHLORIDE 102 mmol/L (98-107); CREATININE 4.11 mg/dL (0.55-1.02); SODIUM 136 mmol/L (136-145); TOTAL PROTEIN 5.6 g/dL (6.4-8.2); eGFR NON BLACK RACES 11 (>60)
[2019-07-18] MEDS: ALBUMIN HUMAN 25%- 100 ML 100 ML IV SCH ×4 (05:30→21:15)
[2019-07-18] MEDS: NS 1000 ML 1,000 ML IV SCH ×3 (05:31→09:13)
[2019-07-18 05:38] LABS: PLATELET MORPHOLOGY COMMENT NORMAL (NORMAL)
[2019-07-18] MEDS: LASIX IVP SCH ×4 (06:57→22:07)
--- NOTE | 2019-07-18 07:39 | RAD ---
HISTORY: 84-year-old female with CHF and pneumonia. Study: Frontal view of the chest. Comparison: Chest radiograph 07/17/2019 Findings: Right subclavian central venous catheter unchanged. The trachea is midline. The cardiac silhouette is stably enlarged with unchanged pulmonary edema and left effusion with left basilar airspace opacity. No pneumothorax. Soft tissues are unremarkable. Severe degenerative change left shoulder is stable. Osseous structures otherwise intact. IMPRESSION: 1. No significant interval change in degree of pulmonary edema and left basilar airspace opacity. Correlate clinically and with serology. Reported By:
[2019-07-18] MEDS ORDERED: NS 100 ML IV + SPIKE MINIBAG* 100 ML IV ONE (08:36)
[2019-07-18] MEDS: LOVENOX INJ 30 MG SYR SC SCH (09:11)
[2019-07-18] MEDS: COREG TAB 12.5 MG PO SCH ×3 (09:12→21:13)
[2019-07-18] MEDS: MERREM VIAL IVP SCH ×2 (09:12→21:13)
[2019-07-18] MEDS: COLACE CAP 100 MG PO SCH (09:13)
[2019-07-18] MEDS: SYNTHROID 100 mcg TAB PO SCH (09:13)
[2019-07-18] MEDS: PLAVIX PO SCH (09:13)
[2019-07-18] MEDS: DUONEB 0.5 MG/3 MG IN SCH ×4 (09:15→20:02)
[2019-07-18] MEDS: PULMICORT NEB TX 0.5 MG NEB SCH ×2 (09:15→20:02)
[2019-07-18] MEDS: ROBITUSSIN DM PO PRN (14:02)
[2019-07-18] MEDS: LIPITOR TAB 40 MG PO SCH (21:13)
[2019-07-19] MEDS: NS 1000 ML 1,000 ML IV SCH ×2 (04:16→14:22)
[2019-07-19 04:57] LABS: BASOPHILS % (AUTO) 0.5 % (0.2-1.0); EOSINOPHILS # (AUTO) 0.1 x10^3/uL (0.0-0.2); EOSINOPHILS % (AUTO) 4.1 % (0.9-2.9); HEMATOCRIT 26.2 % (36.0-47.0); HEMOGLOBIN 8.2 g/dL (12.0-16.0); LYMPHOCYTES # (AUTO) 0.6 X10^3/uL (1.3-2.9); LYMPHOCYTES % (AUTO) 23.6 % (21.0-51.0); MEAN CORPUSCULAR HEMOGLOBIN 27.7 pg (27.0-34.0); MEAN CORPUSCULAR HGB CONC 31.5 g/dL (33.0-35.0); MEAN PLATELET VOLUME 8.8 fL (7.4-11.0); MONOCYTES # (AUTO) 0.2 x10^3/uL (0.3-0.8); MONOCYTES % (AUTO) 9.3 % (0.0-13.0); NEUTROPHILS # (AUTO) 1.6 x10^3/uL (2.2-4.8); NEUTROPHILS % (AUTO) 62.5 % (42.0-75.0); PLATELET COUNT 132 X10^3/uL (150.0-450.0); RED BLOOD COUNT 2.97 X10^6/uL (3.5-5.4); RED CELL DISTRIBUTION WIDTH 16.3 % (11.6-16.5); WHITE BLOOD COUNT 2.5 X10^3/uL (3.6-10.0)
[2019-07-19] MEDS: ALBUMIN HUMAN 25%- 100 ML 100 ML IV SCH ×2 (05:00→14:19)
[2019-07-19 05:03] LABS: ALANINE AMINOTRANSFERASE 12 Units/L (12-78); ALBUMIN 3.2 g/dL (3.4-5.0); ALKALINE PHOSPHATASE 74 Units/L (46-116); ASPARTATE AMINO TRANSFERASE 14 Units/L (15-37); BLOOD UREA NITROGEN 67 mg/dL (7-18); CALCIUM 9.1 mg/dL (8.5-10.1); CARBON DIOXIDE 23.6 mmol/L (21-32); CHLORIDE 101 mmol/L (98-107); COR CA(FOR HYPOALB) 9.7 mg/dL (8.5-10.1); CREATININE 4.06 mg/dL (0.55-1.02); SODIUM 137 mmol/L (136-145); TOTAL PROTEIN 6.1 g/dL (6.4-8.2); eGFR NON BLACK RACES 11 (>60)
[2019-07-19] MEDS: LASIX IVP SCH ×2 (06:19→14:22)
[2019-07-19] MEDS: PULMICORT NEB TX 0.5 MG NEB SCH (09:42)
[2019-07-19] MEDS: DUONEB 0.5 MG/3 MG IN SCH ×3 (09:42→16:58)
[2019-07-19] MEDS: LOVENOX INJ 30 MG SYR SC SCH (11:02)
[2019-07-19] MEDS: MERREM VIAL IVP SCH (11:02)
[2019-07-19] MEDS: PLAVIX PO SCH (11:03)
[2019-07-19] MEDS: COREG TAB 12.5 MG PO SCH (11:04)
[2019-07-19] MEDS: SYNTHROID 100 mcg TAB PO SCH (11:04)
[2019-07-19] MEDS: COLACE CAP 100 MG PO SCH (11:04)
[2019-07-19 16:06] VITALS: BP 180/97
== END 2019-07-19 17:20 | disposition short-term general hospital (02) | DRG 689 ==
LOC: ICU 13:32
PROVIDERS: ADMIT Internal Medicine; ATTEND Internal Medicine
DX: N39.0 Urinary tract infection, site not specified; J18.8 Other pneumonia, unspecified organism; J90 Pleural effusion, not elsewhere classified; N18.6 End stage renal disease; R94.31 Abnormal electrocardiogram [ECG] [EKG]; R06.02 Shortness of breath; N17.8 Other acute kidney failure; K21.9 Gastro-esophageal reflux disease without esophagitis; L89.159 Pressure ulcer of sacral region, unspecified stage; I50.9 Heart failure, unspecified; B96.4 Proteus (mirabilis) (morganii) as the cause of diseases classified elsewhere; R40.2411 Glasgow coma scale score 13-15, in the field [EMT or ambulance]; E11.22 Type 2 diabetes mellitus with diabetic chronic kidney disease; I13.2 Hypertensive heart and chronic kidney disease with heart failure and with stage 5 chronic kidney disease, or end stage renal disease; E03.8 Other specified hypothyroidism; R60.0 Localized edema
CPT/HCPCS: 36415; 36556; 71010; 71045; 80053; 81001; 82550; 82553; 83735; 84484; 85025; 87040; 87070; 87086; 87088; 87186; 87205; 93005; 94640; 94660; 94669; 97163; A4222; A4618; A7030; P9047; J0456; J1335; J1650; J1940; J2185; J7030; J7050; J7620; J7626

== ENCOUNTER 2019-10-22 13:46 | Inpatient (IN) ==
[2019-10-22 16:49] VITALS: BMI 40.4
[2019-10-22] MEDS ORDERED: PHARMACY CONSULT LTC MEDICATIONS XX SCH (18:00)
[2019-10-22] MEDS ORDERED: ZOFRAN INJ 4 MG VIAL IVP PRN (19:23)
[2019-10-22] MEDS ORDERED: HumuLIN R SUBCUT PRN (19:26)
[2019-10-22] MEDS ORDERED: SALINE 3% 15 ML NEB TX NEB ONE (20:04)
[2019-10-22] MEDS: PULMICORT NEB TX 0.5 MG NEB SCH (20:07)
[2019-10-22] MEDS: DUONEB 0.5 MG/3 MG (3 mL) NEB SCH (20:07)
[2019-10-22] MEDS: KAYEXALATE SUSP PO SCH (20:23)
[2019-10-22] MEDS: SNACK - Diabetic Appropriate PO SCH (20:30)
[2019-10-23 01:58] LABS: BILIRUBIN,URINE NEGATIVE (NEGATIVE); BLOOD/HEMOGLOBIN,URINE 3+ (NEGATIVE); GLUCOSE, URINE NEGATIVE (NEGATIVE); KETONES,URINE NEGATIVE (NEGATIVE); LEUKOCYTE ESTERASE ,URINE 3+ (NEGATIVE); NITRITES,URINE NEGATIVE (NEGATIVE); PROTEIN,URINE 3+ (NEGATIVE); UROBILINOGEN,URINE NORMAL (NORMAL)
[2019-10-23 02:08] LABS: APPEARANCE,URINE CLOUDY (CLEAR); BACTERIA,URINE TRACE /HPF (NEGATIVE); COLOR,URINE YELLOW (YELLOW); SQUAMOUS EPITHELIAL CELL,UR RARE /HPF (NEGATIVE)
[2019-10-23 02:09] LABS: AMORPHOUS SEDIMENT,UR 2+ /HPF (NEGATIVE)
[2019-10-23] MEDS: KAYEXALATE SUSP PO SCH (02:30)
[2019-10-23 05:34] LABS: BASOPHILS % (AUTO) 0.1 % (0.2-1.0); EOSINOPHILS # (AUTO) 0.1 x10^3/uL (0.0-0.2); EOSINOPHILS % (AUTO) 3.7 % (0.9-2.9); HEMATOCRIT 28.5 % (36.0-47.0); HEMOGLOBIN 9.1 g/dL (12.0-16.0); LYMPHOCYTES # (AUTO) 1.1 X10^3/uL (1.3-2.9); LYMPHOCYTES % (AUTO) 32.5 % (21.0-51.0); MEAN CORPUSCULAR HEMOGLOBIN 26.1 pg (27.0-34.0); MEAN CORPUSCULAR HGB CONC 32.1 g/dL (33.0-35.0); MEAN CORPUSCULAR VOLUME 81.4 fL (80.0-100.0); MEAN PLATELET VOLUME 9.8 fL (7.4-11.0); MONOCYTES # (AUTO) 0.4 x10^3/uL (0.3-0.8); MONOCYTES % (AUTO) 10.2 % (0.0-13.0); NEUTROPHILS # (AUTO) 1.8 x10^3/uL (2.2-4.8); NEUTROPHILS % (AUTO) 53.5 % (42.0-75.0); PLATELET COUNT 150 X10^3/uL (150.0-450.0); RED CELL DISTRIBUTION WIDTH 14.3 % (11.6-16.5); WHITE BLOOD COUNT 3.5 X10^3/uL (3.6-10.0)
[2019-10-23 05:45] LABS: ALBUMIN 2.7 g/dL (3.4-5.0); CALCIUM 6.5 mg/dL (8.5-10.1); CARBON DIOXIDE 18.3 mmol/L (21-32); COR CA(FOR HYPOALB) 7.5 mg/dL (8.5-10.1); CREATININE 12.55 mg/dL (0.55-1.02); TOTAL PROTEIN 6.6 g/dL (6.4-8.2)
[2019-10-23] MEDS: DUONEB 0.5 MG/3 MG (3 mL) NEB SCH ×4 (09:28→20:04)
[2019-10-23] MEDS: PULMICORT NEB TX 0.5 MG NEB SCH ×2 (09:28→20:04)
[2019-10-23] MEDS ORDERED: NEURONTIN CAP 100 MG PO PRN (11:06)
[2019-10-23] MEDS: COREG TAB 12.5 MG PO SCH ×2 (11:34→21:44)
[2019-10-23] MEDS: PLAVIX PO SCH (11:34)
--- NOTE | 2019-10-23 12:31 | RAD ---
HISTORYHypertension, CHFSTUDYAP [id number] heart is enlarged. Interval appearance of bilateral interstitial densities compatible with pulmonary edema. No focal consolidation, pneumothorax or large pleural effusion.IMPRESSIONCardiomegaly with interval development of bilateral pulmonary densities consistent with perivascular edema, which may be cardiogenic or related to hypervolemia.Electronically signed by: FLETCHER ROSS (Oct 23, 2019 12:30:14)
[2019-10-23] MEDS ORDERED: DUONEB 0.5 MG/3 MG (3 mL) NEB SCH (13:00)
[2019-10-23] MEDS ORDERED: NS 1000 ML 1,000 ML ONE (13:09)
[2019-10-23] MEDS: NS 1000 ML 1,000 ML IV SCH (13:10)
[2019-10-23] MEDS: SNACK - Diabetic Appropriate PO SCH ×2 (20:40→21:33)
[2019-10-24 05:48] LABS: ALBUMIN 2.8 g/dL (3.4-5.0); CALCIUM 6.6 mg/dL (8.5-10.1); CARBON DIOXIDE 18.7 mmol/L (21-32); COR CA(FOR HYPOALB) 7.6 mg/dL (8.5-10.1); CREATININE 12.8 mg/dL (0.55-1.02); TOTAL PROTEIN 6.5 g/dL (6.4-8.2)
[2019-10-24 06:09] LABS: BASOPHILS % (AUTO) 0.7 % (0.2-1.0); EOSINOPHILS # (AUTO) 0.1 x10^3/uL (0.0-0.2); EOSINOPHILS % (AUTO) 4.2 % (0.9-2.9); HEMATOCRIT 28.3 % (36.0-47.0); HEMOGLOBIN 9.2 g/dL (12.0-16.0); LYMPHOCYTES # (AUTO) 0.9 X10^3/uL (1.3-2.9); LYMPHOCYTES % (AUTO) 29.6 % (21.0-51.0); MEAN CORPUSCULAR HEMOGLOBIN 26.2 pg (27.0-34.0); MEAN CORPUSCULAR HGB CONC 32.5 g/dL (33.0-35.0); MEAN CORPUSCULAR VOLUME 80.4 fL (80.0-100.0); MEAN PLATELET VOLUME 8.9 fL (7.4-11.0); MONOCYTES # (AUTO) 0.3 x10^3/uL (0.3-0.8); MONOCYTES % (AUTO) 10.1 % (0.0-13.0); NEUTROPHILS # (AUTO) 1.8 x10^3/uL (2.2-4.8); NEUTROPHILS % (AUTO) 55.4 % (42.0-75.0); PLATELET COUNT 142 X10^3/uL (150.0-450.0); RED BLOOD COUNT 3.52 X10^6/uL (3.5-5.4); RED CELL DISTRIBUTION WIDTH 14.5 % (11.6-16.5); WHITE BLOOD COUNT 3.2 X10^3/uL (3.6-10.0)
[2019-10-24] MEDS: COREG TAB 12.5 MG PO SCH ×2 (08:31→21:01)
[2019-10-24] MEDS: SYNTHROID 100 mcg TAB PO SCH (08:31)
[2019-10-24] MEDS: PLAVIX PO SCH (08:32)
[2019-10-24] MEDS: DUONEB 0.5 MG/3 MG (3 mL) NEB SCH ×4 (09:29→21:09)
[2019-10-24] MEDS: PULMICORT NEB TX 0.5 MG NEB SCH ×2 (09:29→21:09)
--- NOTE | 2019-10-24 10:32 | RAD ---
HISTORYABD SWELLING, N/V HX HTN, CHF; SX GB, ORTHO, CATARACTSSTUDYKUBCOMPARISONNone availableFINDINGSEvaluation of the abdomen demonstrates a no nonspecific bowel gas pattern. Moderate fecal burden no pathological soft tissue mass or calcification can be observed. Diffuse aortoiliac calcifications.. Degenerative changes of the bilateral hips and lumbar spine.IMPRESSIONNo evidence for acute abdominal pathology identified. Moderate fecal burden.Electronically signed by: GEORGE DE LEON (Oct 24, 2019 10:32:17)
[2019-10-24] MEDS: MERREM VIAL 500 MG in NS 50 ML IV + SPIKE MINIBAG* 50 ML IV SCH (14:00)
[2019-10-24] MEDS: NS 1000 ML 1,000 ML IV SCH (18:24)
[2019-10-24] MEDS: COLACE CAP 100 MG PO SCH (21:00)
[2019-10-24] MEDS: MILK OF MAGNESIA PO SCH (21:02)
[2019-10-24] MEDS: SNACK - Diabetic Appropriate PO SCH (21:02)
[2019-10-25 05:24] LABS: BASOPHILS % (AUTO) 0.6 % (0.2-1.0); EOSINOPHILS # (AUTO) 0.1 x10^3/uL (0.0-0.2); EOSINOPHILS % (AUTO) 3.7 % (0.9-2.9); HEMATOCRIT 29.5 % (36.0-47.0); HEMOGLOBIN 9.4 g/dL (12.0-16.0); LYMPHOCYTES # (AUTO) 1.1 X10^3/uL (1.3-2.9); LYMPHOCYTES % (AUTO) 28.9 % (21.0-51.0); MEAN PLATELET VOLUME 9.5 fL (7.4-11.0); MONOCYTES # (AUTO) 0.3 x10^3/uL (0.3-0.8); NEUTROPHILS # (AUTO) 2.2 x10^3/uL (2.2-4.8); NEUTROPHILS % (AUTO) 58.8 % (42.0-75.0); PLATELET COUNT 142 X10^3/uL (150.0-450.0); RED BLOOD COUNT 3.64 X10^6/uL (3.5-5.4); RED CELL DISTRIBUTION WIDTH 14.6 % (11.6-16.5); WHITE BLOOD COUNT 3.8 X10^3/uL (3.6-10.0)
[2019-10-25 05:27] LABS: ALBUMIN 2.7 g/dL (3.4-5.0); CALCIUM 6.5 mg/dL (8.5-10.1); CARBON DIOXIDE 19.1 mmol/L (21-32); COR CA(FOR HYPOALB) 7.5 mg/dL (8.5-10.1); CREATININE 12.74 mg/dL (0.55-1.02); TOTAL PROTEIN 6.6 g/dL (6.4-8.2)
[2019-10-25] MEDS: NS 1000 ML 1,000 ML IV SCH ×3 (06:16→22:36)
[2019-10-25] MEDS: COREG TAB 12.5 MG PO SCH ×2 (09:01→20:51)
[2019-10-25] MEDS: MERREM VIAL 500 MG in NS 50 ML IV + SPIKE MINIBAG* 50 ML IV SCH (09:01)
[2019-10-25] MEDS: MILK OF MAGNESIA PO SCH ×2 (09:01→20:52)
[2019-10-25] MEDS: SYNTHROID 100 mcg TAB PO SCH (09:02)
[2019-10-25] MEDS: PLAVIX PO SCH (09:02)
[2019-10-25] MEDS: DUONEB 0.5 MG/3 MG (3 mL) NEB SCH ×4 (09:06→21:35)
[2019-10-25] MEDS: PULMICORT NEB TX 0.5 MG NEB SCH ×2 (09:06→21:35)
--- NOTE | 2019-10-25 17:58 | DR.H&P ---
H&P - History & Physical for Day of: H&P Date: 10/22/19 - Chief Complaint Chief Complaint: COUGH, SOB, N/V, INCREASED LEG SWELLING - History of Present Illness History of Present Illness: PT IS 84 BM RESIDENT OF [facility] WITH ESRF, REFUSING DIALYSIS WITH CO INCREASE LEG SWELLING, INCREASE SOB WITH COUGH AND N/V. PT HAD ELEVATED POTASSIUM ON LAST CMP, TREATED OUTPT WITH KAYEXALATE PO. PT ADMITTED FOR TREATMENT OF ACUTE ON CHRONIC RENAL FAILURE, CHF EXACERBATION AND HYPERKALEMIA. - Past Medical History Past Medical History: Arthritis, CHF, COPD, Diabetes, Hypertension, Renal Disease - Past Surgical History Surgical History: Cholecystectomy, Ortho Surgery, Other - Social History Does patient currently use any type of tobacco product: No Have you used tobacco products in the last 12 months: No Type of Tobacco Use: None Does any household member use tobacco: No Alcohol Use: None Drug Use: None - Medications Home Medications: ceftriaxone [From Rocephin] Allergy (Verified 05/12/18 10:31) tramadol Adverse Reaction (Verified 04/28/17 14:27) CONTINUE taking the following medications Lactobac #2-Bifido #1-S. therm [VSL#3] 1 cap PO BID 10/23/19 [History] chlorthalidone 25 mg PO DAILY 10/23/19 [History] - Review of Systems Constitutional: Weakness, Malaise Eyes: No Symptoms Reported ENT: No Symptoms Reported Respiratory: Cough, SOB with Excertion Cardiovascular: Edema Gastrointestinal: Nausea, Vomiting. denies: Abdominal Pain Genitourinary: Incontinence Musculoskeletal: Leg Pain Skin: No Symptoms Reported Neurological: Weakness - Physical Exam Vital Signs: Temperature 98.5 F Pulse Rate [Apical] 81 Pulse Rate 86 Respiratory Rate 16 Blood Pressure [Right Arm] 141/76 Blood Pressure 149/77 O2 Sat by Pulse Oximetry 100 Oriented: Normal Eyes: Normal Ear: Normal Nose: Normal Throat: Dry Respiratory: RML Diminished, RLL Diminished, LML Diminished, LLL Diminished Cardiovascular: Normal, Edema (+ 4 BILATERAL LOWER EXTREMITY EDEMA). negative: Murmur : Normal Auscultation: Bowel Sounds: Normal Palpation: Normal Tenderness: Epigastric, Mild Skin: Decreased Turgur Musculoskeletal: Right, Left, Leg, Back:Lumbar, Swelling, Tender Psychiatric: Anxiety Affect: Anxious Speech Pattern: Clear, Appropriate - Assessment/Plan (1) Acute on chronic renal failure Status: Acute Plan: ADMIT, GENLT IV HYDRATION NS AT O. STRICT I& OS, ADMISSION LABS. UC ON ADMISSION, IV LASIX. CONTINUOUS CARDIAC MONITORING, SUPPLEMENTAL O2. VERIFY HOME MEDICATION, CONTINUE BP CONTROL (2) CHF (congestive heart failure) Status: Acute (3) UTI (urinary tract infection) Status: Acute (4) Diabetes Status: Chronic (5) GERD (gastroesophageal reflux disease) Status: Chronic (6) Hypertension Status: Chronic (7) Hypothyroidism Status: Chronic - Allergies Allergies/Adverse Reactions: Allergies Allergy/AdvReac Type Severity Reaction Status Date / Time ceftriaxone [From Rocephin] Allergy Verified 05/12/18 10:31 tramadol AdvReac Verified 04/28/17 14:27
--- NOTE | 2019-10-25 18:05 | PCM.PROG ---
Progress Note - Progress Note for Day of Date of Exam: 10/23/19 - Subjective Subjective: PT IS 84 BF, RESIDENT OF [facility] ADMITTED WITH ACUTE ON CHRONIC RENAL FAILURE, HYPERKALEMIA AND CHF. PT HAD UTI, WITH CULTURE PENDING. PT AWAKE AND ALERT CO RIGHT LEG FEELING HEAVY, PT HAS MOVING OR BILATERAL LE, SEVERE BILATERAL PITTING EDEMA. PT HAD PURULENT SEDIMENT IN JIMENEZ TUBE. PT BP STABLE. PT DENYING CHEST PAIN THIS AM. BUN 150 CREAT 12.8, POTASSIUM NORMAL. - Past Medical Family Social History Past Med/Fam/Surg Hx: No changes since H&P Allergies: Allergies ceftriaxone [From Rocephin] Allergy (Verified 05/12/18 10:31) tramadol Adverse Reaction (Verified 04/28/17 14:27) - Review of Systems ROS: No change since H&P - Vital Signs and I&O's Vital Signs: Temperature 98.5 F Pulse Rate [Apical] 81 Pulse Rate 86 Respiratory Rate 16 Blood Pressure [Right Arm] 141/76 Blood Pressure 149/77 O2 Sat by Pulse Oximetry 100 Intake and Output: Intake & Output 10/23/19 10/24/19 10/25/19 10/26/19 11:59 11:59 11:59 11:59 Intake Total 240 / 240 1144 / 1144 1459 / 1459 1169 / 1169 Output Total 600 / 600 345 / 345 200 / 200 Balance 240 / 240 544 / 544 1114 / 1114 969 / 969 - Physical Exam Oriented: Normal Eyes: Normal Ear: Normal Nose: Normal Throat: Dry Respiratory: Diminished, Wheezes Cardiovascular: Normal, Edema (+ 4 BILATERAL LOWER EXTREMITY EDEMA). negative: Murmur : Normal Auscultation: Bowel Sounds: Normal Tenderness: Epigastric, Mild Skin: Decreased Turgur Musculoskeletal: Right, Left, Leg, Back:Lumbar, Swelling, Tender Psychiatric: Anxiety Affect: Anxious Speech Pattern: Clear, Appropriate - Laboratory and Diagnostics Result Diagrams: 10/25/19 04:00 10/25/19 04:00 Labs: 10/23/19 01:20 Urine,Catheterized Urine Culture - Final Escherichia Coli 10/22/19 23:50 Sputum - Expectorated Sputum Sputum Culture - Final Morganella Morganii 10/22/19 23:50 Sputum - Expectorated Sputum - Final Laboratory WBC 3.8 X10^3/uL (3.6-10.0) 10/25/19 04:00 RBC 3.64 X10^6/uL (3.5-5.4) 10/25/19 04:00 Hgb 9.4 g/dL (12.0-16.0) L 10/25/19 04:00 Hct 29.5 % (36.0-47.0) L 10/25/19 04:00 MCV 81.0 fL (80.0-100.0) 10/25/19 04:00 MCH 26.0 pg (27.0-34.0) L 10/25/19 04:00 MCHC 32.0 g/dL (33.0-35.0) L 10/25/19 04:00 RDW 14.6 % (11.6-16.5) 10/25/19 04:00 Plt Count 142 X10^3/uL (150.0-450.0) L 10/25/19 04:00 MPV 9.5 fL (7.4-11.0) 10/25/19 04:00 Neut % (Auto) 58.8 % (42.0-75.0) 10/25/19 04:00 Lymph % (Auto) 28.9 % (21.0-51.0) 10/25/19 04:00 [place] % (Auto) 8.0 % (0.0-13.0) 10/25/19 04:00 Eos % (Auto) 3.7 % (0.9-2.9) H 10/25/19 04:00 Baso % (Auto) 0.6 % (0.2-1.0) 10/25/19 04:00 Neut # (Auto) 2.2 x10^3/uL (2.2-4.8) 10/25/19 04:00 Lymph # (Auto) 1.1 X10^3/uL (1.3-2.9) L 10/25/19 04:00 [place] # (Auto) 0.3 x10^3/uL (0.3-0.8) 10/25/19 04:00 Eos # (Auto) 0.1 x10^3/uL (0.0-0.2) 10/25/19 04:00 Baso # (Auto) 0.0 X10^3/uL (0.0-0.1) 10/25/19 04:00 Absolute Nucleated RBC 0.1 /100WBC 10/25/19 04:00 Sodium 133 mmol/L (136-145) L 10/25/19 04:00 Corrected Sodium 133 mmol/L (136-145) L 10/25/19 04:00 Potassium 4.7 mmol/L (3.5-5.1) 10/25/19 04:00 Chloride 95 mmol/L (98-107) L 10/25/19 04:00 Carbon Dioxide 19.1 mmol/L (21-32) L 10/25/19 04:00 BUN 147 mg/dL (7-18) H 10/25/19 04:00 Creatinine 12.74 mg/dL (0.55-1.02) H 10/25/19 04:00 Est GFR (MDRD) Af Amer 4 (>60) L 10/25/19 04:00 Est GFR (MDRD) Non-Af 3 (>60) L 10/25/19 04:00 Glucose 119 mg/dL (65-99) H 10/25/19 04:00 POC Glucose (mg/dL) 129 mg/dL (65-99) H 10/25/19 16:36 Calcium 6.5 mg/dL (8.5-10.1) L 10/25/19 04:00 Corrected Calcium 7.5 mg/dL (8.5-10.1) L 10/25/19 04:00 Magnesium 1.8 mg/dL (1.7-2.9) 10/25/19 04:00 Total Bilirubin 0.50 mg/dL (0.2-1.0) 10/25/19 04:00 AST 10 Units/L (15-37) L 10/25/19 04:00 ALT 8 Units/L (12-78) L 10/25/19 04:00 Alkaline Phosphatase 80 Units/L (46-116) 10/25/19 04:00 Total Protein 6.6 g/dL (6.4-8.2) 10/25/19 04:00 Albumin 2.7 g/dL (3.4-5.0) L 10/25/19 04:00 Globulin 3.9 g/dL (2.5-4.5) 10/25/19 04:00 Albumin/Globulin Ratio 0.7 Ratio (1.1-2.1) L 10/25/19 04:00 Specimen Type Catherized urine 10/23/19 01:20 Urine Color Yellow (YELLOW) 10/23/19 01:20 Urine Appearance Cloudy (CLEAR) 10/23/19 01:20 Urine pH 5.0 (5.0 - 8.0) 10/23/19 01:20 Ur Specific [place] 1.010 (1.000-1.030) 10/23/19 01:20 Urine Protein 3+ (NEGATIVE) 10/23/19 01:20 Urine Glucose (UA) Negative (NEGATIVE) 10/23/19 01:20 Urine Ketones Negative (NEGATIVE) 10/23/19 01:20 Urine Occult Blood 3+ (NEGATIVE) 10/23/19 01:20 Urine Nitrite Negative (NEGATIVE) 10/23/19 01:20 Urine Bilirubin Negative (NEGATIVE) 10/23/19 01:20 Urine Urobilinogen Normal (NORMAL) 10/23/19 01:20 Ur Leukocyte Esterase 3+ (NEGATIVE) 10/23/19 01:20 Urine RBC 10-20 /HPF (0-3) A 10/23/19 01:20 Urine WBC Tntc /HPF (0-5) A 10/23/19 01:20 Ur Squamous Epith Cells Rare /HPF (NEGATIVE) 10/23/19 01:20 Amorphous Sediment 2+ /HPF (NEGATIVE) 10/23/19 01:20 Urine Bacteria Trace /HPF (NEGATIVE) 10/23/19 01:20 Ur Culture Indicated? Yes/culture set up 10/23/19 01:20 - Plan (1) Acute on chronic renal failure Status: Acute Plan: GENLT IV HYDRATION NS AT KVO. STRICT I& OS, AM. UC ON ADMISSION, IV LASIX. CONTINUOUS CARDIAC MONITORING, SUPPLEMENTAL O2. VERIFY HOME MEDICATION, CONTINUE BP CONTROL (2) CHF (congestive heart failure) Status: Acute (3) UTI (urinary tract infection) Status: Acute (4) Diabetes Status: Chronic (5) GERD (gastroesophageal reflux disease) Status: Chronic (6) Hypertension Status: Chronic (7) Hypothyroidism Status: Chronic
--- NOTE | 2019-10-25 18:07 | PCM.PROG ---
Progress Note - Progress Note for Day of Date of Exam: 10/24/19 - Subjective Subjective: PT IS 84 BF, RESIDENT OF [facility] ADMITTED WITH ACUTE ON CHRONIC RENAL FAILURE, HYPERKALEMIA AND CHF. PT HAD UTI, WITH CULTURE PENDING. PT STATES LEFT LEG IS BETTER TODAY. PT HAS MOVING OR BILATERAL LE, SEVERE BILATERAL PITTING EDEMA. PT HAD PURULENT SEDIMENT IN JIMENEZ TUBE. PT BP STABLE. PT DENYING CHEST PAIN THIS AM. BUN 147 CREAT 12.74, POTASSIUM NORMAL. PHARMACY CONSULTED FOR RENAL DOSE OF MEROPENEM FOR UTI + ECOLI - Past Medical Family Social History Past Med/Fam/Surg Hx: No changes since H&P Allergies: Allergies ceftriaxone [From Rocephin] Allergy (Verified 05/12/18 10:31) tramadol Adverse Reaction (Verified 04/28/17 14:27) - Review of Systems ROS: No change since H&P - Vital Signs and I&O's Vital Signs: Temperature 98.5 F Pulse Rate [Apical] 78 Pulse Rate 86 Respiratory Rate 24 Blood Pressure [Right Arm] 144/64 Blood Pressure 149/77 O2 Sat by Pulse Oximetry 100 Intake and Output: Intake & Output 10/23/19 10/24/19 10/25/19 10/26/19 11:59 11:59 11:59 11:59 Intake Total 240 / 240 1144 / 1144 1459 / 1459 1169 / 1169 Output Total 600 / 600 345 / 345 200 / 200 Balance 240 / 240 544 / 544 1114 / 1114 969 / 969 - Physical Exam Oriented: Normal Eyes: Normal Ear: Normal Nose: Normal Throat: Dry Respiratory: Diminished, Wheezes Cardiovascular: Normal, Edema (+ 4 BILATERAL LOWER EXTREMITY EDEMA). negative: Murmur : Normal Auscultation: Bowel Sounds: Normal Tenderness: Epigastric, Mild Skin: Decreased Turgur Musculoskeletal: Right, Left, Leg, Back:Lumbar, Swelling, Tender Psychiatric: Anxiety Affect: Anxious Speech Pattern: Clear, Appropriate - Laboratory and Diagnostics Result Diagrams: 10/25/19 04:00 10/25/19 04:00 Labs: 10/23/19 01:20 Urine,Catheterized Urine Culture - Final Escherichia Coli 10/22/19 23:50 Sputum - Expectorated Sputum Sputum Culture - Final Morganella Morganii 10/22/19 23:50 Sputum - Expectorated Sputum - Final Laboratory WBC 3.8 X10^3/uL (3.6-10.0) 10/25/19 04:00 RBC 3.64 X10^6/uL (3.5-5.4) 10/25/19 04:00 Hgb 9.4 g/dL (12.0-16.0) L 10/25/19 04:00 Hct 29.5 % (36.0-47.0) L 10/25/19 04:00 MCV 81.0 fL (80.0-100.0) 10/25/19 04:00 MCH 26.0 pg (27.0-34.0) L 10/25/19 04:00 MCHC 32.0 g/dL (33.0-35.0) L 10/25/19 04:00 RDW 14.6 % (11.6-16.5) 10/25/19 04:00 Plt Count 142 X10^3/uL (150.0-450.0) L 10/25/19 04:00 MPV 9.5 fL (7.4-11.0) 10/25/19 04:00 Neut % (Auto) 58.8 % (42.0-75.0) 10/25/19 04:00 Lymph % (Auto) 28.9 % (21.0-51.0) 10/25/19 04:00 [place] % (Auto) 8.0 % (0.0-13.0) 10/25/19 04:00 Eos % (Auto) 3.7 % (0.9-2.9) H 10/25/19 04:00 Baso % (Auto) 0.6 % (0.2-1.0) 10/25/19 04:00 Neut # (Auto) 2.2 x10^3/uL (2.2-4.8) 10/25/19 04:00 Lymph # (Auto) 1.1 X10^3/uL (1.3-2.9) L 10/25/19 04:00 [place] # (Auto) 0.3 x10^3/uL (0.3-0.8) 10/25/19 04:00 Eos # (Auto) 0.1 x10^3/uL (0.0-0.2) 10/25/19 04:00 Baso # (Auto) 0.0 X10^3/uL (0.0-0.1) 10/25/19 04:00 Absolute Nucleated RBC 0.1 /100WBC 10/25/19 04:00 Sodium 133 mmol/L (136-145) L 10/25/19 04:00 Corrected Sodium 133 mmol/L (136-145) L 10/25/19 04:00 Potassium 4.7 mmol/L (3.5-5.1) 10/25/19 04:00 Chloride 95 mmol/L (98-107) L 10/25/19 04:00 Carbon Dioxide 19.1 mmol/L (21-32) L 10/25/19 04:00 BUN 147 mg/dL (7-18) H 10/25/19 04:00 Creatinine 12.74 mg/dL (0.55-1.02) H 10/25/19 04:00 Est GFR (MDRD) Af Amer 4 (>60) L 10/25/19 04:00 Est GFR (MDRD) Non-Af 3 (>60) L 10/25/19 04:00 Glucose 119 mg/dL (65-99) H 10/25/19 04:00 POC Glucose (mg/dL) 129 mg/dL (65-99) H 10/25/19 16:36 Calcium 6.5 mg/dL (8.5-10.1) L 10/25/19 04:00 Corrected Calcium 7.5 mg/dL (8.5-10.1) L 10/25/19 04:00 Magnesium 1.8 mg/dL (1.7-2.9) 10/25/19 04:00 Total Bilirubin 0.50 mg/dL (0.2-1.0) 10/25/19 04:00 AST 10 Units/L (15-37) L 10/25/19 04:00 ALT 8 Units/L (12-78) L 10/25/19 04:00 Alkaline Phosphatase 80 Units/L (46-116) 10/25/19 04:00 Total Protein 6.6 g/dL (6.4-8.2) 10/25/19 04:00 Albumin 2.7 g/dL (3.4-5.0) L 10/25/19 04:00 Globulin 3.9 g/dL (2.5-4.5) 10/25/19 04:00 Albumin/Globulin Ratio 0.7 Ratio (1.1-2.1) L 10/25/19 04:00 Specimen Type Catherized urine 10/23/19 01:20 Urine Color Yellow (YELLOW) 10/23/19 01:20 Urine Appearance Cloudy (CLEAR) 10/23/19 01:20 Urine pH 5.0 (5.0 - 8.0) 10/23/19 01:20 Ur Specific Russell 1.010 (1.000-1.030) 10/23/19 01:20 Urine Protein 3+ (NEGATIVE) 10/23/19 01:20 Urine Glucose (UA) Negative (NEGATIVE) 10/23/19 01:20 Urine Ketones Negative (NEGATIVE) 10/23/19 01:20 Urine Occult Blood 3+ (NEGATIVE) 10/23/19 01:20 Urine Nitrite Negative (NEGATIVE) 10/23/19 01:20 Urine Bilirubin Negative (NEGATIVE) 10/23/19 01:20 Urine Urobilinogen Normal (NORMAL) 10/23/19 01:20 Ur Leukocyte Esterase 3+ (NEGATIVE) 10/23/19 01:20 Urine RBC 10-20 /HPF (0-3) A 10/23/19 01:20 Urine WBC Tntc /HPF (0-5) A 10/23/19 01:20 Ur Squamous Epith Cells Rare /HPF (NEGATIVE) 10/23/19 01:20 Amorphous Sediment 2+ /HPF (NEGATIVE) 10/23/19 01:20 Urine Bacteria Trace /HPF (NEGATIVE) 10/23/19 01:20 Ur Culture Indicated? Yes/culture set up 10/23/19 01:20 - Plan (1) Acute on chronic renal failure Status: Acute Plan: GENLT IV HYDRATION NS AT KVO. STRICT I& OS, AM. UC ON ADMISSION, IV LASIX. CONTINUOUS CARDIAC MONITORING, SUPPLEMENTAL O2. VERIFY HOME MEDICATION, CONTINUE BP CONTROL (2) CHF (congestive heart failure) Status: Acute (3) UTI (urinary tract infection) Status: Acute (4) Diabetes Status: Chronic (5) GERD (gastroesophageal reflux disease) Status: Chronic (6) Hypertension Status: Chronic (7) Hypothyroidism Status: Chronic
[2019-10-25] MEDS: SNACK - Diabetic Appropriate PO SCH (20:50)
[2019-10-25] MEDS: COLACE CAP 100 MG PO SCH (20:51)
[2019-10-26] MEDS: NS 1000 ML 1,000 ML IV SCH (06:12)
[2019-10-26 06:22] LABS: BASOPHILS % (AUTO) 0.4 % (0.2-1.0); EOSINOPHILS # (AUTO) 0.1 x10^3/uL (0.0-0.2); EOSINOPHILS % (AUTO) 4.3 % (0.9-2.9); HEMATOCRIT 26.9 % (36.0-47.0); HEMOGLOBIN 8.8 g/dL (12.0-16.0); LYMPHOCYTES % (AUTO) 29.4 % (21.0-51.0); MEAN CORPUSCULAR HEMOGLOBIN 26.2 pg (27.0-34.0); MEAN CORPUSCULAR HGB CONC 32.7 g/dL (33.0-35.0); MEAN CORPUSCULAR VOLUME 80.1 fL (80.0-100.0); MEAN PLATELET VOLUME 9.2 fL (7.4-11.0); MONOCYTES # (AUTO) 0.3 x10^3/uL (0.3-0.8); MONOCYTES % (AUTO) 8.2 % (0.0-13.0); NEUTROPHILS # (AUTO) 1.9 x10^3/uL (2.2-4.8); NEUTROPHILS % (AUTO) 57.7 % (42.0-75.0); PLATELET COUNT 127 X10^3/uL (150.0-450.0); RED BLOOD COUNT 3.36 X10^6/uL (3.5-5.4); RED CELL DISTRIBUTION WIDTH 14.9 % (11.6-16.5); WHITE BLOOD COUNT 3.3 X10^3/uL (3.6-10.0)
[2019-10-26 06:55] LABS: ALANINE AMINOTRANSFERASE 6 Units/L (12-78); ALBUMIN 2.6 g/dL (3.4-5.0); ALKALINE PHOSPHATASE 79 Units/L (46-116); ASPARTATE AMINO TRANSFERASE 12 Units/L (15-37); CALCIUM 6.5 mg/dL (8.5-10.1); CHLORIDE 97 mmol/L (98-107); COR CA(FOR HYPOALB) 7.6 mg/dL (8.5-10.1); CREATININE 12.93 mg/dL (0.55-1.02); SODIUM 133 mmol/L (136-145); TOTAL PROTEIN 6.3 g/dL (6.4-8.2); eGFR NON BLACK RACES 3 (>60)
[2019-10-26] MEDS: COREG TAB 12.5 MG PO SCH (08:11)
[2019-10-26] MEDS: PLAVIX PO SCH (08:11)
[2019-10-26] MEDS: MERREM VIAL 500 MG in NS 50 ML IV + SPIKE MINIBAG* 50 ML IV SCH (08:11)
[2019-10-26] MEDS: SYNTHROID 100 mcg TAB PO SCH (08:12)
[2019-10-26] MEDS: MILK OF MAGNESIA PO SCH (08:12)
[2019-10-26] MEDS: DUONEB 0.5 MG/3 MG (3 mL) NEB SCH (08:46)
[2019-10-26] MEDS: PULMICORT NEB TX 0.5 MG NEB SCH (08:46)
[2019-10-26 08:47] LABS: BLOOD UREA NITROGEN 157 mg/dL (7-18)
[2019-10-26] MEDS ORDERED: KAYEXALATE SUSP PO NR (09:00)
[2019-10-26 15:09] VITALS: BP 162/74
== END 2019-10-26 15:05 | DRG 683 ==
LOC: ICU
PROVIDERS: ADMIT Internal Medicine; ATTEND Internal Medicine
CPT/HCPCS: 36415; 71010; 71045; 74000; 74018; 80053; 81001; 83735; 85025; 87070; 87077; 87086; 87088; 87186; 87205; 94640; A4222; G0378; J2185; J2405; J7030; J7050; J7620; J7626